=== PATIENT | male | born 1960 | race Caucasian/White ===

== ENCOUNTER 2022-11-16 11:03 | Inpatient (IN) | payer MEDICARE, MEDICAID ==
[~2022-11-16] VITALS: Ht 165.1 cm; Wt 56.8 kg
[~2022-11-16 11:03] MED LIST: PHEN100C PO
[2022-11-16] MEDS ORDERED: SODIUM CHLORIDE 0.9% 1,000 ML IVB ONE (13:15)
[2022-11-16 14:42] LABS: Basophils # (auto) 0.1 10 ^3/uL (0-0.2); Eosinophils # (auto) 0 10 ^3/uL (0-0.8); Hematocrit 50.9 % (41.0-53.0); Hemoglobin 16.3 g/dL (13.5-17.5); Lymphocytes # (auto) 1.4 10 ^3/uL (0.4-5.4); Mean Corpuscular Hemoglobin 31.2 pg (28.0-32.0); Mean Corpuscular Hgb Conc. 32.1 g/dL (32.0-36.0); Mean Corpuscular Volume 97.1 fL (80.0-100.0); Monocytes # (auto) 1.2 10 ^3/uL (0-1.3); Monocytes % (auto) 9.5 % (0.0-12.0); Neutrophils # (auto) 9.7 10 ^3/uL (1.6-8.6); Neutrophils % (auto) 78.5 % (37.0-80.0); Nucleated Red Blood Cells % 0.2 %; Red Blood Cells 5.25 10^6/uL (4.5-5.90); Red Cell Distribution Width 14.2 % (11.8-14.3); White Blood Cell 12.3 10^3/uL (4.4-10.8)
[2022-11-16 14:55] LABS: Albumin 3.7 g/dL (3.4-5.0); Anion Gap 4 (5-15); BUN/Creatinine Ratio 30.6; Blood Alcohol < 3.0 mg/dL (0-5); Blood Urea Nitrogen 34 mg/dL (7-18); Calcium 9.5 mg/dL (8.5-10.1); Carbon Dioxide 32 mmol/L (21-32); Chloride 128 mmol/L (98-107); GFR African American 86 mL/min; GFR Non-African American 71 mL/min; Glucose 129 mg/dL (74-106); Potassium 4.3 mmol/L (3.5-5.1)
[2022-11-16 14:58] LABS: Alanine Aminotransferase 32 U/L (16-61); Alkaline Phosphatase 170 U/L (45-117); Aspartate Aminotransferase 19 U/L (15-37); Bilirubin, Total 0.3 mg/dL (0.2-1.0); Total Protein 8.5 g/dL (6.4-8.2)
[2022-11-16 15:11] LABS: Sodium 164 mmol/L (136-145)
[2022-11-16] MEDS ORDERED: MORPHINE SULFATE INJ 2 MG/ml SYRG IV PRN (16:15)
[2022-11-16] MEDS ORDERED: BISACODYL 10 MG RECT SUPP PR ONE (16:15)
[2022-11-16] MEDS ORDERED: NITROGLYCERIN 0.4 MG SL TAB SL PRN (16:15)
[2022-11-16] MEDS ORDERED: BISACODYL 10 MG RECT SUPP PR PRN (16:15)
[2022-11-16] MEDS ORDERED: PANTOPRAZOLE 40 MG/10 ML VIAL INJ IV ONE (16:45)
[2022-11-16] MEDS: D5W 5% 1,000 ML IV SCH ×2 (17:11→23:10)
[2022-11-16 22:56] VITALS: BP 124/78
[2022-11-17 01:01] LABS: Potassium 4.2 mmol/L (3.5-5.1)
[2022-11-17 01:02] LABS: BUN/Creatinine Ratio 30.3; Calcium 8.8 mg/dL (8.5-10.1)
[2022-11-17] MEDS: D5W 5% 1,000 ML IV SCH ×2 (04:55→12:30)
[2022-11-17 05:00] VITALS: BP 124/80
[2022-11-17 06:57] LABS: Basophils # (auto) 0 10 ^3/uL (0-0.2); Basophils % (auto) 0.4 % (0.0-2.0); Eosinophils # (auto) 0 10 ^3/uL (0-0.8); Eosinophils % (auto) 0.5 % (0.0-7.0); Hematocrit 41.4 % (41.0-53.0); Lymphocytes # (auto) 1.4 10 ^3/uL (0.4-5.4); Lymphocytes % (auto) 20.5 % (10.0-50.0); Mean Corpuscular Hgb Conc. 31.4 g/dL (32.0-36.0); Mean Corpuscular Volume 98.6 fL (80.0-100.0); Monocytes # (auto) 0.6 10 ^3/uL (0-1.3); Neutrophils # (auto) 4.9 10 ^3/uL (1.6-8.6); Neutrophils % (auto) 69.6 % (37.0-80.0); Nucleated Red Blood Cells % 0.1 %; Red Cell Distribution Width 14.4 % (11.8-14.3)
[2022-11-17 07:15] LABS: Calcium 8.7 mg/dL (8.5-10.1); Potassium 3.8 mmol/L (3.5-5.1)
[2022-11-17 07:17] LABS: BUN/Creatinine Ratio 33.7
[2022-11-17 08:00] VITALS: BP 126/83
[2022-11-17 09:00] VITALS: BP 126/83
[2022-11-17] MEDS ORDERED: BISACODYL 10 MG RECT SUPP PR PRN (10:00)
[2022-11-17] MEDS: PHENYTOIN SODIUM 100 MG CAP PO SCH ×2 (10:00→21:09)
[2022-11-17] MEDS: ENOXAPARIN SOD 40 MG/0.4 ML SYRINGE SC SCH (10:39)
[2022-11-17] MEDS: PANTOPRAZOLE 40 MG/10 ML VIAL INJ IV SCH (10:39)
[2022-11-17] MEDS ORDERED: FLEET MINERAL OIL ENEMA 133 ML PR ONE ×2 (11:00→20:45)
[2022-11-17 12:08] LABS: Urine Bacteria FEW /hpf (None Seen); Urine Blood Negative /uL (Negative); Urine Mucus FEW (None Seen); Urine Specific Gravity 1.026 (1.001-1.035); Urine WBC 27 /hpf (0 - 3)
[2022-11-17 12:39] LABS: Anion Gap 3 (5-15); BUN/Creatinine Ratio 31.3; Blood Urea Nitrogen 25 mg/dL (7-18); Calcium 8.2 mg/dL (8.5-10.1); Carbon Dioxide 30 mmol/L (21-32); Chloride 121 mmol/L (98-107); GFR African American 126 mL/min; GFR Non-African American 104 mL/min; Glucose 101 mg/dL (74-106); Potassium 3.7 mmol/L (3.5-5.1); Sodium 154 mmol/L (136-145)
[2022-11-17 13:00] VITALS: BP 127/80
[2022-11-17] MEDS: SOD CHL 0.45% 1,000 ML IV SCH ×2 (15:22→20:15)
[2022-11-17 17:00] VITALS: BP 148/88
[2022-11-17 20:52] LABS: Chloride 117 mmol/L (98-107); Potassium 4.1 mmol/L (3.5-5.1); Sodium 150 mmol/L (136-145)
[2022-11-17 20:53] LABS: Anion Gap 6 (5-15); BUN/Creatinine Ratio 26.7; Blood Urea Nitrogen 24 mg/dL (7-18); Calcium 8.5 mg/dL (8.5-10.1); Carbon Dioxide 27 mmol/L (21-32); GFR African American 110 mL/min; GFR Non-African American 91 mL/min; Glucose 85 mg/dL (74-106)
[2022-11-17 22:00] VITALS: BP 109/53
[2022-11-17] MEDS ORDERED: ACETAMINOPHEN 325 MG TAB PO PRN (22:45)
[2022-11-18] VITALS (68 sets, daily range): BP systolic 84–122; BP diastolic 44–80
[2022-11-18 01:13] LABS: Anion Gap 6 (5-15); BUN/Creatinine Ratio 25.3; Blood Urea Nitrogen 24 mg/dL (7-18); Carbon Dioxide 25 mmol/L (21-32); Chloride 117 mmol/L (98-107); GFR African American 103 mL/min; GFR Non-African American 85 mL/min; Glucose 88 mg/dL (74-106); Potassium 3.9 mmol/L (3.5-5.1); Sodium 148 mmol/L (136-145)
[2022-11-18] MEDS: SOD CHL 0.45% 1,000 ML IV SCH (04:15)
[2022-11-18] MEDS ORDERED: NOREPINEPHRINE 8 MG/250ML KIT 250 ML IV ONE (06:11)
[2022-11-18] MEDS ORDERED: SODIUM CHLORIDE 0.9% 1,000 ML IV SCH (06:30)
[2022-11-18 06:35] LABS: BUN/Creatinine Ratio 17.6; Calcium 8.1 mg/dL (8.5-10.1); Potassium 3.9 mmol/L (3.5-5.1)
[2022-11-18] MEDS: NOREPINEPHRINE 8 MG/250ML KIT 250 ML IV SCH (07:39)
[2022-11-18 07:44] LABS: Basophils # (auto) 0 10 ^3/uL (0-0.2); Basophils % (auto) 0.1 % (0.0-2.0); Eosinophils # (auto) 0 10 ^3/uL (0-0.8); Eosinophils % (auto) 0.1 % (0.0-7.0); Hematocrit 38.9 % (41.0-53.0); Hemoglobin 12.3 g/dL (13.5-17.5); Lymphocytes # (auto) 1.4 10 ^3/uL (0.4-5.4); Lymphocytes % (auto) 6.3 % (10.0-50.0); Mean Corpuscular Hgb Conc. 31.6 g/dL (32.0-36.0); Mean Corpuscular Volume 97.9 fL (80.0-100.0); Monocytes # (auto) 1.2 10 ^3/uL (0-1.3); Monocytes % (auto) 5.3 % (0.0-12.0); Neutrophils # (auto) 19.4 10 ^3/uL (1.6-8.6); Neutrophils % (auto) 88.2 % (37.0-80.0); Nucleated Red Blood Cells % 0.1 %; Red Blood Cells 3.98 10^6/uL (4.5-5.90); Red Cell Distribution Width 13.9 % (11.8-14.3)
[2022-11-18] MEDS ORDERED: cefTRIAXone 1GM/50ML D5W 50 ML IV ONE (09:30)
[2022-11-18] MEDS ORDERED: FLEET MINERAL OIL ENEMA 133 ML PR ONE (09:45)
[2022-11-18] MEDS ORDERED: PHENYTOIN SODIUM 100 MG CAP PO SCH (10:00)
[2022-11-18] MEDS: PHENYTOIN SODIUM 100 MG CAP PO SCH (10:07)
[2022-11-18] MEDS: D5W 5% 1,000 ML IV SCH ×2 (10:07→17:45)
[2022-11-18] MEDS: PANTOPRAZOLE 40 MG/10 ML VIAL INJ IV SCH (10:08)
[2022-11-18] MEDS: ENOXAPARIN SOD 40 MG/0.4 ML SYRINGE SC SCH (10:09)
[2022-11-18 13:05] LABS: BUN/Creatinine Ratio 18.1; Calcium 7.2 mg/dL (8.5-10.1); Potassium 4.2 mmol/L (3.5-5.1)
[2022-11-18] MEDS: PIPERACILLIN-TAZOB 3.375GM 100 ML IV SCH ×2 (13:53→22:19)
[2022-11-19] VITALS (95 sets, daily range): BP systolic 84–125; BP diastolic 51–79
[2022-11-19] MEDS: PIPERACILLIN-TAZOB 3.375GM 100 ML IV SCH ×2 (01:00→05:37)
[2022-11-19] MEDS: D5W 5% 1,000 ML IV SCH ×5 (01:45→23:58)
[2022-11-19] MEDS: NOREPINEPHRINE 8 MG/250ML KIT 250 ML IV SCH (03:36)
[2022-11-19] MEDS ORDERED: cefTRIAXone 1GM/50ML D5W 50 ML IV SCH (09:00)
[2022-11-19] MEDS: ENOXAPARIN SOD 40 MG/0.4 ML SYRINGE SC SCH (09:15)
[2022-11-19] MEDS: PHENYTOIN SODIUM 100 MG CAP PO SCH (09:15)
[2022-11-19] MEDS: PANTOPRAZOLE 40 MG/10 ML VIAL INJ IV SCH (09:15)
[2022-11-19] MEDS ORDERED: cefTRIAXone 1GM/50ML D5W 50 ML IV ONE (10:00)
[2022-11-20] VITALS (90 sets, daily range): BP systolic 81–116; BP diastolic 48–76
[2022-11-20] MEDS: NOREPINEPHRINE 8 MG/250ML KIT 250 ML IV SCH ×2 (06:37→06:53)
[2022-11-20] MEDS: cefTRIAXone 1GM/50ML D5W 50 ML IV SCH (08:47)
[2022-11-20] MEDS: PANTOPRAZOLE 40 MG/10 ML VIAL INJ IV SCH (08:48)
[2022-11-20] MEDS: D5W 5% 1,000 ML IV SCH ×2 (08:48→18:03)
[2022-11-20] MEDS: ENOXAPARIN SOD 40 MG/0.4 ML SYRINGE SC SCH (08:48)
[2022-11-20] MEDS: PHENYTOIN SODIUM 100 MG CAP PO SCH (08:48)
[2022-11-20] MEDS: MIDODRINE HCL 10 MG TAB PO SCH ×2 (12:00→17:57)
[2022-11-21] VITALS (64 sets, daily range): BP systolic 82–120; BP diastolic 49–76
[2022-11-21] MEDS: D5W 5% 1,000 ML IV SCH ×3 (02:27→12:33)
[2022-11-21] MEDS: MIDODRINE HCL 10 MG TAB PO SCH ×3 (06:00→18:09)
[2022-11-21 08:03] LABS: Basophils # (auto) 0 10 ^3/uL (0-0.2); Basophils % (auto) 0.5 % (0.0-2.0); Eosinophils # (auto) 0.2 10 ^3/uL (0-0.8); Eosinophils % (auto) 3.7 % (0.0-7.0); Hematocrit 34.1 % (41.0-53.0); Hemoglobin 11.7 g/dL (13.5-17.5); Lymphocytes # (auto) 1.1 10 ^3/uL (0.4-5.4); Lymphocytes % (auto) 16.6 % (10.0-50.0); Mean Corpuscular Hemoglobin 31.7 pg (28.0-32.0); Mean Corpuscular Hgb Conc. 34.3 g/dL (32.0-36.0); Mean Corpuscular Volume 92.4 fL (80.0-100.0); Monocytes # (auto) 0.5 10 ^3/uL (0-1.3); Monocytes % (auto) 6.9 % (0.0-12.0); Neutrophils # (auto) 4.8 10 ^3/uL (1.6-8.6); Neutrophils % (auto) 72.3 % (37.0-80.0); Red Blood Cells 3.69 10^6/uL (4.5-5.90); Red Cell Distribution Width 13.1 % (11.8-14.3); White Blood Cell 6.6 10^3/uL (4.4-10.8)
[2022-11-21 08:20] LABS: BUN/Creatinine Ratio 5.8; Calcium 7.5 mg/dL (8.5-10.1)
[2022-11-21 08:28] LABS: Potassium 2.8 mmol/L (3.5-5.1)
[2022-11-21] MEDS: PANTOPRAZOLE 40 MG/10 ML VIAL INJ IV SCH (09:47)
[2022-11-21] MEDS: cefTRIAXone 1GM/50ML D5W 50 ML IV SCH (09:47)
[2022-11-21] MEDS: ENOXAPARIN SOD 40 MG/0.4 ML SYRINGE SC SCH (09:48)
[2022-11-21] MEDS: PHENYTOIN SODIUM 100 MG CAP PO SCH (09:48)
[2022-11-21] MEDS: POTASSIUM CHL 20MEQ/100ML 100 ML IV SCH ×3 (10:55→13:06)
[2022-11-22] MEDS: D5W 5% 1,000 ML IV SCH ×3 (01:15→19:52)
[2022-11-22 05:28] VITALS: BP 100/70
[2022-11-22] MEDS: MIDODRINE HCL 10 MG TAB PO SCH ×3 (05:44→18:37)
[2022-11-22 09:00] VITALS: BP 96/60
[2022-11-22] MEDS: cefTRIAXone 1GM/50ML D5W 50 ML IV SCH (09:34)
[2022-11-22] MEDS: PHENYTOIN SODIUM 100 MG CAP PO SCH (09:34)
[2022-11-22] MEDS: ENOXAPARIN SOD 40 MG/0.4 ML SYRINGE SC SCH (09:34)
[2022-11-22] MEDS: PANTOPRAZOLE 40 MG/10 ML VIAL INJ IV SCH (09:34)
[2022-11-22 12:14] LABS: BUN/Creatinine Ratio 10.2; Calcium 7.6 mg/dL (8.5-10.1); Potassium 3.4 mmol/L (3.5-5.1)
[2022-11-22] MEDS: POTASSIUM CHL 20MEQ/100ML 100 ML IV SCH ×2 (12:57→15:21)
[2022-11-22 13:19] VITALS: BP 95/66
[2022-11-22 17:27] VITALS: BP 100/66
[2022-11-22] MEDS: Ensure HIGH Protein Chocolate 8oz Bottle PO SCH (18:37)
[2022-11-22 21:37] VITALS: BP 121/68
[2022-11-23] MEDS: D5W 5% 1,000 ML IV SCH ×2 (01:45→09:45)
[2022-11-23 05:02] VITALS: BP 100/66
[2022-11-23] MEDS: MIDODRINE HCL 10 MG TAB PO SCH ×2 (05:58→12:12)
[2022-11-23 06:41] LABS: Albumin 2.2 g/dL (3.4-5.0); BUN/Creatinine Ratio 12.7; Bilirubin, Total 0.2 mg/dL (0.2-1.0); Calcium 7.7 mg/dL (8.5-10.1); Total Protein 5.7 g/dL (6.4-8.2)
[2022-11-23] MEDS: cefTRIAXone 1GM/50ML D5W 50 ML IV SCH (09:00)
[2022-11-23] MEDS: PHENYTOIN SODIUM 100 MG CAP PO SCH (09:06)
[2022-11-23] MEDS: ENOXAPARIN SOD 40 MG/0.4 ML SYRINGE SC SCH (09:06)
[2022-11-23] MEDS: Ensure HIGH Protein Chocolate 8oz Bottle PO SCH (09:11)
[2022-11-23] MEDS: PANTOPRAZOLE 40 MG/10 ML VIAL INJ IV SCH (10:00)
[2022-11-23] MEDS ORDERED: MIDO10TA2 PO (10:04)
[2022-11-23] MEDS ORDERED: POTA-220 PO (10:04)
[2022-11-23] MEDS ORDERED: CIPR-173 PO (10:04)
[2022-11-23 10:37] VITALS: BP 97/61
[2022-11-23 14:57] VITALS: BP 97/61
[2022-11-23 15:55] VITALS: BP 102/64
== END 2022-11-23 16:28 | disposition home or self-care (01) | DRG 871 ==
LOC: EDUNIT# 11:03 → EDBD 11:03 → ER 11:03 → TELE 16:19 → TELE-WESTW 22:38 → ICU WEST 11-18 06:29 → TELE-WESTW 11-21 16:43
PROVIDERS: ADMIT Nurse Practitioner Family; ATTEND Family Medicine
DX: A41.9 Sepsis, unspecified organism (principal); J69.0 Pneumonitis due to inhalation of food and vomit; R65.21 Severe sepsis with septic shock; K56.699 Other intestinal obstruction unspecified as to partial versus complete obstruction; E87.0 Hyperosmolality and hypernatremia; N39.0 Urinary tract infection, site not specified; N17.9 Acute kidney failure, unspecified; K56.41 Fecal impaction; T42.0X5A Adverse effect of hydantoin derivatives, initial encounter; R73.9 Hyperglycemia, unspecified; Z20.822 Contact with and (suspected) exposure to COVID-19; E86.0 Dehydration; E87.6 Hypokalemia; F79 Unspecified intellectual disabilities; G40.909 Epilepsy, unspecified, not intractable, without status epilepticus; Z90.5 Acquired absence of kidney; Z80.3 Family history of malignant neoplasm of breast; Y92.89 Other specified places as the place of occurrence of the external cause; E83.41 Hypermagnesemia
CPT/HCPCS: 36415; 70450; 71045; 74018; 74176; 80048; 80053; 80185; 80320; 81001; 82533; 83036; 83735; 84443; 85025; 87040; 87081; 87086; 87088; 87186; 87426; 93005; 93306; 96361; 96374; C9113; G0378; J0696; J2543; J3480; J7042

== ENCOUNTER 2023-10-15 22:19 | Emergency (ER) | payer MEDICARE, MEDICAID ==
[~2023-10-15] VITALS: Ht 177.8 cm; Wt 68.2 kg
[~2023-10-15 22:19] MED LIST changes: +CIPR-173 PO; +MIDO10TA3 PO; +POTA-220 PO
[2023-10-15] MEDS ORDERED: LORazepam 2MG/ML-1ML VIAL IV ONE ×2 (22:30→23:15)
[2023-10-15 23:00] VITALS: PULSE 74; RESP 18; O2SAT 96
[2023-10-15] MEDS ORDERED: levETIRAcetam 1000 mg/100ml 100 ML IV ONE (23:15)
[2023-10-16 00:09] LABS: Basophils # (auto) 0 10 ^3/uL (0-0.2); Basophils % (auto) 0.4 % (0.0-2.0); Eosinophils # (auto) 0.5 10 ^3/uL (0-0.8); Eosinophils % (auto) 6.5 % (0.0-7.0); Hematocrit 38.9 % (41.0-53.0); Hemoglobin 12.8 g/dL (13.5-17.5); Lymphocytes # (auto) 1.2 10 ^3/uL (0.4-5.4); Lymphocytes % (auto) 16.5 % (10.0-50.0); Mean Corpuscular Hemoglobin 29.9 pg (28.0-32.0); Mean Corpuscular Volume 90.6 fL (80.0-100.0); Monocytes # (auto) 0.6 10 ^3/uL (0-1.3); Monocytes % (auto) 8.3 % (0.0-12.0); Neutrophils # (auto) 4.8 10 ^3/uL (1.6-8.6); Neutrophils % (auto) 68.3 % (37.0-80.0); Red Cell Distribution Width 14.4 % (11.8-14.3); White Blood Cell 7.1 10^3/uL (4.4-10.8)
[2023-10-16 00:25] LABS: Alanine Aminotransferase 27 U/L (7-40); Albumin 4.3 g/dL (3.2-4.8); Alkaline Phosphatase 137 U/L (46-116); Anion Gap 9 (5-15); Aspartate Aminotransferase 23 U/L (13-40); BUN/Creatinine Ratio 15.5 (10.0-20.0); Bilirubin, Total 0.3 mg/dL (0.2-1.0); Blood Urea Nitrogen 11 mg/dL (9-23); Calcium 9.3 mg/dL (8.7-10.4); Carbon Dioxide 23 mmol/L (20-30); Chloride 104 mmol/L (98-107); Glucose 104 mg/dL (74-106); Magnesium 2.1 mg/dL (1.6-2.6); Potassium 4.4 mmol/L (3.5-5.1); Sodium 136 mmol/L (136-145); Total Protein 7.5 g/dL (5.7-8.2)
[2023-10-16] MEDS ORDERED: PHENYTOIN SODIUM 50 MG/ML 2ML VIAL IV ONE ×2 (01:00→01:30)
[2023-10-16] MEDS ORDERED: PHENYTOIN SODIUM 100 MG CAP PO ONE (01:00)
[2023-10-16 01:58] VITALS: BP 100/67; PULSE 83; RESP 16; TEMP 97.9; O2SAT 91
== END 2023-10-16 02:31 | disposition home or self-care (01) ==
LOC: ER 22:19 → EDBD 22:19 → EDUNIT# 22:19 → ER 10-16 02:15
DX: R56.9 Unspecified convulsions (principal)
CPT/HCPCS: 36415; 71045; 80053; 80185; 83735; 85025; 93005; 96365; 96375; 99285; J1165; J1953; J2060

== ENCOUNTER 2024-03-20 15:40 | Emergency (ER) | payer MEDICARE, MEDICAID ==
[~2024-03-20] VITALS: Ht 193 cm; Wt 60.0 kg
[2024-03-20 17:53] LABS: Basophils # (auto) 0 10 ^3/uL (0-0.2); Basophils % (auto) 0.1 % (0.0-2.0); Eosinophils # (auto) 0.1 10 ^3/uL (0-0.8); Eosinophils % (auto) 1.3 % (0.0-7.0); Hematocrit 50.4 % (41.0-53.0); Hemoglobin 16.7 g/dL (13.5-17.5); Lymphocytes # (auto) 1.8 10 ^3/uL (0.4-5.4); Lymphocytes % (auto) 18.2 % (10.0-50.0); Mean Corpuscular Hemoglobin 31.1 pg (28.0-32.0); Mean Corpuscular Hgb Conc. 33.1 g/dL (32.0-36.0); Monocytes # (auto) 0.9 10 ^3/uL (0-1.3); Monocytes % (auto) 9.7 % (0.0-12.0); Neutrophils # (auto) 6.9 10 ^3/uL (1.6-8.6); Neutrophils % (auto) 70.7 % (37.0-80.0); Red Blood Cells 5.36 10^6/uL (4.5-5.90); Red Cell Distribution Width 13.8 % (11.8-14.3); White Blood Cell 9.7 10^3/uL (4.4-10.8)
[2024-03-20 18:31] LABS: Alanine Aminotransferase 46 U/L (7-40); Albumin 4.6 g/dL (3.2-4.8); Alkaline Phosphatase 180 U/L (46-116); Anion Gap 14 (5-15); Aspartate Aminotransferase 31 U/L (13-40); BUN/Creatinine Ratio 15.9 (10.0-20.0); Blood Urea Nitrogen 13 mg/dL (9-23); Calcium 10.6 mg/dL (8.7-10.4); Carbon Dioxide 20 mmol/L (20-30); Chloride 107 mmol/L (98-107); Glucose 107 mg/dL (74-106); Lipase 36 U/L (12-53); Potassium 4.3 mmol/L (3.5-5.1); Sodium 141 mmol/L (136-145)
[2024-03-20 18:32] LABS: Bilirubin, Total 0.5 mg/dL (0.2-1.0); Total Protein 8.6 g/dL (5.7-8.2)
[2024-03-20 19:45] LABS: Lactic Acid w/Reflex 2.1 mmol/L (0.4-2.0)
[2024-03-20] MEDS: KETOROLAC TROMETH 60MG/2ML VIAL IM ONE (22:19)
[2024-03-20] MEDS: ONDANSETRON HCL 4 MG/2 ML VIAL IM ONE (22:20)
[2024-03-20] MEDS: SODIUM CHLORIDE 0.9% 1,000 ML IV ONE (22:24)
[2024-03-20] MEDS: KETOROLAC TROMETH 30 MG/ML 1ML VIAL IV ONE (22:55)
[2024-03-20] MEDS: ONDANSETRON HCL 4 MG/2 ML VIAL IV ONE (22:56)
[2024-03-21] MEDS: cefTRIAXone SOD 1,000 MG VL IM ONE (00:49)
[2024-03-21 01:10] VITALS: BP 137/65; PULSE 96; RESP 20; TEMP 97.9; O2SAT 96
== END 2024-03-21 01:49 | disposition admitted as inpatient to this hospital (09) ==
LOC: ER 15:40
DX: E86.0 Dehydration (principal); R00.0 Tachycardia, unspecified; Z98.890 Other specified postprocedural states; Z79.899 Other long term (current) drug therapy
CPT/HCPCS: 36415; 71045; 80053; 83605; 83690; 83880; 84484; 85025; 93005; 96361; 96372; 96374; 96375; 99285; J0696; J1885; J2405; J7030

== ENCOUNTER 2024-04-09 11:20 | Inpatient (IN) | payer MEDICARE, MEDICAID ==
[~2024-04-09] VITALS: Ht 177.8 cm; Wt 93.0 kg
[2024-04-09 12:10] VITALS: PULSE 111; RESP 20; O2SAT 92
[2024-04-09 13:01] LABS: Basophils # (auto) 0 10 ^3/uL (0-0.2); Basophils % (auto) 0.2 % (0.0-2.0); Eosinophils # (auto) 0 10 ^3/uL (0-0.8); Eosinophils % (auto) 0.3 % (0.0-7.0); Hematocrit 52.1 % (41.0-53.0); Lymphocytes % (auto) 21.2 % (10.0-50.0); Mean Corpuscular Hemoglobin 30.8 pg (28.0-32.0); Mean Corpuscular Hgb Conc. 32.6 g/dL (32.0-36.0); Mean Corpuscular Volume 94.5 fL (80.0-100.0); Monocytes # (auto) 0.8 10 ^3/uL (0-1.3); Monocytes % (auto) 8.2 % (0.0-12.0); Neutrophils # (auto) 6.6 10 ^3/uL (1.6-8.6); Neutrophils % (auto) 70.1 % (37.0-80.0); Nucleated Red Blood Cells % 0.1 %; Red Blood Cells 5.51 10^6/uL (4.5-5.90); Red Cell Distribution Width 14.3 % (11.8-14.3); White Blood Cell 9.4 10^3/uL (4.4-10.8)
[2024-04-09 13:16] LABS: Chloride 126 mmol/L (98-107); Potassium 3.9 mmol/L (3.5-5.1)
[2024-04-09 13:17] LABS: Anion Gap 10 (5-15); Calcium 10.6 mg/dL (8.5-10.1); Carbon Dioxide 29 mmol/L (20-30)
[2024-04-09 13:22] LABS: Blood Urea Nitrogen 31 mg/dL (9-23); Glucose 123 mg/dL (74-106)
[2024-04-09 13:28] LABS: Sodium 165 mmol/L (136-145)
[2024-04-09] MEDS: diphenhdrAMINE HCL 50 MG/1 ML VL IV ONE (16:41)
[2024-04-09] MEDS ORDERED: DOCUSATE SOD 100 MG CAP PO PRN (18:15)
[2024-04-09] MEDS ORDERED: ACETAMINOPHEN 325 MG TAB PO PRN (18:15)
[2024-04-09] MEDS ORDERED: MORPHINE SULFATE INJ 2 MG/ml SYRG IV PRN (18:15)
[2024-04-09] MEDS ORDERED: NITROGLYCERIN 0.4 MG SL TAB SL PRN (18:15)
[2024-04-09] MEDS ORDERED: ONDANSETRON HCL 4 MG/2 ML VIAL IV PRN (18:15)
[2024-04-09] MEDS ORDERED: D5W 5% 1,000 ML IV SCH (18:15)
[2024-04-09] MEDS: D5W 5% 1,000 ML IV ONE ×2 (18:40)
[2024-04-09 20:00] VITALS: PULSE 107
[2024-04-09 21:00] VITALS: BP 113/68; PULSE 107; RESP 18; TEMP 97.4; O2SAT 96
[2024-04-09 21:07] VITALS: PULSE 107; RESP 18; O2SAT 96
[2024-04-09] MEDS: FLEET ENEMA(ADULT) 135 ML PR ONE (21:39)
[2024-04-09] MEDS ORDERED: LEVE250T18 PO (21:47)
[2024-04-10] VITALS (8 sets, daily range): BP systolic 110–145; BP diastolic 67–80; PULSE 80–122; RESP 15–19; TEMP 97.4–98.2; O2SAT 93–99
[2024-04-10] MEDS: D5W 5% 1,000 ML IV SCH ×2 (01:41→13:45)
[2024-04-10] MEDS ORDERED: D5W 5% 1,000 ML IV SCH ×2 (02:00)
[2024-04-10 06:18] LABS: Basophils # (auto) 0 10 ^3/uL (0-0.2); Basophils % (auto) 0.1 % (0.0-2.0); Eosinophils # (auto) 0 10 ^3/uL (0-0.8); Eosinophils % (auto) 0.4 % (0.0-7.0); Hemoglobin 15.8 g/dL (13.5-17.5); Lymphocytes # (auto) 1.4 10 ^3/uL (0.4-5.4); Lymphocytes % (auto) 14.1 % (10.0-50.0); Mean Corpuscular Hgb Conc. 32.9 g/dL (32.0-36.0); Mean Corpuscular Volume 94.4 fL (80.0-100.0); Monocytes # (auto) 0.8 10 ^3/uL (0-1.3); Monocytes % (auto) 7.9 % (0.0-12.0); Neutrophils # (auto) 7.8 10 ^3/uL (1.6-8.6); Neutrophils % (auto) 77.5 % (37.0-80.0); Red Blood Cells 5.09 10^6/uL (4.5-5.90); Red Cell Distribution Width 14.4 % (11.8-14.3); White Blood Cell 10.1 10^3/uL (4.4-10.8)
[2024-04-10 06:35] LABS: Alanine Aminotransferase 31 U/L (7-40); Albumin 4.2 g/dL (3.2-4.8); Alkaline Phosphatase 115 U/L (46-116); Anion Gap 11 (5-15); Aspartate Aminotransferase 21 U/L (13-40); BUN/Creatinine Ratio 23.5 (10.0-20.0); Blood Urea Nitrogen 24 mg/dL (9-23); Calcium 9.4 mg/dL (8.5-10.1); Carbon Dioxide 28 mmol/L (20-30); Chloride 122 mmol/L (98-107); Glucose 116 mg/dL (74-106); Potassium 3.6 mmol/L (3.5-5.1); Total Protein 7.2 g/dL (5.7-8.2)
[2024-04-10 06:36] LABS: Bilirubin, Total 0.6 mg/dL (0.2-1.0)
[2024-04-10 06:51] LABS: Sodium 161 mmol/L (136-145)
[2024-04-10] MEDS ORDERED: LORazepam 2MG/ML-1ML VIAL IV PRN (22:15)
[2024-04-11] VITALS (7 sets, daily range): BP systolic 115–135; BP diastolic 69–81; PULSE 82–96; RESP 17–20; TEMP 97.4–98.1; O2SAT 92–99
[2024-04-11] MEDS: SOD CHL 0.45% 1,000 ML IV ONE (02:26)
[2024-04-11] MEDS: FLEET ENEMA(ADULT) 135 ML PR ONE (08:45)
[2024-04-11] MEDS ORDERED: LACTULOSE 20Gm/30ML SOLN PO SCH (10:00)
[2024-04-11] MEDS: OXcarbazepine 300 MG TAB PO SCH (11:26)
[2024-04-11] MEDS: LACTULOSE 20Gm/30ML SOLN PO SCH (11:26)
[2024-04-11] MEDS: POLYETHYLENE GLYCOL 17 GM PWDR PO SCH (11:26)
[2024-04-11 14:00] LABS: Chloride 119 mmol/L (98-107); Potassium 3.3 mmol/L (3.5-5.1); Sodium 157 mmol/L (136-145)
[2024-04-11 14:01] LABS: Anion Gap 7 (5-15); Calcium 9.7 mg/dL (8.5-10.1); Carbon Dioxide 31 mmol/L (20-30)
[2024-04-11 14:06] LABS: BUN/Creatinine Ratio 21.4 (10.0-20.0); Blood Urea Nitrogen 22 mg/dL (9-23); Glucose 115 mg/dL (74-106)
[2024-04-11] MEDS: POTASSIUM CHL 20MEQ/100ML 100 ML IV SCH (20:30)
[2024-04-12 05:00] VITALS: BP 114/73; PULSE 85; RESP 18; TEMP 98; O2SAT 95
[2024-04-12 06:07] LABS: Calcium 9.7 mg/dL (8.5-10.1); Chloride 118 mmol/L (98-107); Potassium 3.8 mmol/L (3.5-5.1); Sodium 154 mmol/L (136-145)
[2024-04-12 06:08] LABS: Anion Gap 9 (5-15); Carbon Dioxide 27 mmol/L (20-30)
[2024-04-12 06:13] LABS: BUN/Creatinine Ratio 17.7 (10.0-20.0); Blood Urea Nitrogen 17 mg/dL (9-23); Glucose 99 mg/dL (74-106)
[2024-04-12 09:00] VITALS: BP 128/79; PULSE 74; RESP 16; TEMP 97.2; O2SAT 96
[2024-04-12] MEDS: FLEET ENEMA(ADULT) 135 ML PR ONE (12:30)
[2024-04-12 13:00] VITALS: BP 122/77; PULSE 77; RESP 12; TEMP 97.2; O2SAT 95
[2024-04-12 16:59] VITALS: BP 126/78; PULSE 92; RESP 16; TEMP 97.3; O2SAT 93
[2024-04-12 21:00] VITALS: BP 126/78; PULSE 99; RESP 20; TEMP 98.8; O2SAT 95
[2024-04-13 05:59] LABS: Calcium 9.5 mg/dL (8.5-10.1); Chloride 120 mmol/L (98-107); Potassium 3.7 mmol/L (3.5-5.1); Sodium 158 mmol/L (136-145)
[2024-04-13 06:00] LABS: Anion Gap 11 (5-15); Carbon Dioxide 27 mmol/L (20-30)
[2024-04-13 06:05] LABS: Blood Urea Nitrogen 19 mg/dL (9-23); Glucose 101 mg/dL (74-106)
[2024-04-13 09:00] VITALS: BP 116/83; PULSE 97; RESP 17; TEMP 97.1; O2SAT 95
[2024-04-13] MEDS: D5W 5% 1,000 ML IV SCH (10:00)
[2024-04-13 13:00] VITALS: BP 119/71; PULSE 85; RESP 14; TEMP 97.1; O2SAT 92
[2024-04-13 17:00] VITALS: BP_SYST 119; BP_SYST 131; BP_DIAS 71; BP_DIAS 73; PULSE 85; PULSE 97; RESP 14; RESP 20; TEMP 97; TEMP 97.1; O2SAT 92; O2SAT 95
[2024-04-13 20:00] VITALS: PULSE 84; RESP 17; O2SAT 95
[2024-04-13 21:53] VITALS: BP 122/69; PULSE 84; RESP 17; TEMP 97.8; O2SAT 95
[2024-04-13] MEDS: ACETAMINOPHEN 325 MG TAB PO PRN (23:02)
[2024-04-14 01:04] VITALS: BP 123/74; PULSE 83; RESP 17; TEMP 97.9; O2SAT 93
[2024-04-14 05:15] VITALS: BP 125/79; PULSE 75; RESP 17; TEMP 97.9; O2SAT 97
[2024-04-14 07:32] LABS: Anion Gap 5 (5-15); Carbon Dioxide 28 mmol/L (20-30); Chloride 118 mmol/L (98-107); Potassium 3.3 mmol/L (3.5-5.1)
[2024-04-14 07:33] LABS: Calcium 9.1 mg/dL (8.5-10.1)
[2024-04-14 07:38] LABS: BUN/Creatinine Ratio 17.8 (10.0-20.0); Blood Urea Nitrogen 16 mg/dL (9-23); Glucose 114 mg/dL (74-106)
[2024-04-14 07:41] LABS: Sodium 151 mmol/L (136-145)
[2024-04-14 08:00] VITALS: PULSE 71; RESP 16; O2SAT 96
[2024-04-14 09:00] VITALS: BP 122/72; PULSE 71; RESP 16; TEMP 96.5; O2SAT 96
[2024-04-14] MEDS ORDERED: POTASSIUM CHL 20MEQ/100ML 100 ML IV SCH (09:30)
[2024-04-14] MEDS ORDERED: OXCA600T3 PO (10:21)
[2024-04-14] MEDS: POTASSIUM EFFERVESENT TAB 25 MEQ PO ONE (11:06)
[2024-04-14 12:15] VITALS: BP 138/76; PULSE 76; RESP 17; TEMP 96.8; O2SAT 96
== END 2024-04-14 13:20 | disposition home health service (06) | DRG 389 ==
LOC: ER 11:20 → EDBD 11:20 → EDUNIT# 11:20 → TELE 18:06 → ER 18:06 → TELE-EAST 20:04
PROVIDERS: ADMIT Nurse Practitioner Family; ATTEND Family Medicine
DX: K56.41 Fecal impaction (principal); E87.0 Hyperosmolality and hypernatremia; N17.9 Acute kidney failure, unspecified; R64 Cachexia; N39.0 Urinary tract infection, site not specified; E87.20 Acidosis, unspecified; K52.89 Other specified noninfective gastroenteritis and colitis; R62.7 Adult failure to thrive; E86.0 Dehydration; R62.50 Unspecified lack of expected normal physiological development in childhood; G40.909 Epilepsy, unspecified, not intractable, without status epilepticus; F79 Unspecified intellectual disabilities; E87.6 Hypokalemia; Z68.29 Body mass index [BMI] 29.0-29.9, adult; Z80.3 Family history of malignant neoplasm of breast; Z82.49 Family history of ischemic heart disease and other diseases of the circulatory system; Z74.01 Bed confinement status; Z79.899 Other long term (current) drug therapy
CPT/HCPCS: 36415; 71045; 74018; 74176; 80048; 80053; 85025; 87081; G0378

== ENCOUNTER 2024-09-19 14:19 | Inpatient (IN) | payer OTHER, MEDICAID ==
[~2024-09-19] VITALS: Ht 177.8 cm; Wt 57.7 kg
[~2024-09-19 14:19] MED LIST changes: -CIPR-173 PO; +LEVE250T18 PO; +OXCA600T3 PO; -PHEN100C PO; -POTA-220 PO
[2024-09-19 15:10] VITALS: PULSE 97; RESP 13; O2SAT 95
--- NOTE | 2024-09-19 16:37 | DVH ---
CHEST RADIOGRAPH Indication: gen weak Technique: Single frontal view of the chest was obtained COMPARISON: XY CHEST PORTABLE on DOS: 04/09/24, XY CHEST PORTABLE on DOS: 03/20/24, XY CHEST PORTABLE on DOS: 10/15/23, CXRP on DOS: 11/19/22, CHEST PORTABLE on DOS: 11/19/22 FINDINGS: Lines and Tubes: None Lungs: Clear Pleura: No effusion. No pneumothorax. Cardiomediastinal contours: Unremarkable Bones: Unremarkable IMPRESSION: 1. No acute disease.
[2024-09-19 16:53] LABS: Basophils # (auto) 0 10 ^3/uL (0-0.2); Basophils % (auto) 0.1 % (0.0-2.0); Eosinophils # (auto) 0.1 10 ^3/uL (0-0.8); Eosinophils % (auto) 0.9 % (0.0-7.0); Hematocrit 50.8 % (41.0-53.0); Hemoglobin 15.8 g/dL (13.5-17.5); Lymphocytes # (auto) 1.6 10 ^3/uL (0.4-5.4); Lymphocytes % (auto) 20.3 % (10.0-50.0); Mean Corpuscular Hemoglobin 29.9 pg (28.0-32.0); Mean Corpuscular Volume 96.2 fL (80.0-100.0); Monocytes # (auto) 0.5 10 ^3/uL (0-1.3); Monocytes % (auto) 6.8 % (0.0-12.0); Neutrophils # (auto) 5.8 10 ^3/uL (1.6-8.6); Neutrophils % (auto) 71.9 % (37.0-80.0); Platelet Count (auto) 140 10^3/uL (140-450); Red Blood Cells 5.28 10^6/uL (4.5-5.90); Red Cell Distribution Width 15.6 % (11.8-14.3); White Blood Cell 8.1 10^3/uL (4.4-10.8)
[2024-09-19] MEDS: SODIUM CHLORIDE 0.9% 1,000 ML IV ONE (17:11)
[2024-09-19 17:18] LABS: Alanine Aminotransferase 23 U/L (7-40); Albumin 4.7 g/dL (3.2-4.8); Anion Gap 12 (5-15); Aspartate Aminotransferase 19 U/L (13-40); BUN/Creatinine Ratio 23.9 (10.0-20.0); Calcium 10.1 mg/dL (8.7-10.4); Carbon Dioxide 26 mmol/L (20-31)
[2024-09-19 17:19] LABS: Bilirubin, Total 0.3 mg/dL (0.2-1.0); Total Protein 7.8 g/dL (5.7-8.2)
[2024-09-19 17:21] LABS: Alkaline Phosphatase 156 U/L (46-116); Blood Urea Nitrogen 39 mg/dL (9-23); Chloride 138 mmol/L (98-107); Glucose 113 mg/dL (74-106)
[2024-09-19 17:24] LABS: Sodium 176 mmol/L (136-145)
--- NOTE | 2024-09-19 17:36 | ED.PDOC ---
History of Present Illness HPI Comments 63-year-old male brought in by EMS from home for evaluation of generalized weakness and poor oral intake. Patient's mother who is at bedside states the patient has been having decreased p.o. food and fluid intake over the past week, no bowel movement for the past week despite being given laxatives, prune juice and stool softeners, and has been more weak than normal. Patient is mostly bed- bound, however is usually able to stand with assistance. Patient's mother states 3 people were required to remove him from the shower today, which is not normal for the patient. Patient is nonverbal at baseline, so history is obtained from the patient's mother. She states he has not had a fever or vomiting. Chief Complaint: General Weakness Time Seen by MD: 14:33 Primary Care Provider: [facility] Allergies: Coded Allergies: Gelatin (Verified Allergy, Severe, 04/12/24) "EKG pads"; rash and itching Home Meds Active Scripts Oxcarbazepine (Trileptal) 600 Mg Tab, 0.5 TAB PO BID, #90 TAB 1 Refill Prov:PRINCESS MAYA MD 04/14/24 Midodrine Hcl (Midodrine Hcl) 10 Mg Tab, 10 MG PO DAILY, #30 TAB Prov:PRINCESS MAYA MD 11/23/22 Reported Medications Levetiracetam (Keppra) 250 Mg Tab, 250 MG PO BID for 30 Days, MG 04/09/24 Information Source: Relative (Mother) Mode of Arrival: EMS Past Medical History PAST MEDICAL HISTORY: Seizures Surgical History: Hernia Repair Surgical History (Other): Nephrectomy Family History Family History: Reviewed,noncontributory to illness Social History Smoker: Non-Smoker Alcohol: Denies ETOH Use Drugs: Denies Drug Use Lives In: Home Unable to Obtain due to: Other (Baseline nonverbal status) Physical Exam General Appearance: No Apparent Distress, Thin HEENT: Other (Pupils symmetric, dry mucous membranes) Neck: Full Range of Motion, Non-Tender, Normal Inspection Respiratory: Lungs Clear, No Accessory Muscle Use, No Respiratory Distress, Normal Breath Sounds Cardiovascular: No Edema, No JVD, Regular Rate/Rhythm Breast Exam: Deferred Gastrointestinal: Non Tender, Soft Genitalia: Deferred Pelvic: Deferred Rectal: Deferred Extremities: Other (Extremity contractures. No edema or tenderness.) Neurologic: Alert (Nonverbal. Does not follow commands. Moves all extremities. Light touch sensation grossly intact.) Cerebellar Function: NOT DONE Reflexes: NOT DONE Skin: Dry, Warm, Other (Scattered erythematous/excoriated rash on extremities) Lymphatic: NOT DONE Was a procedure done? Was a procedure done?: No Differential Dx Considerations may include: Bowel obstruction, fecal impaction, constipation, ischemic bowel, dehydration/hypovolemia, electrolyte imbalance, infection such as UTI or pneumonia, among others X-Ray, Labs, Meds, VS Vital Signs Date Time Temp Pulse Resp B/P (MAP) Pulse Ox O2 Delivery O2 Flow Rate FiO2 09/19/24 19:25 96 Room Air* 0 21 09/19/24 19:20 98.6 98 16 129/81 (97) 97 98.6 09/19/24 19:00 97 15 117/76 (90) 95 09/19/24 17:41 91 09/19/24 17:00 97 16 141/84 (103) 93 09/19/24 15:10 97 13 95 Room Air* 0 21 09/19/24 15:06 98.9 92 16 132/89 (103) 96 09/19/24 15:00 97 17 123/91 (102) 97 Lab Test 09/19/24 19:35 09/19/24 19:14 09/19/24 18:03 09/19/24 17:29 Range/Units Influenza Type A Antigen Negative Negative Influenza Type B Antigen Negative Negative SARS-CoV-2 Antigen (Rapid) Negative NEGATIVE Troponin I High Sensitivity 7 8 </=54 ng/L Urine Color Yellow Yellow Urine Clarity Turbid H Clear Urine pH 5.5 5.0-9.0 Urine Specific [place] 1.029 1.001-1.035 Urine Protein 1+ H Negative Urine Ketones Negative Negative Urine Blood Negative Negative /uL Urine Nitrite 2+ H Negative Urine Bilirubin Negative Negative Urine Urobilinogen Normal Negative mg/dL Urine Leukocyte Esterase 2+ Negative /uL Urine RBC 3 0 - 3 /hpf Urine WBC 25 0 - 3 /hpf Urine Squamous Epithelial Cells Few <5 /hpf Urine Bacteria Many H None Seen /hpf Urine Hyaline Casts Few 0 - 2 /lpf Urine Mucus Few None Seen Urine Glucose Normal Normal mg/dL Test 09/19/24 16:30 Range/Units White Blood Count 8.1 4.4-10.8 10^3/uL Red Blood Count 5.28 4.5-5.90 10^6/uL Hemoglobin 15.8 13.5-17.5 g/dL Hematocrit 50.8 41.0-53.0 % Mean Corpuscular Volume 96.2 80.0-100.0 fL Mean Corpuscular Hemoglobin 29.9 28.0-32.0 pg Mean Corpuscular Hemoglobin Concent 31.0 L 32.0-36.0 g/dL Red Cell Distribution Width 15.6 H 11.8-14.3 % Platelet Count 140 140-450 10^3/uL Mean Platelet Volume 12.1 H 6.9-10.8 fL Neutrophils (%) (Auto) 71.9 37.0-80.0 % Lymphocytes (%) (Auto) 20.3 10.0-50.0 % Monocytes (%) (Auto) 6.8 0.0-12.0 % Eosinophils (%) (Auto) 0.9 0.0-7.0 % Basophils (%) (Auto) 0.1 0.0-2.0 % Neutrophils # (Auto) 5.8 1.6-8.6 10 ^3/uL Lymphocytes # (Auto) 1.6 0.4-5.4 10 ^3/uL Monocytes # (Auto) 0.5 0-1.3 10 ^3/uL Eosinophils # (Auto) 0.1 0-0.8 10 ^3/uL Basophils # (Auto) 0 0-0.2 10 ^3/uL Nucleated Red Blood Cells 0.0 % Sodium Level 176 *H 136-145 mmol/L Potassium Level 4.0 3.5-5.1 mmol/L Chloride Level 138 H 98-107 mmol/L Carbon Dioxide Level 26 20-31 mmol/L Anion Gap 12 5-15 Blood Urea Nitrogen 39 H 9-23 mg/dL Creatinine 1.63 H 0.700-1.30 mg/dL Glomerular Filtration Rate Calc 47 >90 mL/min BUN/Creatinine Ratio 23.9 H 10.0-20.0 Serum Glucose 113 H 74-106 mg/dL Lactic Acid Level 1.5 0.4-2.0 mmol/L Calcium Level 10.1 8.7-10.4 mg/dL Total Bilirubin 0.3 0.2-1.0 mg/dL Aspartate Amino Transferase (AST) 19 13-40 U/L Alanine Aminotransferase (ALT) 23 7-40 U/L Alkaline Phosphatase 156 H 46-116 U/L Troponin I High Sensitivity 8 </=54 ng/L B-Type Natriuretic Peptide 14.08 0-100 pg/mL Total Protein 7.8 5.7-8.2 g/dL Albumin 4.7 3.2-4.8 g/dL Current Medications Medications (Trade) Dose Ordered Sig/Efrem Route Start Time Stop Time Status Last Admin Sodium Chloride 1,000 ml @ 1,000 mls/hr Q1H ONCE IV 09/19/24 16:00 09/19/24 16:59 DC 09/19/24 17:11 PROCEDURE(s): CXRP - CHEST PORTABLE REASON: gen weak ORDER NUMBER(s): [id number], ACCESSION NUMBER(s): [id number] CHEST RADIOGRAPH Indication: gen weak Technique: Single frontal view of the chest was obtained COMPARISON: XY CHEST PORTABLE on DOS: 04/09/24, XY CHEST PORTABLE on DOS: 03/20/24, XY CHEST PORTABLE on DOS: 10/15/23, CXRP on DOS: 11/19/22, CHEST PORTABLE on DOS: 11/19/22 FINDINGS: Lines and Tubes: None Lungs: Clear Pleura: No effusion. No pneumothorax. Cardiomediastinal contours: Unremarkable Bones: Unremarkable IMPRESSION: 1. No acute disease. EDURE(s): ABPL - CT AB PEL WO CON-NO ORAL OR IV REASON: no bm x 1 wk r/o obstruction ORDER NUMBER(s): [id number], ACCESSION NUMBER(s): [id number] CT CT AB PEL WO CON-NO ORAL OR IV INDICATION: no bm x 1 wk r/o obstruction EXAM DATE: 09/19/2024 06:45 PM COMPARISON: CT CT AB PEL WO CON-NO ORAL OR IV on DOS: 04/09/24, ECIDC on DOS: 11/18/22, CT ABD PELVIS WO CONTRAST on DOS: 11/16/22 RADIATION DOSE: CTDIvol: 5.72 mGy, DLP: 333.27 mGy*cm PROCEDURE: Helical CT images were obtained of the abdomen and pelvis without IV contrast Sagittal and coronal reconstructions are provided. ORAL CONTRAST: None. ADDITIONAL IMAGES / REFORMATS: None All CT scans at this medical facility are performed using dose modulation techniques as appropriate to a performed exam including the following: Automated exposure control was utilized; adjustment of the MA and/or KV according to patient size; and use of iterative reconstruction technique. FINDINGS: LUNG BASE: Normal. LIVER: Scattered hypodense hepatic cystic lesions, similar to prior. GALLBLADDER AND BILIARY TREE: No calcified gallstones. Normal caliber wall. No intra- or extrahepatic biliary ductal dilation. PANCREAS: Unremarkable. SPLEEN: Normal. BOWEL: No small bowel dilation seen. Similar large fecal ball in the rectum. Appendix appears normal. ADRENALS: Normal. KIDNEYS AND URETER: Absent left kidney. BLADDER: Decompressed with a Lloyd. REPRODUCTIVE ORGANS: Normal. LYMPH NODES:No lymphadenopathy. PERITONEUM: No ascites or free air. No other fluid collection. VESSELS: Scattered atherosclerotic calcifications are noted. RETROPERITONEUM: Normal. ABDOMINAL WALL: Normal. BONES: Scattered osseous degenerative changes are noted. IMPRESSION: Similar large fecal ball in the rectum. Prominent fecal burden seen with cons tipation. X-Ray, Labs, Meds, VS Comment 63-year-old male with a history of developmental delay and seizures, admitted here in the past with stercoral colitis and hypernatremia brought in by EMS from home for evaluation of decreased p.o. intake and no bowel movement for the past week Vitals unremarkable Exam remarkable for dry mucous membranes and a scattered erythematous/excoriated rash on extremities Rhythm strip independently interpreted by me: Sinus rhythm, rate 92, no ectopy. Chest x-ray unremarkable CT abdomen and pelvis results pending CBC unremarkable, CMP remarkable for sodium 176, chloride 138, BUN 39, creatinine 1.63 BNP, troponin and lactate normal UA pending Patient treated with the following in the ED: 1 L 0.9 normal saline IV bolus. Plan is to admit the patient for IV hydration, electrolyte correction and disimpaction. Time of 1ST Reevaluation: 17:43 Reevaluation 1ST: Unchanged Patient Education/Counseling: Pt Unresponsive Family Education/Counseling: Diagnosis, Treatment Departure 1 Departure Time of Disposition: 17:43 Impression: Primary Impression: Dehydration with hypernatremia Additional Impressions: Acute kidney injury Fecal impaction Disposition: ADMITTED INPATIENT Admit to: [facility] Condition: Guarded Critical Care Note Critical Care Time?: No Stability Stability form required: No Heart Score Heart Score: Heart Score Response (Comments) Value History N/A 0 EKG N/A 0 Age N/A 0 Risk Factors N/A 0 Troponin N/A 0 Total 0 SACHI JURADO MD Sep 19, 2024 17:36
--- NOTE | 2024-09-19 18:55 | ECG ---
[facility] Test Date: 2024-09-19 Test Time: 17:41:57 Pat Name: JULIO DING Department: ER Room: 0283 Gender: M Production Support Analyst: MERARI : 1960 Requested By: SACHI STYLES Order Number: [id number] Reading MD: Michael Dove Measurements Intervals [place] Rate: 91 P: -19 NM: 119 QRS: 21 QRSD: 87 T: 208 QT: 334 QTc: 411 Interpretive Statements Sinus rhythm Atrial premature complexes Borderline short NM interval Abnormal R-wave progression, early transition Borderline repolarization abnormality Electronically Signed On 09-25-2024 12:23:39 PST by Michael Dove Please click the below link to view image of tracing.
[2024-09-19 18:58] LABS: Urine Bacteria MANY /hpf (None Seen); Urine Blood Negative /uL (Negative); Urine Clarity Turbid (Clear); Urine Color Yellow (Yellow); Urine Hyaline Cast FEW /lpf (0 - 2); Urine Mucus FEW (None Seen); Urine Protein, UAD 1+ (Negative); Urine Specific Gravity 1.029 (1.001-1.035); Urine Urobilinogen Normal (Negative); Urine WBC 25 /hpf (0 - 3); Urine pH 5.5 (5.0-9.0)
--- NOTE | 2024-09-19 19:24 | DVH ---
CT CT AB PEL WO CON-NO ORAL OR IV INDICATION: no bm x 1 wk r/o obstruction EXAM DATE: 09/19/2024 06:45 PM COMPARISON: CT CT AB PEL WO CON-NO ORAL OR IV on DOS: 04/09/24, ECIDC on DOS: 11/18/22, CT ABD PELVIS WO CONTRAST on DOS: 11/16/22 RADIATION DOSE: CTDIvol: 5.72 mGy, DLP: 333.27 mGy*cm PROCEDURE: Helical CT images were obtained of the abdomen and pelvis without IV contrast Sagittal an d coronal reconstructions are provided. ORAL CONTRAST: None. ADDITIONAL IMAGES / REFORMATS: None All CT scans at this medical facility are performed using dose modulation techniques as appropriate t o a performed exam including the following: Automated exposure control was utilized; adjustment of th e MA and/or KV according to patient size; and use of iterative reconstruction technique. FINDINGS: LUNG BASE: Normal. LIVER: Scattered hypodense hepatic cystic lesions, similar to prior. GALLBLADDER AND BILIARY TREE: No calcified gallstones. Normal caliber wall. No intra- or extrahepatic biliary ductal dilation. PANCREAS: Unremarkable. SPLEEN: Normal. BOWEL: No small bowel dilation seen. Similar large fecal ball in the rectum. Appendix appears normal. ADRENALS: Normal. KIDNEYS AND URETER: Absent left kidney. BLADDER: Decompressed with a Lloyd. REPRODUCTIVE ORGANS: Normal. LYMPH NODES:No lymphadenopathy. PERITONEUM: No ascites or free air. No other fluid collection. VESSELS: Scattered atherosclerotic calcifications are noted. RETROPERITONEUM: Normal. ABDOMINAL WALL: Normal. BONES: Scattered osseous degenerative changes are noted. IMPRESSION: Similar large fecal ball in the rectum. Prominent fecal burden seen with constipation.
[2024-09-19 19:25] VITALS: O2SAT 96
[2024-09-19 19:36] LABS: COVID19 ANTIGEN SOFIA FIA NEGATIVE (NEGATIVE); Rapid Influenza A Negative (Negative); Rapid Influenza B Negative (Negative)
[2024-09-19] MEDS ORDERED: NITROGLYCERIN 0.4 MG SL TAB SL PRN (21:00)
[2024-09-19] MEDS: D5W 5% 1,000 ML IV SCH (21:00)
[2024-09-19] MEDS ORDERED: ACETAMINOPHEN 325 MG TAB PO PRN (21:00)
[2024-09-19] MEDS ORDERED: ONDANSETRON HCL 4 MG/2 ML VIAL IV PRN (21:00)
[2024-09-19] MEDS ORDERED: HYDROcodone-ACET 5/325MG TAB PO PRN (21:00)
[2024-09-19] MEDS ORDERED: MORPHINE SULFATE INJ 2 MG/ml SYRG IV PRN (21:00)
--- NOTE | 2024-09-19 21:09 | DVHHP2 ---
History of Present Illness Reason for Visit: Generalized weakness History of Present Illness The patient is a 63-year-old male nonverbal with past medical history of seizure who presented to [facility] ED for evaluation of generalized weakness. Patient's mother who is at bedside states the patient has been having decreased oral food and fluid intake over the past week, no bowel movement for the past week despite being given laxatives, prune juice stool softeners, and has been more weak than normal. Patient is mostly bed-bound, however is usually able to stand with assistance. Patient's mother states 3 people were required to remove him from the shower today, which is not normal for the patient. Patient was seen and evaluated in the ED, laboratory data shows WBC 8.1, platelets 140, sodium 176, potassium 4.0, BUN 39, creatinine 1.63, glucose 113, troponin 8, BNP 14.08, blood pressure 129/81, heart rate 98, temperature 98.6 F, O2 saturation 96% on room air. Abdomen/pelvis CT revealing small large fecal ball in the rectum, prominent fecal burden seen with constipation. On my assessment, mother at bedside, no diaphoresis, no palpitation, no shortness of breath, no nausea, no vomiting, no fever, no chills. Patient was admitted for further evaluation and medical management. Past Medical History Seizures Past Surgical History Hernia Repair, Nephrectomy Family History Reviewed, noncontributory to the management of this case. Past Social History The patient lives at home, denies smoking, alcohol or illicit drugs abuse. Review of Systems Constitutional: Yes: Weakness; No: Fever, Chills, Sweats, Malaise, Other Eyes: No: Pain, Vision change, Conjunctivae inflammation, Eyelid inflammation, Other, Redness ENT: No: Ear pain, Ear discharge, Nose pain, Nose discharge, Nose congestion, Mouth pain, Mouth swelling, Throat pain, Throat swelling, Other Respiratory: No: Cough, Dry, Shortness of breath, SOB with excertion, Wheezing, Hemoptysis, Pleuritic Pain, Sputum, Wheezing, Other Cardiovascular: No: Chest Pain, Palpitations, Orthopnea, Paroxysmal Noc. Dyspnea, Edema, Lt Headedness, Other Gastrointestinal: No: Nausea, Vomiting, Abdominal Pain, Diarrhea, Constipation, Melena, Hematochezia, Other Genitourinary: No Dysuria, No Frequency, No Incontinence, No Hematuria, No Retention, No Other Musculoskeletal: No: other, neck pain, shoulder pain, arm pain, back pain, hand pain, leg pain, foot pain Skin: No: Rash, Lesions, Jaundice, Bruising, Other Neurological: Weakness, Other (Altered mental status); No: Numbness, Incoordination, Change in speech, Confusion, Seizures Allergies: Coded Allergies: Gelatin (Verified Allergy, Severe, 04/12/24) "EKG pads"; rash and itching Exam Vital Signs Vital Signs Date Time Temp Pulse Resp B/P (MAP) Pulse Ox O2 Delivery O2 Flow Rate FiO2 09/19/24 19:25 96 Room Air* 0 21 09/19/24 19:20 98.6 98 16 129/81 (97) 98.6 General Appearance: Alert, Cooperative, No acute distress, Other (Oriented x2) HEENT: Atraumatic, PERRLA, EOMI, Mucous membr. moist/pink Respiratory: Clear to auscultation, Normal air movement Cardiovascular: Regular rate, Normal S1, Normal S2, No murmurs Abdominal: Normal bowel sounds, Soft, No tenderness, No hepatospenomegaly, No masses Extremities: No clubbing, No cyanosis, No edema, Normal pulses, No tenderness/swelling Skin: No rashes, No breakdown, No significant lesion Neuro: Normal tone, Sensation intact, Cranial nerves 3-12 NL, Reflexes 2+, Other (Generalized weakness) Psych/Mental Status: Mood NL, Other (Altered mental status) Labs/Xrays Labs Test 09/19/24 19:35 09/19/24 19:14 09/19/24 18:03 09/19/24 16:30 Range/Units Influenza Type A Antigen Negative Negative Influenza Type B Antigen Negative Negative SARS-CoV-2 Antigen (Rapid) Negative NEGATIVE Troponin I High Sensitivity 7 </=54 ng/L Urine Color Yellow Yellow Urine Clarity Turbid H Clear Urine pH 5.5 5.0-9.0 Urine Specific [place] 1.029 1.001-1.035 Urine Protein 1+ H Negative Urine Ketones Negative Negative Urine Blood Negative Negative /uL Urine Nitrite 2+ H Negative Urine Bilirubin Negative Negative Urine Urobilinogen Normal Negative mg/dL Urine Leukocyte Esterase 2+ Negative /uL Urine RBC 3 0 - 3 /hpf Urine WBC 25 0 - 3 /hpf Urine Squamous Epithelial Cells Few <5 /hpf Urine Bacteria Many H None Seen /hpf Urine Hyaline Casts Few 0 - 2 /lpf Urine Mucus Few None Seen Urine Glucose Normal Normal mg/dL White Blood Count 8.1 4.4-10.8 10^3/uL Red Blood Count 5.28 4.5-5.90 10^6/uL Hemoglobin 15.8 13.5-17.5 g/dL Hematocrit 50.8 41.0-53.0 % Mean Corpuscular Volume 96.2 80.0-100.0 fL Mean Corpuscular Hemoglobin 29.9 28.0-32.0 pg Mean Corpuscular Hemoglobin Concent 31.0 L 32.0-36.0 g/dL Red Cell Distribution Width 15.6 H 11.8-14.3 % Platelet Count 140 140-450 10^3/uL Mean Platelet Volume 12.1 H 6.9-10.8 fL Neutrophils (%) (Auto) 71.9 37.0-80.0 % Lymphocytes (%) (Auto) 20.3 10.0-50.0 % Monocytes (%) (Auto) 6.8 0.0-12.0 % Eosinophils (%) (Auto) 0.9 0.0-7.0 % Basophils (%) (Auto) 0.1 0.0-2.0 % Neutrophils # (Auto) 5.8 1.6-8.6 10 ^3/uL Lymphocytes # (Auto) 1.6 0.4-5.4 10 ^3/uL Monocytes # (Auto) 0.5 0-1.3 10 ^3/uL Eosinophils # (Auto) 0.1 0-0.8 10 ^3/uL Basophils # (Auto) 0 0-0.2 10 ^3/uL Nucleated Red Blood Cells 0.0 % Sodium Level 176 *H 136-145 mmol/L Potassium Level 4.0 3.5-5.1 mmol/L Chloride Level 138 H 98-107 mmol/L Carbon Dioxide Level 26 20-31 mmol/L Anion Gap 12 5-15 Blood Urea Nitrogen 39 H 9-23 mg/dL Creatinine 1.63 H 0.700-1.30 mg/dL Glomerular Filtration Rate Calc 47 >90 mL/min BUN/Creatinine Ratio 23.9 H 10.0-20.0 Serum Glucose 113 H 74-106 mg/dL Lactic Acid Level 1.5 0.4-2.0 mmol/L Calcium Level 10.1 8.7-10.4 mg/dL Total Bilirubin 0.3 0.2-1.0 mg/dL Aspartate Amino Transferase (AST) 19 13-40 U/L Alanine Aminotransferase (ALT) 23 7-40 U/L Alkaline Phosphatase 156 H 46-116 U/L B-Type Natriuretic Peptide 14.08 0-100 pg/mL Total Protein 7.8 5.7-8.2 g/dL Albumin 4.7 3.2-4.8 g/dL PATIENT: JULIO DING ACCT: [id number] UNIT: [id number] : 1960 LOC: ER ROOM / BED: / AGE / SEX: 63 / M ADM STATUS: REG ER SERVICE [id number] ORDERING PHYSICIAN: SACHI JURADO MD PROCEDURE(s): ABPL - CT AB PEL WO CON-NO ORAL OR IV REASON: no bm x 1 wk r/o obstruction ORDER NUMBER(s): [id number], ACCESSION NUMBER(s): [id number] CT CT AB PEL WO CON-NO ORAL OR IV INDICATION: no bm x 1 wk r/o obstruction EXAM DATE: 09/19/2024 06:45 PM COMPARISON: CT CT AB PEL WO CON-NO ORAL OR IV on DOS: 04/09/24, ECIDC on DOS: 11/18/22, CT ABD PELVIS WO CONTRAST on DOS: 11/16/22 RADIATION DOSE: CTDIvol: 5.72 mGy, DLP: 333.27 mGy*cm PROCEDURE: Helical CT images were obtained of the abdomen and pelvis without IV contrast Sagittal and coronal reconstructions are provided. ORAL CONTRAST: None. ADDITIONAL IMAGES / REFORMATS: None All CT scans at this medical facility are performed using dose modulation techniques as appropriate to a performed exam including the following: Automated exposure control was utilized; adjustment of the MA and/or KV according to patient size; and use of iterative reconstruction technique. FINDINGS: LUNG BASE: Normal. LIVER: Scattered hypodense hepatic cystic lesions, similar to prior. GALLBLADDER AND BILIARY TREE: No calcified gallstones. Normal caliber wall. No intra- or extrahepatic biliary ductal dilation. PANCREAS: Unremarkable. SPLEEN: Normal. BOWEL: No small bowel dilation seen. Similar large fecal ball in the rectum. Appendix appears normal. ADRENALS: Normal. KIDNEYS AND URETER: Absent left kidney. BLADDER: Decompressed with a Lloyd. REPRODUCTIVE ORGANS: Normal. LYMPH NODES:No lymphadenopathy. PERITONEUM: No ascites or free air. No other fluid collection. VESSELS: Scattered atherosclerotic calcifications are noted. RETROPERITONEUM: Normal. ABDOMINAL WALL: Normal. BONES: Scattered osseous degenerative changes are noted. IMPRESSION: Similar large fecal ball in the rectum. Prominent fecal burden seen with constipation. ORDERING PHYSICIAN: SACHI JURADO MD PROCEDURE(s): CXRP - CHEST PORTABLE REASON: gen weak ORDER NUMBER(s): [id number], ACCESSION NUMBER(s): [id number] CHEST RADIOGRAPH Indication: gen weak Technique: Single frontal view of the chest was obtained COMPARISON: XY CHEST PORTABLE on DOS: 04/09/24, XY CHEST PORTABLE on DOS: 03/20/24, XY CHEST PORTABLE on DOS: 10/15/23, CXRP on DOS: 11/19/22, CHEST PORTABLE on DOS: 11/19/22 FINDINGS: Lines and Tubes: None Lungs: Clear Pleura: No effusion. No pneumothorax. Cardiomediastinal contours: Unremarkable Bones: Unremarkable IMPRESSION: 1. No acute disease. Assessment/Plan Assessment/Plan Dehydration with hypernatremia Acute kidney injury Fecal impaction Generalized weakness Plan 1. Admit to telemetry unit 2. Breathing treatment 3. Pain control management 4. Management of fluids and electrolytes 5. Consultation for hospitalist/nephrology 6. Diagnostic tests abdomen/pelvis CT 7. DVT prophylaxis-on SCDs 8. Repeat labs CBC, CMP in a.m. 9. Continue with current medical management 10. Treatment plan discussed with patient and RN. Patient verbalized understand ing. Plan discussed with: Patient, Other (RN) Problem List: (1) Dehydration with hypernatremia (2) Acute kidney injury (3) Fecal impaction (4) Generalized weakness Date of Service: Sep 19, 2024 Billing Provider: AL WRIGHT DNP Common Visit Codes: [id number] INP/OBS CARE (HIGH) AL WRIGHT DNP Sep 19, 2024 21:09
[2024-09-19] MEDS: levETIRAcetam 500 mg/100ml 100 ML IV SCH (22:00)
[2024-09-20 01:58] LABS: Anion Gap 11 (5-15); Calcium 9.7 mg/dL (8.7-10.4); Carbon Dioxide 30 mmol/L (20-31)
[2024-09-20 01:59] LABS: Chloride 137 mmol/L (98-107)
[2024-09-20 02:01] LABS: Sodium 178 mmol/L (136-145)
[2024-09-20 02:03] LABS: BUN/Creatinine Ratio 29.2 (10.0-20.0)
[2024-09-20 02:49] LABS: Blood Urea Nitrogen 45 mg/dL (9-23); Glucose 171 mg/dL (74-106)
[2024-09-20] MEDS: D5W 5% 1,000 ML IV SCH (04:00)
[2024-09-20 06:16] LABS: Basophils # (auto) 0 10 ^3/uL (0-0.2); Basophils % (auto) 0.2 % (0.0-2.0); Eosinophils # (auto) 0.1 10 ^3/uL (0-0.8); Eosinophils % (auto) 1.1 % (0.0-7.0); Hematocrit 48.9 % (41.0-53.0); Hemoglobin 15.4 g/dL (13.5-17.5); Lymphocytes # (auto) 1.5 10 ^3/uL (0.4-5.4); Lymphocytes % (auto) 12.7 % (10.0-50.0); Mean Corpuscular Hemoglobin 29.9 pg (28.0-32.0); Mean Corpuscular Hgb Conc. 31.4 g/dL (32.0-36.0); Mean Corpuscular Volume 95.2 fL (80.0-100.0); Monocytes # (auto) 0.8 10 ^3/uL (0-1.3); Monocytes % (auto) 6.9 % (0.0-12.0); Neutrophils # (auto) 9.6 10 ^3/uL (1.6-8.6); Neutrophils % (auto) 79.1 % (37.0-80.0); Nucleated Red Blood Cells % 0.3 %; Platelet Count (auto) 137 10^3/uL (140-450); Red Blood Cells 5.14 10^6/uL (4.5-5.90); Red Cell Distribution Width 15.5 % (11.8-14.3); White Blood Cell 12.1 10^3/uL (4.4-10.8)
[2024-09-20 06:29] LABS: Alanine Aminotransferase 22 U/L (7-40); Albumin 4.3 g/dL (3.2-4.8); Anion Gap 11 (5-15); Aspartate Aminotransferase 17 U/L (13-40); BUN/Creatinine Ratio 28.6 (10.0-20.0); Calcium 9.8 mg/dL (8.7-10.4); Carbon Dioxide 29 mmol/L (20-31); Potassium 3.6 mmol/L (3.5-5.1)
[2024-09-20 06:30] LABS: Bilirubin, Total 0.4 mg/dL (0.2-1.0); Total Protein 7.4 g/dL (5.7-8.2)
[2024-09-20 06:34] LABS: Alkaline Phosphatase 148 U/L (46-116); Blood Urea Nitrogen 40 mg/dL (9-23); Chloride 132 mmol/L (98-107); Glucose 133 mg/dL (74-106); Sodium 172 mmol/L (136-145)
[2024-09-20] MEDS: DOCUSATE SOD 100 MG CAP PO PRN (13:08)
--- NOTE | 2024-09-20 17:47 | DVHPN2 ---
Subjective Assuming the care of the patient from today onwards who was under the care of the hospitalist team detailed sign out obtained. Plan of care discussed with the bedside RN as well as mom. Patient's mom told me that patient has is not eating or drinking for last one week. Reviewed: Care Plan Changes from previous H/P or p: No Changes Eyes: No Pain, No Vision change, No Conjunctivae inflammation, No Eyelid inflammation, No Other, No Redness ENT: No Ear pain, No Ear discharge, No Nose pain, No Nose discharge, No Nose congestion, No Mouth pain, No Mouth swelling, No Throat pain, No Throat swelling, No Other Cardiovascular: No Chest Pain, No Palpitations, No Orthopnea, No Paroxysmal Noc. Dyspnea, No Edema, No Lt Headedness, No Other Respiratory: No Cough, No Dry, No Shortness of breath, No SOB with excertion, No Wheezing, No Hemoptysis, No Pleuritic Pain, No Sputum, No Other Gastrointestinal: No Nausea, No Vomiting, No Abdominal Pain, No Diarrhea, No Constipation, No Melena, No Hematochezia, No Other Genitourinary: No Dysuria, No Frequency, No Incontinence, No Hematuria, No Retention, No Other Musculoskeletal: No other, No neck pain, No shoulder pain, No arm pain, No back pain, No hand pain, No leg pain, No foot pain Skin: No Rash, No Lesions, No Jaundice, No Bruising, No Other Objective Vitals Vital Signs Date Time Temp Pulse Resp B/P (MAP) Pulse Ox O2 Delivery O2 Flow Rate FiO2 09/20/24 16:00 68 14 114/77 (89) 09/20/24 12:01 96 09/20/24 08:52 Room Air* 0 21 09/20/24 08:00 98.5 98.5 Exam HEENT pupils are reactive Neck is supple CV is S1-S2 regular rate and rhythm Respiratory bilateral clear GI positive bowel sound Extremity no edema [employer] patient moving extremities spontaneously Medications Current Medications Medications Dose Ordered Sig/Efrem Route Start Time Stop Time Status Last Admin Dose Admin Levetiracetam 100 ml @ 400 mls/hr BID IV 09/19/24 22:00 Acetaminophen/ Hydrocodone Bitart 1 tab Q4HP PRN PO 09/19/24 21:00 Ondansetron HCl 4 mg Q4HP PRN IV 09/19/24 21:00 Docusate Sodium 100 mg BIDPRN PRN PO 09/19/24 21:00 09/20/24 13:08 100 MG Acetaminophen 650 mg Q6HP PRN PO 09/19/24 21:00 Nitroglycerin 0.4 mg Q5MINP PRN SL 09/19/24 21:00 Morphine Sulfate 2 mg Q30M PRN IV 09/19/24 21:00 Dextrose 1,000 ml @ 125 mls/hr Q8H IV 09/20/24 04:00 09/20/24 12:05 125 MLS/HR Laboratory Results Laboratory Tests 09/20/24 05:40 Chemistry Test 09/20/24 01:30 09/20/24 05:40 Calcium Level 9.7 mg/dL (8.7-10.4) 9.8 mg/dL (8.7-10.4) Albumin 4.3 g/dL (3.2-4.8) Total Protein 7.4 g/dL (5.7-8.2) LFT Test 09/20/24 05:40 Alanine Aminotransferase (ALT) 22 U/L (7-40) Alkaline Phosphatase 148 U/L (46-116) H Aspartate Amino Transferase (AST) 17 U/L (13-40) Total Bilirubin 0.4 mg/dL (0.2-1.0) Urinalysis Test 09/19/24 18:03 Urine Color Yellow (Yellow) Urine Clarity Turbid (Clear) H Urine pH 5.5 (5.0-9.0) Urine Specific [place] 1.029 (1.001-1.035) Urine Protein 1+ (Negative) H Urine Ketones Negative (Negative) Urine Blood Negative /uL (Negative) Urine Nitrite 2+ (Negative) H Urine Bilirubin Negative (Negative) Urine Urobilinogen Normal mg/dL (Negative) Urine Leukocyte Esterase 2+ /uL (Negative) Urine RBC 3 /hpf (0 - 3) Urine WBC 25 /hpf (0 - 3) Urine Squamous Epithelial Cells Few /hpf (<5) Urine Bacteria Many /hpf (None Seen) H Urine Hyaline Casts Few /lpf (0 - 2) Urine Mucus Few (None Seen) Urine Glucose Normal mg/dL (Normal) Assessment/Plan Assessment/Plan 63-year-old male with a known history of developmental delay, seizure disorder who initially presented to the hospital by family member as he is not eating or drinking for last one week found to have 1. Severe hypernatremia suspect secondary to decreased fluid intake 2. Acute kidney injury suspected secondary to vasomotor nephropathy 3. Seizure disorder 4. Developmental delay -D5W IV fluids, nephrology consultation, BMP every 8 hours. Plan discussed with: Other My Orders Orders - FAMILIA GABRIEL MD Procedure Category Date Status Time Basic Metabolic Panel LAB 09/20/24 Transmitted 22:00 Basic Metabolic Panel LAB 09/21/24 Verified 06:00 Basic Metabolic Panel LAB 09/21/24 Verified 14:00 Basic Metabolic Panel LAB 09/21/24 Verified 22:00 Basic Metabolic Panel LAB 09/22/24 Verified 06:00 Basic Metabolic Panel LAB 09/22/24 Verified 14:00 Basic Metabolic Panel LAB 09/22/24 Verified 22:00 Problem List: (1) Acute hypernatremia (2) Failure to thrive (3) Dehydration (4) Generalized weakness (5) Acute kidney injury Date of Service: Sep 20, 2024 Billing Provider: FAMILIA GABRIEL MD Common Visit Codes: [id number] INP/OBS CARE(MOD) FAMILIA GABRIEL MD Sep 20, 2024 17:47
--- NOTE | 2024-09-20 17:54 | DVHINCON2 ---
Date of service: Sep 20, 2024 Referring Physician Rony Brownlee NP Reason for Consultation RHEA History of Present Illness Mr. Mondragon is a 63-year-old male with known history of seizure disorder who was brought by his family for weakness and altered mental status. Per chart documentation he is normally bedbound but he is able to cooperate and requires assistance with activities of daily living. His clinical course has been notable for treatment with hypotonic IV fluids for severe hypernatremia. His serum creatinine is also above his baseline values. he has been diagnosed with chronic constipation. Most of the history was obtained through the chart. Past Medical History seizure disorder Allergies: Coded Allergies: Gelatin (Verified Allergy, Severe, 04/12/24) "EKG pads"; rash and itching Levetiracetam (Verified Adverse Reaction, Intermediate, UNRESPONSIVE, 09/20/24) PTS MOTHER SAID WHENS SHE GAVE THE PT KEPPRA PO ONCE AT HOME THE PATIENT BECAME UNRESPONSIVE AND THEY HAD TO TAKE HIM TO THE ER IMMEDIATELY. Home Meds Active Scripts Oxcarbazepine (Trileptal) 600 Mg Tab, 0.5 TAB PO BID, #90 TAB 1 Refill Prov:PRINCESS MAYA MD 04/14/24 Midodrine Hcl (Midodrine Hcl) 10 Mg Tab, 10 MG PO DAILY, #30 TAB Prov:PRINCESS MAYA MD 11/23/22 Reported Medications Levetiracetam (Keppra) 250 Mg Tab, 250 MG PO BID for 30 Days, MG 04/09/24 Current Medications Current Medications Medications (Trade) Dose Ordered Sig/Efrem Route PRN Reason Start Time Stop Time Status Last Admin Levetiracetam 100 ml @ 400 mls/hr BID IV 09/19/24 22:00 Dextrose 1,000 ml @ 125 mls/hr Q8H IV 09/19/24 21:00 09/20/24 04:04 DC 09/19/24 21:00 Acetaminophen/ Hydrocodone Bitart ([place] 5/325MG Tab) 1 tab Q4HP PRN PO MODERATE PAIN (4-6 PAIN SCALE) 09/19/24 21:00 Ondansetron HCl (Zofran) 4 mg Q4HP PRN IV NAUSEA / VOMITING 09/19/24 21:00 Docusate Sodium (Colace Capsule) 100 mg BIDPRN PRN PO FOR CONSTIPATION 09/19/24 21:00 09/20/24 13:08 Acetaminophen (Tylenol Tablet) 650 mg Q6HP PRN PO PAIN SCALE 1-3 OR TEMP>100.4 09/19/24 21:00 Nitroglycerin (Ntrostat Sublingual) 0.4 mg Q5MINP PRN SL FOR CHEST PAIN 09/19/24 21:00 Morphine Sulfate 2 mg Q30M PRN IV FOR CHEST PAIN 09/19/24 21:00 Dextrose 1,000 ml @ 125 mls/hr Q8H IV 09/20/24 04:00 09/20/24 12:05 Family History: FH: alcohol abuse G8 BROTHER FH: breast cancer G8 SISTER FH: heart attack G8 MOTHER Hypercholesterolemia G8 MOTHER Hypertension G8 BROTHER Review of Systems unable to be obtained as patient is somnolent H&P Exam Vital Signs/I&O Vital Sign Date Time Temp Pulse Resp B/P (MAP) Pulse Ox O2 Delivery O2 Flow Rate FiO2 09/20/24 16:00 68 14 114/77 (89) 09/20/24 12:01 96 09/20/24 08:52 Room Air* 0 21 09/20/24 08:00 98.5 98.5 Physical Exam gen: cachectic heent: nc lungs: cta cvs: no rub abd: soft ext: no edema skin: no rash neuro: somnolent Labs/Diagnostic Data Labs/Diagnostic Data Laboratory Tests Test 09/20/24 05:40 09/20/24 01:30 09/19/24 19:35 09/19/24 19:14 Range/Units White Blood Count 12.1 #H 4.4-10.8 10^3/uL Red Blood Count 5.14 4.5-5.90 10^6/uL Hemoglobin 15.4 13.5-17.5 g/dL Hematocrit 48.9 41.0-53.0 % Mean Corpuscular Volume 95.2 80.0-100.0 fL Mean Corpuscular Hemoglobin 29.9 28.0-32.0 pg Mean Corpuscular Hemoglobin Concent 31.4 L 32.0-36.0 g/dL Red Cell Distribution Width 15.5 H 11.8-14.3 % Platelet Count 137 L 140-450 10^3/uL Mean Platelet Volume 11.9 H 6.9-10.8 fL Neutrophils (%) (Auto) 79.1 37.0-80.0 % Lymphocytes (%) (Auto) 12.7 10.0-50.0 % Monocytes (%) (Auto) 6.9 0.0-12.0 % Eosinophils (%) (Auto) 1.1 0.0-7.0 % Basophils (%) (Auto) 0.2 0.0-2.0 % Neutrophils # (Auto) 9.6 H 1.6-8.6 10 ^3/uL Lymphocytes # (Auto) 1.5 0.4-5.4 10 ^3/uL Monocytes # (Auto) 0.8 0-1.3 10 ^3/uL Eosinophils # (Auto) 0.1 0-0.8 10 ^3/uL Basophils # (Auto) 0 0-0.2 10 ^3/uL Nucleated Red Blood Cells 0.3 % Sodium Level 172 #*H 178 *H 136-145 mmol/L Potassium Level 3.6 4.0 3.5-5.1 mmol/L Chloride Level 132 H 137 H 98-107 mmol/L Carbon Dioxide Level 29 30 20-31 mmol/L Anion Gap 11 11 5-15 Blood Urea Nitrogen 40 H 45 H 9-23 mg/dL Creatinine 1.40 H 1.54 H 0.700-1.30 mg/dL Glomerular Filtration Rate Calc 56 50 >90 mL/min BUN/Creatinine Ratio 28.6 H 29.2 H 10.0-20.0 Serum Glucose 133 H 171 H 74-106 mg/dL Calcium Level 9.8 9.7 8.7-10.4 mg/dL Total Bilirubin 0.4 0.2-1.0 mg/dL Aspartate Amino Transferase (AST) 17 13-40 U/L Alanine Aminotransferase (ALT) 22 7-40 U/L Alkaline Phosphatase 148 H 46-116 U/L Total Protein 7.4 5.7-8.2 g/dL Albumin 4.3 3.2-4.8 g/dL Influenza Type A Antigen Negative Negative Influenza Type B Antigen Negative Negative SARS-CoV-2 Antigen (Rapid) Negative NEGATIVE Troponin I High Sensitivity 7 </=54 ng/L Test 09/19/24 18:03 09/19/24 17:29 09/19/24 16:30 Range/Units Urine Color Yellow Yellow Urine Clarity Turbid H Clear Urine pH 5.5 5.0-9.0 Urine Specific [place] 1.029 1.001-1.035 Urine Protein 1+ H Negative Urine Ketones Negative Negative Urine Blood Negative Negative /uL Urine Nitrite 2+ H Negative Urine Bilirubin Negative Negative Urine Urobilinogen Normal Negative mg/dL Urine Leukocyte Esterase 2+ Negative /uL Urine RBC 3 0 - 3 /hpf Urine WBC 25 0 - 3 /hpf Urine Squamous Epithelial Cells Few <5 /hpf Urine Bacteria Many H None Seen /hpf Urine Hyaline Casts Few 0 - 2 /lpf Urine Mucus Few None Seen Urine Glucose Normal Normal mg/dL Troponin I High Sensitivity 8 8 </=54 ng/L White Blood Count 8.1 4.4-10.8 10^3/uL Red Blood Count 5.28 4.5-5.90 10^6/uL Hemoglobin 15.8 13.5-17.5 g/dL Hematocrit 50.8 41.0-53.0 % Mean Corpuscular Volume 96.2 80.0-100.0 fL Mean Corpuscular Hemoglobin 29.9 28.0-32.0 pg Mean Corpuscular Hemoglobin Concent 31.0 L 32.0-36.0 g/dL Red Cell Distribution Width 15.6 H 11.8-14.3 % Platelet Count 140 140-450 10^3/uL Mean Platelet Volume 12.1 H 6.9-10.8 fL Neutrophils (%) (Auto) 71.9 37.0-80.0 % Lymphocytes (%) (Auto) 20.3 10.0-50.0 % Monocytes (%) (Auto) 6.8 0.0-12.0 % Eosinophils (%) (Auto) 0.9 0.0-7.0 % Basophils (%) (Auto) 0.1 0.0-2.0 % Neutrophils # (Auto) 5.8 1.6-8.6 10 ^3/uL Lymphocytes # (Auto) 1.6 0.4-5.4 10 ^3/uL Monocytes # (Auto) 0.5 0-1.3 10 ^3/uL Eosinophils # (Auto) 0.1 0-0.8 10 ^3/uL Basophils # (Auto) 0 0-0.2 10 ^3/uL Nucleated Red Blood Cells 0.0 % Sodium Level 176 *H 136-145 mmol/L Potassium Level 4.0 3.5-5.1 mmol/L Chloride Level 138 H 98-107 mmol/L Carbon Dioxide Level 26 20-31 mmol/L Anion Gap 12 5-15 Blood Urea Nitrogen 39 H 9-23 mg/dL Creatinine 1.63 H 0.700-1.30 mg/dL Glomerular Filtration Rate Calc 47 >90 mL/min BUN/Creatinine Ratio 23.9 H 10.0-20.0 Serum Glucose 113 H 74-106 mg/dL Lactic Acid Level 1.5 0.4-2.0 mmol/L Calcium Level 10.1 8.7-10.4 mg/dL Total Bilirubin 0.3 0.2-1.0 mg/dL Aspartate Amino Transferase (AST) 19 13-40 U/L Alanine Aminotransferase (ALT) 23 7-40 U/L Alkaline Phosphatase 156 H 46-116 U/L B-Type Natriuretic Peptide 14.08 0-100 pg/mL Total Protein 7.8 5.7-8.2 g/dL Albumin 4.7 3.2-4.8 g/dL Assessment IMP: 1) Hemodynamically mediated acute kidney injury, prerenal etiology 2) chronic hyponatremia - water deficit approximately 7-8 L 3) CKD II 4) Siezure disorder 5) chronic constipation REC: - May target a serum sodium in the high 160 range over the next 12 hours - Will hold current IV fluids with D5 pending repeat electrolyte panel - will continue to follow closely along with you. - thank you for the consultation. Plan discussed with: Other PIPER THRASHER MD Sep 20, 2024 17:54
[2024-09-20 22:26] VITALS: BP 108/72; PULSE 83; RESP 17; TEMP 97.6; O2SAT 98
[2024-09-20 23:43] VITALS: PULSE 89; O2SAT 97
[2024-09-21 00:29] LABS: Potassium 4.1 mmol/L (3.5-5.1)
[2024-09-21 00:30] LABS: Anion Gap 11 (5-15); Calcium 9.6 mg/dL (8.7-10.4); Carbon Dioxide 30 mmol/L (20-31)
[2024-09-21 00:35] LABS: BUN/Creatinine Ratio 30.2 (10.0-20.0); Glucose 100 mg/dL (74-106)
[2024-09-21 00:40] LABS: Blood Urea Nitrogen 35 mg/dL (9-23); Chloride 131 mmol/L (98-107); Sodium 172 mmol/L (136-145)
[2024-09-21] MEDS: D5W 5% 1,000 ML IV SCH (01:26)
[2024-09-21 06:23] LABS: Potassium 4.3 mmol/L (3.5-5.1)
[2024-09-21 06:24] LABS: Anion Gap 8 (5-15); Calcium 9.5 mg/dL (8.7-10.4); Carbon Dioxide 28 mmol/L (20-31)
[2024-09-21 06:29] LABS: BUN/Creatinine Ratio 21.1 (10.0-20.0)
[2024-09-21 06:38] LABS: Blood Urea Nitrogen 28 mg/dL (9-23); Chloride 130 mmol/L (98-107); Glucose 146 mg/dL (74-106)
[2024-09-21 06:40] LABS: Sodium 166 mmol/L (136-145)
[2024-09-21 08:00] VITALS: PULSE 83; RESP 15; O2SAT 97
[2024-09-21 14:37] LABS: Potassium 4.1 mmol/L (3.5-5.1)
[2024-09-21 14:38] LABS: Anion Gap 8 (5-15); Carbon Dioxide 28 mmol/L (20-31)
[2024-09-21 14:39] LABS: Calcium 9.4 mg/dL (8.7-10.4)
[2024-09-21 14:43] LABS: BUN/Creatinine Ratio 20.9 (10.0-20.0)
[2024-09-21 15:14] LABS: Blood Urea Nitrogen 24 mg/dL (9-23); Chloride 128 mmol/L (98-107); Glucose 128 mg/dL (74-106); Sodium 164 mmol/L (136-145)
--- NOTE | 2024-09-21 15:30 | DVHPN2 ---
Subjective in bed resting Reviewed: Care Plan Changes from previous H/P or p: No Changes Eyes: No Pain, No Vision change, No Conjunctivae inflammation, No Eyelid inflammation, No Other, No Redness ENT: No Ear pain, No Ear discharge, No Nose pain, No Nose discharge, No Nose congestion, No Mouth pain, No Mouth swelling, No Throat pain, No Throat swelling, No Other Cardiovascular: No Chest Pain, No Palpitations, No Orthopnea, No Paroxysmal Noc. Dyspnea, No Edema, No Lt Headedness, No Other Respiratory: No Cough, No Dry, No Shortness of breath, No SOB with excertion, No Wheezing, No Hemoptysis, No Pleuritic Pain, No Sputum, No Other Gastrointestinal: No Nausea, No Vomiting, No Abdominal Pain, No Diarrhea, No Constipation, No Melena, No Hematochezia, No Other Genitourinary: No Dysuria, No Frequency, No Incontinence, No Hematuria, No Retention, No Other Musculoskeletal: No other, No neck pain, No shoulder pain, No arm pain, No back pain, No hand pain, No leg pain, No foot pain Skin: No Rash, No Lesions, No Jaundice, No Bruising, No Other Objective Vitals Vital Signs Date Time Temp Pulse Resp B/P (MAP) Pulse Ox O2 Delivery O2 Flow Rate FiO2 09/21/24 14:00 80 19 103/69 (80) 98 09/21/24 08:00 97.6 97.6 09/21/24 08:00 Room Air* 0 21 General Appearance: Alert HEENT: Atraumatic Lungs: Clear to auscultation Medications Current Medications Medications Dose Ordered Sig/Efrem Route Start Time Stop Time Status Last Admin Dose Admin Levetiracetam 100 ml @ 400 mls/hr BID IV 09/19/24 22:00 Acetaminophen/ Hydrocodone Bitart 1 tab Q4HP PRN PO 09/19/24 21:00 Ondansetron HCl 4 mg Q4HP PRN IV 09/19/24 21:00 Docusate Sodium 100 mg BIDPRN PRN PO 09/19/24 21:00 09/20/24 13:08 100 MG Acetaminophen 650 mg Q6HP PRN PO 09/19/24 21:00 Nitroglycerin 0.4 mg Q5MINP PRN SL 09/19/24 21:00 Morphine Sulfate 2 mg Q30M PRN IV 09/19/24 21:00 Dextrose 1,000 ml @ 100 mls/hr Q10H IV 09/21/24 01:15 09/21/24 11:29 100 MLS/HR Laboratory Results Laboratory Tests 09/20/24 05:40 09/21/24 14:05 Chemistry Test 09/21/24 00:01 09/21/24 05:42 09/21/24 14:05 Calcium Level 9.6 mg/dL (8.7-10.4) 9.5 mg/dL (8.7-10.4) 9.4 mg/dL (8.7-10.4) Urinalysis Test 09/19/24 18:03 Urine Color Yellow (Yellow) Urine Clarity Turbid (Clear) H Urine pH 5.5 (5.0-9.0) Urine Specific [place] 1.029 (1.001-1.035) Urine Protein 1+ (Negative) H Urine Ketones Negative (Negative) Urine Blood Negative /uL (Negative) Urine Nitrite 2+ (Negative) H Urine Bilirubin Negative (Negative) Urine Urobilinogen Normal mg/dL (Negative) Urine Leukocyte Esterase 2+ /uL (Negative) Urine RBC 3 /hpf (0 - 3) Urine WBC 25 /hpf (0 - 3) Urine Squamous Epithelial Cells Few /hpf (<5) Urine Bacteria Many /hpf (None Seen) H Urine Hyaline Casts Few /lpf (0 - 2) Urine Mucus Few (None Seen) Urine Glucose Normal mg/dL (Normal) Assessment/Plan Assessment/Plan 63-year-old male with a known history of developmental delay, seizure disorder who initially presented to the hospital by family member as he is not eating or drinking for last one week found to have 1. Severe hypernatremia suspect secondary to decreased fluid intake 2. Acute kidney injury suspected secondary to vasomotor nephropathy 3. Seizure disorder 4. Developmental delay D5W as per nephrology would like to hold off for now until repeat Na levels Plan discussed with: Other (nurse) Date of Service: Sep 21, 2024 Billing Provider: LEN STEINER MD Common Visit Codes: [id number] INP/OBS CARE(HIGH) LEN STEINER MD Sep 21, 2024 15:29
[2024-09-21 19:35] VITALS: PULSE 81; RESP 16; O2SAT 97
--- NOTE | 2024-09-21 22:09 | DVHPN2 ---
Progress Note Date Seen: Sep 21, 2024 Medical Necessity Reason Pt with a Central, PICC or Fol: Yes Subjective Patient reports: Other (poor historian) Review of Systems: Deferred Objective vital signs Vital Sign Date Time Temp Pulse Resp B/P (MAP) Pulse Ox O2 Delivery O2 Flow Rate FiO2 09/21/24 19:35 81 16 97 Room Air* 0 21 09/21/24 19:35 97.8 100/70 (80) 97.8 Total Intake and Output 09/20/24 09/20/24 09/21/24 15:00 23:00 07:00 Intake Total 100 ml Output Total 700 ml Balance -600 ml medications Current Medications Medications Dose Ordered Sig/Efrem Route Start Time Stop Time Status Last Admin Dose Admin Levetiracetam 100 ml @ 400 mls/hr BID IV 09/19/24 22:00 Acetaminophen/ Hydrocodone Bitart 1 tab Q4HP PRN PO 09/19/24 21:00 Ondansetron HCl 4 mg Q4HP PRN IV 09/19/24 21:00 Docusate Sodium 100 mg BIDPRN PRN PO 09/19/24 21:00 09/20/24 13:08 100 MG Acetaminophen 650 mg Q6HP PRN PO 09/19/24 21:00 Nitroglycerin 0.4 mg Q5MINP PRN SL 09/19/24 21:00 Morphine Sulfate 2 mg Q30M PRN IV 09/19/24 21:00 Dextrose 1,000 ml @ 100 mls/hr Q10H IV 09/21/24 01:15 09/21/24 21:43 100 MLS/HR Examination: NEURO:Abnormal laboratory and microbiology Laboratory Tests 09/21/24 14:05 09/20/24 05:40 Test 09/21/24 14:05 Range/Units Serum Glucose 128 H 74-106 mg/dL Problem List/Assessment/Plan Problem List/Assessment/Plan 1) Hemodynamically mediated acute kidney injury, prerenal etiology 2) chronic hyponatremia - water deficit approximately 7-8 L 3) CKD II 4) Siezure disorder 5) chronic constipation recs d5w iv--continue improving renal function Plan discussed with: TATIANA Farias MD Sep 21, 2024 22:09
[2024-09-22] VITALS (7 sets, daily range): BP systolic 93–115; BP diastolic 70–80; PULSE 74–83; RESP 16–17; TEMP 96.5–97.9; O2SAT 98
[2024-09-22 00:06] LABS: Potassium 3.7 mmol/L (3.5-5.1)
[2024-09-22 00:07] LABS: Anion Gap 10 (5-15); Calcium 9.3 mg/dL (8.7-10.4)
[2024-09-22 00:13] LABS: BUN/Creatinine Ratio 26.1 (10.0-20.0); Blood Urea Nitrogen 29 mg/dL (9-23); Carbon Dioxide 33 mmol/L (20-31); Chloride 121 mmol/L (98-107); Glucose 120 mg/dL (74-106)
[2024-09-22 00:14] LABS: Sodium 164 mmol/L (136-145)
[2024-09-22 07:37] LABS: Anion Gap 8 (5-15); Calcium 9.3 mg/dL (8.7-10.4); Carbon Dioxide 29 mmol/L (20-31); Potassium 3.5 mmol/L (3.5-5.1)
[2024-09-22 07:43] LABS: BUN/Creatinine Ratio 24.8 (10.0-20.0)
[2024-09-22 07:46] LABS: Blood Urea Nitrogen 28 mg/dL (9-23); Chloride 121 mmol/L (98-107); Glucose 119 mg/dL (74-106); Sodium 158 mmol/L (136-145)
[2024-09-22 15:04] LABS: Potassium 3.7 mmol/L (3.5-5.1)
[2024-09-22 15:05] LABS: Anion Gap 9 (5-15); Calcium 9.3 mg/dL (8.7-10.4); Carbon Dioxide 30 mmol/L (20-31)
[2024-09-22 15:10] LABS: BUN/Creatinine Ratio 21.2 (10.0-20.0); Blood Urea Nitrogen 21 mg/dL (9-23)
[2024-09-22 15:11] LABS: Chloride 119 mmol/L (98-107); Glucose 111 mg/dL (74-106); Sodium 158 mmol/L (136-145)
--- NOTE | 2024-09-22 18:33 | DVHPN2 ---
Subjective in bed resting, mother at bedside and I discussed Na still being high Reviewed: Care Plan Changes from previous H/P or p: No Changes Eyes: No Pain, No Vision change, No Conjunctivae inflammation, No Eyelid inflammation, No Other, No Redness ENT: No Ear pain, No Ear discharge, No Nose pain, No Nose discharge, No Nose congestion, No Mouth pain, No Mouth swelling, No Throat pain, No Throat swelling, No Other Cardiovascular: No Chest Pain, No Palpitations, No Orthopnea, No Paroxysmal Noc. Dyspnea, No Edema, No Lt Headedness, No Other Respiratory: No Cough, No Dry, No Shortness of breath, No SOB with excertion, No Wheezing, No Hemoptysis, No Pleuritic Pain, No Sputum, No Other Gastrointestinal: No Nausea, No Vomiting, No Abdominal Pain, No Diarrhea, No Constipation, No Melena, No Hematochezia, No Other Genitourinary: No Dysuria, No Frequency, No Incontinence, No Hematuria, No Retention, No Other Musculoskeletal: No other, No neck pain, No shoulder pain, No arm pain, No back pain, No hand pain, No leg pain, No foot pain Skin: No Rash, No Lesions, No Jaundice, No Bruising, No Other Objective Vitals Vital Signs Date Time Temp Pulse Resp B/P (MAP) Pulse Ox O2 Delivery O2 Flow Rate FiO2 09/22/24 17:00 96.5 83 16 115/80 (92) 98 96.5 09/22/24 12:25 Room Air* 0 21 Intake/Output Intake and Output 09/22/24 05:00 Intake Total 500 ml Output Total 700 ml Balance -200 ml Intake Oral 100 ml IV Total 400 ml Output Urine Total 700 ml General Appearance: Alert HEENT: Atraumatic Lungs: Clear to auscultation Medications Current Medications Medications Dose Ordered Sig/Efrem Route Start Time Stop Time Status Last Admin Dose Admin Levetiracetam 100 ml @ 400 mls/hr BID IV 09/19/24 22:00 Acetaminophen/ Hydrocodone Bitart 1 tab Q4HP PRN PO 09/19/24 21:00 Ondansetron HCl 4 mg Q4HP PRN IV 09/19/24 21:00 Docusate Sodium 100 mg BIDPRN PRN PO 09/19/24 21:00 09/20/24 13:08 100 MG Acetaminophen 650 mg Q6HP PRN PO 09/19/24 21:00 Nitroglycerin 0.4 mg Q5MINP PRN SL 09/19/24 21:00 Morphine Sulfate 2 mg Q30M PRN IV 09/19/24 21:00 Dextrose 1,000 ml @ 100 mls/hr Q10H IV 09/21/24 01:15 09/22/24 17:05 100 MLS/HR Laboratory Results Laboratory Tests 09/20/24 05:40 09/22/24 14:10 Chemistry Test 09/21/24 23:52 09/22/24 05:54 09/22/24 14:10 Calcium Level 9.3 mg/dL (8.7-10.4) 9.3 mg/dL (8.7-10.4) 9.3 mg/dL (8.7-10.4) Urinalysis Test 09/19/24 18:03 Urine Color Yellow (Yellow) Urine Clarity Turbid (Clear) H Urine pH 5.5 (5.0-9.0) Urine Specific [place] 1.029 (1.001-1.035) Urine Protein 1+ (Negative) H Urine Ketones Negative (Negative) Urine Blood Negative /uL (Negative) Urine Nitrite 2+ (Negative) H Urine Bilirubin Negative (Negative) Urine Urobilinogen Normal mg/dL (Negative) Urine Leukocyte Esterase 2+ /uL (Negative) Urine RBC 3 /hpf (0 - 3) Urine WBC 25 /hpf (0 - 3) Urine Squamous Epithelial Cells Few /hpf (<5) Urine Bacteria Many /hpf (None Seen) H Urine Hyaline Casts Few /lpf (0 - 2) Urine Mucus Few (None Seen) Urine Glucose Normal mg/dL (Normal) Assessment/Plan Assessment/Plan 63-year-old male with a known history of developmental delay, seizure disorder who initially presented to the hospital by family member as he is not eating or drinking for last one week found to have 1. Severe hypernatremia suspect secondary to decreased fluid intake 2. Acute kidney injury suspected secondary to vasomotor nephropathy 3. Seizure disorder 4. Developmental delay D5W as per nephrology Na improving to 158 Continue to monitor Na levels Plan discussed with: Other (mother) Date of Service: Sep 22, 2024 Billing Provider: LEN STEINER MD Common Visit Codes: [id number] INP/OBS CARE(HIGH) JATIN,LEN J MD Sep 22, 2024 18:33
--- NOTE | 2024-09-22 21:04 | DVHPN2 ---
Progress Note Date Seen: Sep 22, 2024 Medical Necessity Reason Pt with a Central, PICC or Fol: Yes Subjective Patient reports: Other Review of Systems: Deferred Objective vital signs Vital Sign Date Time Temp Pulse Resp B/P (MAP) Pulse Ox O2 Delivery O2 Flow Rate FiO2 09/22/24 17:00 96.5 83 16 115/80 (92) 98 96.5 09/22/24 12:25 Room Air* 0 21 Total Intake and Output 09/21/24 09/21/24 09/22/24 15:00 23:00 07:00 Intake Total 100 ml 300 ml Balance 100 ml 300 ml medications Current Medications Medications Dose Ordered Sig/Efrem Route Start Time Stop Time Status Last Admin Dose Admin Acetaminophen/ Hydrocodone Bitart 1 tab Q4HP PRN PO 09/19/24 21:00 Ondansetron HCl 4 mg Q4HP PRN IV 09/19/24 21:00 Docusate Sodium 100 mg BIDPRN PRN PO 09/19/24 21:00 09/20/24 13:08 100 MG Acetaminophen 650 mg Q6HP PRN PO 09/19/24 21:00 Nitroglycerin 0.4 mg Q5MINP PRN SL 09/19/24 21:00 Morphine Sulfate 2 mg Q30M PRN IV 09/19/24 21:00 Dextrose 1,000 ml @ 100 mls/hr Q10H IV 09/21/24 01:15 09/22/24 17:05 100 MLS/HR Patient Own Medication 300 BID PO 09/22/24 22:00 UNV Examination: NEURO:Abnormal laboratory and microbiology Laboratory Tests 09/22/24 14:10 09/20/24 05:40 Test 09/22/24 14:10 Range/Units Serum Glucose 111 H 74-106 mg/dL Problem List/Assessment/Plan Problem List/Assessment/Plan 1) Hemodynamically mediated acute kidney injury, prerenal etiology 2) chronic hyponatremia - water deficit approximately 7-8 L 3) CKD II 4) Siezure disorder 5) chronic constipation recs d5w iv--continue improving renal function Plan discussed with: TATIANA Farias MD Sep 22, 2024 21:04
[2024-09-23] VITALS (7 sets, daily range): BP systolic 91–138; BP diastolic 59–80; PULSE 77–88; RESP 16–17; TEMP 97.6–99.3; O2SAT 92–98
[2024-09-23] MEDS: OXcarbazepine 300 MG TAB PO SCH ×2 (08:24→20:11)
[2024-09-23] MEDS: LACTULOSE 20Gm/30ML SOLN PO ONE (15:47)
--- NOTE | 2024-09-23 16:45 | DVHPN2 ---
Progress Note Date Seen: Sep 23, 2024 Medical Necessity Reason Pt with a Central, PICC or Fol: Yes Subjective Review of Systems: Deferred Objective vital signs Vital Sign Date Time Temp Pulse Resp B/P (MAP) Pulse Ox O2 Delivery O2 Flow Rate FiO2 09/23/24 13:00 99.3 85 16 93/63 (73) 95 99.3 09/23/24 08:00 Room Air* 0 21 Total Intake and Output 09/22/24 09/22/24 09/23/24 15:00 23:00 07:00 Intake Total 400 ml 100 ml Output Total 100 ml 450 ml Balance 400 ml 0 ml -450 ml medications Current Medications Medications Dose Ordered Sig/Efrem Route Start Time Stop Time Status Last Admin Dose Admin Acetaminophen/ Hydrocodone Bitart 1 tab Q4HP PRN PO 09/19/24 21:00 Ondansetron HCl 4 mg Q4HP PRN IV 09/19/24 21:00 Docusate Sodium 100 mg BIDPRN PRN PO 09/19/24 21:00 09/20/24 13:08 100 MG Acetaminophen 650 mg Q6HP PRN PO 09/19/24 21:00 Nitroglycerin 0.4 mg Q5MINP PRN SL 09/19/24 21:00 Morphine Sulfate 2 mg Q30M PRN IV 09/19/24 21:00 Dextrose 1,000 ml @ 100 mls/hr Q10H IV 09/21/24 01:15 09/23/24 15:27 100 MLS/HR Oxcarbazepine 300 mg BID PO 09/23/24 10:00 09/23/24 08:24 300 MG laboratory and microbiology Laboratory Tests 09/23/24 06:00 09/22/24 14:10 09/20/24 05:40 Test 09/22/24 14:10 Range/Units Serum Glucose 111 H 74-106 mg/dL Problem List/Assessment/Plan Problem List/Assessment/Plan 1) Hemodynamically mediated acute kidney injury, prerenal etiology 2) chronic hyponatremia - water deficit approximately 7-8 L 3) CKD II 4) Siezure disorder 5) chronic constipation recs d5w iv-- stop if sodium reaches 140 range improved renal function sodium improving i will sign off this case/pls reconsult if needed Plan discussed with: Other Dietary Evaluation Review Comments: Encourage PO intake to meet 75% of his needs Expected Outcomes/Goals: gradual weight gain, heled wounds, improved strength TATIANA STANLEY MD Sep 23, 2024 16:45
[2024-09-23] MEDS: D5W 5% 1,000 ML IV SCH (16:56)
--- NOTE | 2024-09-23 17:36 | DVHPN2 ---
Subjective Seen and examined at bedside, mom at bedside. Patient is resting comfortably. Reviewed: Care Plan Changes from previous H/P or p: No Changes Eyes: No Pain, No Vision change, No Conjunctivae inflammation, No Eyelid inflammation, No Other, No Redness ENT: No Ear pain, No Ear discharge, No Nose pain, No Nose discharge, No Nose congestion, No Mouth pain, No Mouth swelling, No Throat pain, No Throat swelling, No Other Cardiovascular: No Chest Pain, No Palpitations, No Orthopnea, No Paroxysmal Noc. Dyspnea, No Edema, No Lt Headedness, No Other Respiratory: No Cough, No Dry, No Shortness of breath, No SOB with excertion, No Wheezing, No Hemoptysis, No Pleuritic Pain, No Sputum, No Other Gastrointestinal: No Nausea, No Vomiting, No Abdominal Pain, No Diarrhea, No Constipation, No Melena, No Hematochezia, No Other Genitourinary: No Dysuria, No Frequency, No Incontinence, No Hematuria, No Retention, No Other Musculoskeletal: No other, No neck pain, No shoulder pain, No arm pain, No back pain, No hand pain, No leg pain, No foot pain Skin: No Rash, No Lesions, No Jaundice, No Bruising, No Other Objective Vitals Vital Signs Date Time Temp Pulse Resp B/P (MAP) Pulse Ox O2 Delivery O2 Flow Rate FiO2 09/23/24 13:00 99.3 85 16 93/63 (73) 95 99.3 09/23/24 08:00 Room Air* 0 21 Intake/Output Intake and Output 09/23/24 07:00 Intake Total 500 ml Output Total 550 ml Balance -50 ml Intake Oral 100 ml IV Total 400 ml Output Urine Total 550 ml Exam Gen: in bed, resting non communicative Cvs: N S1/S2, RRR Resp: Diminished b/l Abd: Soft Private Client Advisor: Non communicative Medications Current Medications Medications Dose Ordered Sig/Efrem Route Start Time Stop Time Status Last Admin Dose Admin Acetaminophen/ Hydrocodone Bitart 1 tab Q4HP PRN PO 09/19/24 21:00 Ondansetron HCl 4 mg Q4HP PRN IV 09/19/24 21:00 Docusate Sodium 100 mg BIDPRN PRN PO 09/19/24 21:00 09/20/24 13:08 100 MG Acetaminophen 650 mg Q6HP PRN PO 09/19/24 21:00 Nitroglycerin 0.4 mg Q5MINP PRN SL 09/19/24 21:00 Morphine Sulfate 2 mg Q30M PRN IV 09/19/24 21:00 Oxcarbazepine 300 mg BID PO 09/23/24 10:00 09/23/24 08:24 300 MG Dextrose 1,000 ml @ 75 mls/hr [id number] IV 09/23/24 16:45 09/23/24 16:56 75 MLS/HR Laboratory Results Laboratory Tests 09/20/24 05:40 09/22/24 14:10 09/23/24 06:00 Urinalysis Test 09/19/24 18:03 Urine Color Yellow (Yellow) Urine Clarity Turbid (Clear) H Urine pH 5.5 (5.0-9.0) Urine Specific [place] 1.029 (1.001-1.035) Urine Protein 1+ (Negative) H Urine Ketones Negative (Negative) Urine Blood Negative /uL (Negative) Urine Nitrite 2+ (Negative) H Urine Bilirubin Negative (Negative) Urine Urobilinogen Normal mg/dL (Negative) Urine Leukocyte Esterase 2+ /uL (Negative) Urine RBC 3 /hpf (0 - 3) Urine WBC 25 /hpf (0 - 3) Urine Squamous Epithelial Cells Few /hpf (<5) Urine Bacteria Many /hpf (None Seen) H Urine Hyaline Casts Few /lpf (0 - 2) Urine Mucus Few (None Seen) Urine Glucose Normal mg/dL (Normal) Assessment/Plan Assessment/Plan Severe hypernatremia suspect secondary to decreased fluid intake Acute kidney injury suspected secondary to vasomotor nephropathy Seizure disorder Developmental delay Plan discussed with: Other (mom) My Orders Orders - BOGDAN CHOWDHURY MD Procedure Category Date Status Time * Wound Consult CONS 09/23/24 Transmitted Basic Metabolic Panel LAB 09/24/24 Verified 04:00 Date of Service: Sep 23, 2024 Billing Provider: BOGDAN CHOWDHURY MD Common Visit Codes: [id number] INP/OBS CARE(HIGH) BOGDAN CHOWDHURY MD Sep 23, 2024 17:36
[2024-09-23] MEDS: BISACODYL 5 MG EC TAB PO ONE (18:49)
[2024-09-24] VITALS (8 sets, daily range): BP systolic 101–120; BP diastolic 64–71; PULSE 80–94; RESP 16–20; TEMP 97.1–98.9; O2SAT 83–98
[2024-09-24 09:32] LABS: Sodium 142 mmol/L (136-145)
[2024-09-24 09:33] LABS: Anion Gap 3 (5-15); Calcium 8.8 mg/dL (8.7-10.4); Carbon Dioxide 30 mmol/L (20-31)
[2024-09-24 09:38] LABS: BUN/Creatinine Ratio 14.4 (10.0-20.0); Blood Urea Nitrogen 14 mg/dL (9-23)
[2024-09-24 09:47] LABS: Chloride 109 mmol/L (98-107); Glucose 109 mg/dL (74-106); Potassium 3.2 mmol/L (3.5-5.1)
[2024-09-24] MEDS: BISACODYL 10 MG RECT SUPP PR ONE (10:49)
[2024-09-24] MEDS: FLEET ENEMA(ADULT) 135 ML PR ONE (13:22)
--- NOTE | 2024-09-24 14:56 | DVHPN2 ---
Subjective Seen and examined at bedside, mom at bedside. Still constipated. No bowel movement Reviewed: Care Plan Changes from previous H/P or p: No Changes Eyes: No Pain, No Vision change, No Conjunctivae inflammation, No Eyelid inflammation, No Other, No Redness ENT: No Ear pain, No Ear discharge, No Nose pain, No Nose discharge, No Nose congestion, No Mouth pain, No Mouth swelling, No Throat pain, No Throat swelling, No Other Cardiovascular: No Chest Pain, No Palpitations, No Orthopnea, No Paroxysmal Noc. Dyspnea, No Edema, No Lt Headedness, No Other Respiratory: No Cough, No Dry, No Shortness of breath, No SOB with excertion, No Wheezing, No Hemoptysis, No Pleuritic Pain, No Sputum, No Other Gastrointestinal: No Nausea, No Vomiting, No Abdominal Pain, No Diarrhea, No Constipation, No Melena, No Hematochezia, No Other Genitourinary: No Dysuria, No Frequency, No Incontinence, No Hematuria, No Retention, No Other Musculoskeletal: No other, No neck pain, No shoulder pain, No arm pain, No back pain, No hand pain, No leg pain, No foot pain Skin: No Rash, No Lesions, No Jaundice, No Bruising, No Other Objective Vitals Vital Signs Date Time Temp Pulse Resp B/P (MAP) Pulse Ox O2 Delivery O2 Flow Rate FiO2 09/24/24 13:00 97.1 85 20 109/64 (79) 97 97.1 09/24/24 08:00 Room Air* 0 21 Intake/Output Intake and Output 09/24/24 07:00 Intake Total 1330 ml Output Total 325 ml Balance 1005 ml Intake Oral 230 ml IV Total 1100 ml Output Urine Total 325 ml Exam Gen: in bed, resting non communicative Cvs: N S1/S2, RRR Resp: Diminished b/l Abd: Soft Hat Marker: Non communicative Medications Current Medications Medications Dose Ordered Sig/Efrem Route Start Time Stop Time Status Last Admin Dose Admin Acetaminophen/ Hydrocodone Bitart 1 tab Q4HP PRN PO 09/19/24 21:00 Ondansetron HCl 4 mg Q4HP PRN IV 09/19/24 21:00 Docusate Sodium 100 mg BIDPRN PRN PO 09/19/24 21:00 09/20/24 13:08 100 MG Acetaminophen 650 mg Q6HP PRN PO 09/19/24 21:00 Nitroglycerin 0.4 mg Q5MINP PRN SL 09/19/24 21:00 Morphine Sulfate 2 mg Q30M PRN IV 09/19/24 21:00 Dextrose 1,000 ml @ 75 mls/hr [id number] IV 09/23/24 16:45 09/24/24 05:28 75 MLS/HR Oxcarbazepine 300 mg Q12H PO 09/23/24 21:00 09/24/24 08:40 300 MG Atorvastatin Calcium 10 mg HS PO 09/24/24 22:00 Laboratory Results Laboratory Tests 09/20/24 05:40 09/24/24 09:01 Chemistry Test 09/24/24 09:01 Calcium Level 8.8 mg/dL (8.7-10.4) Urinalysis Test 09/19/24 18:03 Urine Color Yellow (Yellow) Urine Clarity Turbid (Clear) H Urine pH 5.5 (5.0-9.0) Urine Specific [place] 1.029 (1.001-1.035) Urine Protein 1+ (Negative) H Urine Ketones Negative (Negative) Urine Blood Negative /uL (Negative) Urine Nitrite 2+ (Negative) H Urine Bilirubin Negative (Negative) Urine Urobilinogen Normal mg/dL (Negative) Urine Leukocyte Esterase 2+ /uL (Negative) Urine RBC 3 /hpf (0 - 3) Urine WBC 25 /hpf (0 - 3) Urine Squamous Epithelial Cells Few /hpf (<5) Urine Bacteria Many /hpf (None Seen) H Urine Hyaline Casts Few /lpf (0 - 2) Urine Mucus Few (None Seen) Urine Glucose Normal mg/dL (Normal) Assessment/Plan Assessment/Plan Severe hypernatremia suspect secondary to decreased fluid intake Acute kidney injury suspected secondary to vasomotor nephropathy Seizure disorder Developmental delay Plan discussed with: Other (mother) My Orders Orders - BOGDAN CHOWDHURY MD Procedure Category Date Status Time Atorvastatin (Lipitor) PHA 09/24/24 In Process 22:00 Transfer Orders XFER 09/24/24 Transmitted 14:37 Date of Service: Sep 24, 2024 Billing Provider: BOGDAN CHOWDHURY MD Common Visit Codes: [id number] INP/OBS CARE(HIGH) BOGDAN CHOWDHURY MD Sep 24, 2024 14:56
[2024-09-24] MEDS: POTASSIUM EFFERVESENT TAB 25 MEQ PO ONE (17:49)
[2024-09-24] MEDS: LACTULOSE 20Gm/30ML SOLN PO ONE (17:49)
[2024-09-24] MEDS: ATORVASTATIN 20 MG TAB PO SCH (20:42)
[2024-09-25] VITALS (8 sets, daily range): BP systolic 98–137; BP diastolic 56–68; PULSE 73–90; RESP 14–20; TEMP 97.6–99.5; O2SAT 92–98
[2024-09-25 07:22] LABS: Anion Gap 10 (5-15); Carbon Dioxide 26 mmol/L (20-31); Sodium 144 mmol/L (136-145)
[2024-09-25 07:23] LABS: Calcium 8.8 mg/dL (8.7-10.4)
[2024-09-25 07:24] LABS: Chloride 108 mmol/L (98-107); Potassium 3.4 mmol/L (3.5-5.1)
[2024-09-25 07:28] LABS: BUN/Creatinine Ratio 17.2 (10.0-20.0); Blood Urea Nitrogen 16 mg/dL (9-23); Glucose 95 mg/dL (74-106)
[2024-09-25 07:33] LABS: Magnesium 2.7 mg/dL (1.6-2.6)
--- NOTE | 2024-09-25 11:22 | DVHPN2 ---
Subjective The patient seen and examined at bedside. Complain of being tired and weak. Reviewed: Care Plan Changes from previous H/P or p: No Changes Eyes: No Pain, No Vision change, No Conjunctivae inflammation, No Eyelid inflammation, No Other, No Redness ENT: No Ear pain, No Ear discharge, No Nose pain, No Nose discharge, No Nose congestion, No Mouth pain, No Mouth swelling, No Throat pain, No Throat swelling, No Other Cardiovascular: No Chest Pain, No Palpitations, No Orthopnea, No Paroxysmal Noc. Dyspnea, No Edema, No Lt Headedness, No Other Respiratory: No Cough, No Dry, No Shortness of breath, No SOB with excertion, No Wheezing, No Hemoptysis, No Pleuritic Pain, No Sputum, No Other Gastrointestinal: No Nausea, No Vomiting, No Abdominal Pain, No Diarrhea, No Constipation, No Melena, No Hematochezia, No Other Genitourinary: No Dysuria, No Frequency, No Incontinence, No Hematuria, No Retention, No Other Musculoskeletal: No other, No neck pain, No shoulder pain, No arm pain, No back pain, No hand pain, No leg pain, No foot pain Skin: No Rash, No Lesions, No Jaundice, No Bruising, No Other Objective Vitals Vital Signs Date Time Temp Pulse Resp B/P (MAP) Pulse Ox O2 Delivery O2 Flow Rate FiO2 09/25/24 09:00 97.6 83 18 114/56 (75) 92 97.6 09/24/24 20:00 Room Air* 0 21 Intake/Output Intake and Output 09/25/24 07:00 Intake Total 240 ml Output Total 350 ml Balance -110 ml Intake Oral 240 ml Output Urine Total 350 ml # Bowel Movements 1 General Appearance: Alert, Oriented X3, Cooperative, No acute distress HEENT: Atraumatic, PERRLA, EOMI, Mucous membr. moist/pink Lungs: Clear to auscultation, Normal air movement Cardiovascular: Regular rate, Normal S1, Normal S2, No murmurs, Gallops, Rubs Neuro: Cranial nerves 3-12 NL Psych/Mental Status: Mental status NL Medications Current Medications Medications Dose Ordered Sig/Efrem Route Start Time Stop Time Status Last Admin Dose Admin Acetaminophen/ Hydrocodone Bitart 1 tab Q4HP PRN PO 09/19/24 21:00 Ondansetron HCl 4 mg Q4HP PRN IV 09/19/24 21:00 Docusate Sodium 100 mg BIDPRN PRN PO 09/19/24 21:00 09/20/24 13:08 100 MG Acetaminophen 650 mg Q6HP PRN PO 09/19/24 21:00 Nitroglycerin 0.4 mg Q5MINP PRN SL 09/19/24 21:00 Morphine Sulfate 2 mg Q30M PRN IV 09/19/24 21:00 Dextrose 1,000 ml @ 75 mls/hr [id number] IV 09/23/24 16:45 09/24/24 05:28 75 MLS/HR Oxcarbazepine 300 mg Q12H PO 09/23/24 21:00 09/25/24 09:21 300 MG Atorvastatin Calcium 10 mg HS PO 09/24/24 22:00 09/24/24 20:42 10 MG Laboratory Results Laboratory Tests 09/20/24 05:40 09/25/24 06:13 Chemistry Test 09/25/24 06:13 Calcium Level 8.8 mg/dL (8.7-10.4) Magnesium Level 2.7 mg/dL (1.6-2.6) H Urinalysis Test 09/19/24 18:03 Urine Color Yellow (Yellow) Urine Clarity Turbid (Clear) H Urine pH 5.5 (5.0-9.0) Urine Specific [place] 1.029 (1.001-1.035) Urine Protein 1+ (Negative) H Urine Ketones Negative (Negative) Urine Blood Negative /uL (Negative) Urine Nitrite 2+ (Negative) H Urine Bilirubin Negative (Negative) Urine Urobilinogen Normal mg/dL (Negative) Urine Leukocyte Esterase 2+ /uL (Negative) Urine RBC 3 /hpf (0 - 3) Urine WBC 25 /hpf (0 - 3) Urine Squamous Epithelial Cells Few /hpf (<5) Urine Bacteria Many /hpf (None Seen) H Urine Hyaline Casts Few /lpf (0 - 2) Urine Mucus Few (None Seen) Urine Glucose Normal mg/dL (Normal) Labs and/or images reviewed: Labs reviewed by me Assessment/Plan Assessment/Plan Severe hypernatremia suspect secondary to decreased fluid intake Acute kidney injury suspected secondary to vasomotor nephropathy Seizure disorder Developmental delay Plan: Continuing current management. We will add the D5 W to his regimen and follow up closely with his hyponatremia. Continuing with physical therapy to get the patient out of bed and ambulate. Plan discussed with: Patient Date of Service: Sep 25, 2024 Billing Provider: MINESH SAWANT MD Common Visit Codes: [id number] INP/OBS CARE(HIGH) MINESH SAWANT MD Sep 25, 2024 11:22
[2024-09-25 15:18] LABS: Sodium 142 mmol/L (136-145)
[2024-09-25 15:19] LABS: Anion Gap 6 (5-15); Calcium 8.7 mg/dL (8.7-10.4); Carbon Dioxide 28 mmol/L (20-31)
[2024-09-25 15:24] LABS: BUN/Creatinine Ratio 19.6 (10.0-20.0); Blood Urea Nitrogen 20 mg/dL (9-23)
[2024-09-25 15:26] LABS: Chloride 108 mmol/L (98-107); Glucose 145 mg/dL (74-106); Potassium 3.3 mmol/L (3.5-5.1)
[2024-09-26] VITALS (7 sets, daily range): BP systolic 108–133; BP diastolic 56–69; PULSE 64–83; RESP 12–20; TEMP 97.4–98.4; O2SAT 95–97
--- NOTE | 2024-09-26 10:31 | DVHPN2 ---
Subjective The patient seen and examined at bedside. Complain of being tired and weak. Reviewed: Care Plan Changes from previous H/P or p: No Changes Eyes: No Pain, No Vision change, No Conjunctivae inflammation, No Eyelid inflammation, No Other, No Redness ENT: No Ear pain, No Ear discharge, No Nose pain, No Nose discharge, No Nose congestion, No Mouth pain, No Mouth swelling, No Throat pain, No Throat swelling, No Other Cardiovascular: No Chest Pain, No Palpitations, No Orthopnea, No Paroxysmal Noc. Dyspnea, No Edema, No Lt Headedness, No Other Respiratory: No Cough, No Dry, No Shortness of breath, No SOB with excertion, No Wheezing, No Hemoptysis, No Pleuritic Pain, No Sputum, No Other Gastrointestinal: No Nausea, No Vomiting, No Abdominal Pain, No Diarrhea, No Constipation, No Melena, No Hematochezia, No Other Genitourinary: No Dysuria, No Frequency, No Incontinence, No Hematuria, No Retention, No Other Musculoskeletal: No other, No neck pain, No shoulder pain, No arm pain, No back pain, No hand pain, No leg pain, No foot pain Skin: No Rash, No Lesions, No Jaundice, No Bruising, No Other Objective Vitals Vital Signs Date Time Temp Pulse Resp B/P (MAP) Pulse Ox O2 Delivery O2 Flow Rate FiO2 09/26/24 09:21 97.7 70 19 108/60 (76) 95 97.7 09/25/24 20:00 Room Air* 0 21 Intake/Output Intake and Output 09/26/24 07:00 Intake Total 440 ml Output Total 550 ml Balance -110 ml Intake Oral 440 ml Output Urine Total 550 ml # Bowel Movements 1 General Appearance: Alert, Oriented X3, Cooperative, No acute distress HEENT: Atraumatic, PERRLA, EOMI, Mucous membr. moist/pink Lungs: Clear to auscultation, Normal air movement Cardiovascular: Regular rate, Normal S1, Normal S2, No murmurs, Gallops, Rubs Neuro: Cranial nerves 3-12 NL Psych/Mental Status: Mental status NL Medications Current Medications Medications Dose Ordered Sig/Efrem Route Start Time Stop Time Status Last Admin Dose Admin Acetaminophen/ Hydrocodone Bitart 1 tab Q4HP PRN PO 09/19/24 21:00 Ondansetron HCl 4 mg Q4HP PRN IV 09/19/24 21:00 Docusate Sodium 100 mg BIDPRN PRN PO 09/19/24 21:00 09/25/24 20:42 100 MG Acetaminophen 650 mg Q6HP PRN PO 09/19/24 21:00 Nitroglycerin 0.4 mg Q5MINP PRN SL 09/19/24 21:00 Morphine Sulfate 2 mg Q30M PRN IV 09/19/24 21:00 Dextrose 1,000 ml @ 75 mls/hr [id number] IV 09/23/24 16:45 09/25/24 21:55 75 MLS/HR Oxcarbazepine 300 mg Q12H PO 09/23/24 21:00 09/26/24 08:34 300 MG Atorvastatin Calcium 10 mg HS PO 09/24/24 22:00 09/25/24 20:38 10 MG Laboratory Results Laboratory Tests 09/20/24 05:40 09/25/24 14:30 Chemistry Test 09/25/24 14:30 Calcium Level 8.7 mg/dL (8.7-10.4) Urinalysis Test 09/19/24 18:03 Urine Color Yellow (Yellow) Urine Clarity Turbid (Clear) H Urine pH 5.5 (5.0-9.0) Urine Specific [place] 1.029 (1.001-1.035) Urine Protein 1+ (Negative) H Urine Ketones Negative (Negative) Urine Blood Negative /uL (Negative) Urine Nitrite 2+ (Negative) H Urine Bilirubin Negative (Negative) Urine Urobilinogen Normal mg/dL (Negative) Urine Leukocyte Esterase 2+ /uL (Negative) Urine RBC 3 /hpf (0 - 3) Urine WBC 25 /hpf (0 - 3) Urine Squamous Epithelial Cells Few /hpf (<5) Urine Bacteria Many /hpf (None Seen) H Urine Hyaline Casts Few /lpf (0 - 2) Urine Mucus Few (None Seen) Urine Glucose Normal mg/dL (Normal) Assessment/Plan Assessment/Plan Severe hypernatremia suspect secondary to decreased fluid intake Acute kidney injury suspected secondary to vasomotor nephropathy Seizure disorder Developmental delay Plan: Continuing current management. We will add the D5 W to his regimen and follow up closely with his hyponatremia. Continuing with physical therapy to get the patient out of bed and ambulate. Plan discussed with: Other (Rn) Date of Service: Sep 26, 2024 Billing Provider: MINESH SAWANT MD Common Visit Codes: [id number] INP/OBS CARE(HIGH) MINESH SAWANT MD Sep 26, 2024 10:31
[2024-09-27 01:00] VITALS: BP 122/62; PULSE 69; RESP 12; TEMP 98; O2SAT 97
[2024-09-27 05:00] VITALS: BP 106/56; PULSE 67; RESP 12; TEMP 98.4; O2SAT 97
[2024-09-27 08:00] VITALS: PULSE 68; RESP 16; O2SAT 96
[2024-09-27 09:56] VITALS: BP 117/63; PULSE 71; RESP 19; TEMP 97.6
--- NOTE | 2024-09-27 13:05 | DVHPN2 ---
Subjective The patient seen and examined at bedside. Complain of being tired and weak. Reviewed: Care Plan Changes from previous H/P or p: No Changes Eyes: No Pain, No Vision change, No Conjunctivae inflammation, No Eyelid inflammation, No Other, No Redness ENT: No Ear pain, No Ear discharge, No Nose pain, No Nose discharge, No Nose congestion, No Mouth pain, No Mouth swelling, No Throat pain, No Throat swelling, No Other Cardiovascular: No Chest Pain, No Palpitations, No Orthopnea, No Paroxysmal Noc. Dyspnea, No Edema, No Lt Headedness, No Other Respiratory: No Cough, No Dry, No Shortness of breath, No SOB with excertion, No Wheezing, No Hemoptysis, No Pleuritic Pain, No Sputum, No Other Gastrointestinal: No Nausea, No Vomiting, No Abdominal Pain, No Diarrhea, No Constipation, No Melena, No Hematochezia, No Other Genitourinary: No Dysuria, No Frequency, No Incontinence, No Hematuria, No Retention, No Other Musculoskeletal: No other, No neck pain, No shoulder pain, No arm pain, No back pain, No hand pain, No leg pain, No foot pain Skin: No Rash, No Lesions, No Jaundice, No Bruising, No Other Objective Vitals Vital Signs Date Time Temp Pulse Resp B/P (MAP) Pulse Ox O2 Delivery O2 Flow Rate FiO2 09/27/24 09:56 97.6 71 19 117/63 (81) 97.6 09/27/24 08:00 96 Room Air* 0 21 Intake/Output Intake and Output 09/27/24 07:00 Intake Total 1810 ml Output Total 550 ml Balance 1260 ml Intake Oral 310 ml IV Total 1500 ml Output Urine Total 550 ml Stool Total 0 ml General Appearance: Alert, Oriented X3, Cooperative, No acute distress HEENT: Atraumatic, PERRLA, EOMI, Mucous membr. moist/pink Lungs: Clear to auscultation, Normal air movement Cardiovascular: Regular rate, Normal S1, Normal S2, No murmurs, Gallops, Rubs Neuro: Cranial nerves 3-12 NL Psych/Mental Status: Mental status NL Medications Current Medications Medications Dose Ordered Sig/Efrem Route Start Time Stop Time Status Last Admin Dose Admin Acetaminophen/ Hydrocodone Bitart 1 tab Q4HP PRN PO 09/19/24 21:00 Ondansetron HCl 4 mg Q4HP PRN IV 09/19/24 21:00 Docusate Sodium 100 mg BIDPRN PRN PO 09/19/24 21:00 09/25/24 20:42 100 MG Acetaminophen 650 mg Q6HP PRN PO 09/19/24 21:00 Nitroglycerin 0.4 mg Q5MINP PRN SL 09/19/24 21:00 Morphine Sulfate 2 mg Q30M PRN IV 09/19/24 21:00 Dextrose 1,000 ml @ 75 mls/hr [id number] IV 09/23/24 16:45 09/27/24 08:11 75 MLS/HR Oxcarbazepine 300 mg Q12H PO 09/23/24 21:00 09/27/24 08:10 300 MG Atorvastatin Calcium 10 mg HS PO 09/24/24 22:00 09/26/24 21:09 10 MG Laboratory Results Laboratory Tests 09/20/24 05:40 09/25/24 14:30 Urinalysis Test 09/19/24 18:03 Urine Color Yellow (Yellow) Urine Clarity Turbid (Clear) H Urine pH 5.5 (5.0-9.0) Urine Specific [place] 1.029 (1.001-1.035) Urine Protein 1+ (Negative) H Urine Ketones Negative (Negative) Urine Blood Negative /uL (Negative) Urine Nitrite 2+ (Negative) H Urine Bilirubin Negative (Negative) Urine Urobilinogen Normal mg/dL (Negative) Urine Leukocyte Esterase 2+ /uL (Negative) Urine RBC 3 /hpf (0 - 3) Urine WBC 25 /hpf (0 - 3) Urine Squamous Epithelial Cells Few /hpf (<5) Urine Bacteria Many /hpf (None Seen) H Urine Hyaline Casts Few /lpf (0 - 2) Urine Mucus Few (None Seen) Urine Glucose Normal mg/dL (Normal) Labs and/or images reviewed: Labs reviewed by me Assessment/Plan Assessment/Plan Severe hypernatremia suspect secondary to decreased fluid intake Acute kidney injury suspected secondary to vasomotor nephropathy Seizure disorder Developmental delay Plan: Continuing current management. We will add the D5 W to his regimen and follow up closely with his hyponatremia. Continuing with physical therapy to get the patient out of bed and ambulate. Plan discussed with: Other (RN) Date of Service: Sep 27, 2024 Billing Provider: MINESH SAWANT MD Common Visit Codes: [id number] INP/OBS CARE(HIGH) MINESH SAWANT MD Sep 27, 2024 13:05
[2024-09-27 14:03] VITALS: BP 121/68; PULSE 64; RESP 21; TEMP 97.5; O2SAT 93
[2024-09-27 14:51] VITALS: BP 121/68; PULSE 64; RESP 21; TEMP 97.5; O2SAT 93
--- NOTE | 2024-09-28 09:53 | DVHDS2 ---
Discharge Summary Date of Admission Sep 19, 2024 at 20:58 Date of Discharge: Sep 27, 2024 Admitting Diagnosis Severe hypernatremia suspect secondary to decreased fluid intake Acute kidney injury suspected secondary to vasomotor nephropathy Seizure disorder Developmental delay Labs/Diagnostic Data: Laboratory Results Test 09/25/24 14:30 09/25/24 06:13 09/21/24 11:31 09/20/24 05:40 Sodium Level 142 mmol/L (136-145) Potassium Level 3.3 mmol/L (3.5-5.1) Chloride Level 108 mmol/L (98-107) Carbon Dioxide Level 28 mmol/L (20-31) Anion Gap 6 (5-15) Blood Urea Nitrogen 20 mg/dL (9-23) Creatinine 1.02 mg/dL (0.700-1.30) Glomerular Filtration Rate Calc 83 mL/min (>90) BUN/Creatinine Ratio 19.6 (10.0-20.0) Serum Glucose 145 mg/dL (74-106) Calcium Level 8.7 mg/dL (8.7-10.4) Magnesium Level 2.7 mg/dL (1.6-2.6) POC Glucose 103 mg/dl (70-106) White Blood Count 12.1 10^3/uL (4.4-10.8) Red Blood Count 5.14 10^6/uL (4.5-5.90) Hemoglobin 15.4 g/dL (13.5-17.5) Hematocrit 48.9 % (41.0-53.0) Mean Corpuscular Volume 95.2 fL (80.0-100.0) Mean Corpuscular Hemoglobin 29.9 pg (28.0-32.0) Mean Corpuscular Hemoglobin Concent 31.4 g/dL (32.0-36.0) Red Cell Distribution Width 15.5 % (11.8-14.3) Platelet Count 137 10^3/uL (140-450) Mean Platelet Volume 11.9 fL (6.9-10.8) Neutrophils (%) (Auto) 79.1 % (37.0-80.0) Lymphocytes (%) (Auto) 12.7 % (10.0-50.0) Monocytes (%) (Auto) 6.9 % (0.0-12.0) Eosinophils (%) (Auto) 1.1 % (0.0-7.0) Basophils (%) (Auto) 0.2 % (0.0-2.0) Neutrophils # (Auto) 9.6 10 ^3/uL (1.6-8.6) Lymphocytes # (Auto) 1.5 10 ^3/uL (0.4-5.4) Monocytes # (Auto) 0.8 10 ^3/uL (0-1.3) Eosinophils # (Auto) 0.1 10 ^3/uL (0-0.8) Basophils # (Auto) 0 10 ^3/uL (0-0.2) Nucleated Red Blood Cells 0.3 % Total Bilirubin 0.4 mg/dL (0.2-1.0) Aspartate Amino Transferase (AST) 17 U/L (13-40) Alanine Aminotransferase (ALT) 22 U/L (7-40) Alkaline Phosphatase 148 U/L (46-116) Total Protein 7.4 g/dL (5.7-8.2) Albumin 4.3 g/dL (3.2-4.8) Test 09/19/24 19:35 09/19/24 19:14 09/19/24 18:03 09/19/24 16:30 Influenza Type A Antigen Negative (Negative) Influenza Type B Antigen Negative (Negative) SARS-CoV-2 Antigen (Rapid) Negative (NEGATIVE) Troponin I High Sensitivity 7 ng/L (</=54) Urine Color Yellow (Yellow) Urine Clarity Turbid (Clear) Urine pH 5.5 (5.0-9.0) Urine Specific [place] 1.029 (1.001-1.035) Urine Protein 1+ (Negative) Urine Ketones Negative (Negative) Urine Blood Negative /uL (Negative) Urine Nitrite 2+ (Negative) Urine Bilirubin Negative (Negative) Urine Urobilinogen Normal mg/dL (Negative) Urine Leukocyte Esterase 2+ /uL (Negative) Urine RBC 3 /hpf (0 - 3) Urine WBC 25 /hpf (0 - 3) Urine Squamous Epithelial Cells Few /hpf (<5) Urine Bacteria Many /hpf (None Seen) Urine Hyaline Casts Few /lpf (0 - 2) Urine Mucus Few (None Seen) Urine Glucose Normal mg/dL (Normal) Lactic Acid Level 1.5 mmol/L (0.4-2.0) B-Type Natriuretic Peptide 14.08 pg/mL (0-100) Other Laboratory Tests 09/25/24 14:30 09/20/24 05:40 Brief Hx & Hospital Course: This is 64 years old male with mental delay, nonverbal, with past medical history seizure came to [facility] to evaluate for generalized weakness. The patient had decreased oral food and fluid intake for one week. No bowel movement and had been given laxative, prune juice, stool softener. Patient bed-bound however patient able to stand with assistance. The patient CT scan abdomen pelvis showed small large fecal ball in the rectum. The patient was admitted. Patient able to move bowel movement. The patient was empirically treated with IV antibiotic. The patient also was found to have hypernatremia due to decreased fluid intake. The patient was given free water. The patient doing much better. Less weak. The patient is able to get out of bed with help. The patient's sodium improved. The patient has started eating and drinking more. So today I am discharge the patient home. Advised the patient to follow up with primary care physician 1-2 weeks. Activity as tolerated. Diet per home diet. Physical exam: HEENT: Normocephalic atraumatic pupils equal react to light and accommodation. Extraocular muscles intact, conjunctiva pink, oropharynx moist, no thrush, no exudate. Lymphatic: No lymphadenopathy Cardiovascular exam: S1, S2 was heard. No murmurs, rubs, gallops Lung: Clear on auscultation bilaterally, no wheeze, rale, rhonchi. GI: Abdominal soft, nondistended, nontenderness, positive bowel sounds. Extremity: No crepitus, cyanosis, edema. Pedal pulses present bilateral. Full range of motion. Skin: Normal turgor, no rash. Psych: Alert, oriented x3. Neurology: No focal deficits, cranial nerve II to XII grossly intact. This medical document was created using an electronic medical record system with [employer] direct computerized dictation system. Although this document has been carefully reviewed, there may still be some phonetic and typographical errors. These areas are purely typographical due to imperfections of the software programs, and do not reflect any compromise in the patient's medical care. Condition at Discharge: Stable Final Diagnosis/Problems List Generalized Weakness Severe hypernatremia suspect secondary to decreased fluid intake Acute kidney injury suspected secondary to vasomotor nephropathy Seizure disorder Developmental delay Discharge Disposition: Home Discharge Instruct/Medications Diet: Regular Activity: Light activity Follow Up/Referral: pcp 1-2 weeks Medications: Resume home meds Discharge Statement: "Patient was advised to return to the ER or call 911 if any headaches, dizziness, shortness of breath, chest pain, abdominal pain, bleeding, fevers, or worsening of medical condition. Patient was counseled about treatment plan, medications, possible side effects, patientverbalized understanding. All questions were answered to the best of my ability. This discharge took greater then 30 minutes in planning, reviewing documentation, counseling the patient, and discussing with other team members." ASSESSMENT ASSESSMENT Assessment Generalized Weakness Date of Service: Sep 27, 2024 Billing Provider: MINESH SAWANT MD Common Visit Codes: 17533-FGL/OBS DISCH DAY >30min MINESH SAWANT MD Sep 28, 2024 09:53
== END 2024-09-27 15:00 | disposition home or self-care (01) | DRG 640 ==
LOC: EDBD 14:19 → ER 14:19 → TELE 20:58 → TELE-WESTW 09-22 12:20 → WEST WING 09-24 16:50
PROVIDERS: ADMIT Nurse Practitioner Family; ATTEND Internal Medicine
DX: E87.0 Hyperosmolality and hypernatremia (principal); N17.0 Acute kidney failure with tubular necrosis; E86.0 Dehydration; K56.41 Fecal impaction; N18.2 Chronic kidney disease, stage 2 (mild); Z20.822 Contact with and (suspected) exposure to COVID-19; G40.909 Epilepsy, unspecified, not intractable, without status epilepticus; R62.50 Unspecified lack of expected normal physiological development in childhood; Z90.5 Acquired absence of kidney; Z80.3 Family history of malignant neoplasm of breast; Z74.01 Bed confinement status; Z82.49 Family history of ischemic heart disease and other diseases of the circulatory system
CPT/HCPCS: 36415; 71045; 74176; 80048; 80053; 81001; 82962; 83605; 83735; 83880; 84295; 84484; 85025; 87426; 87804; 92610; 93005; G0378; J7042

== ENCOUNTER 2025-06-03 13:46 | Inpatient (IN) | payer OTHER, MEDICAID ==
[~2025-06-03] VITALS: Ht 177.8 cm; Wt 54.6 kg
[~2025-06-03 13:46] MED LIST changes: -LEVE250T18 PO
--- NOTE | 2025-06-03 15:06 | DVH ---
CHEST RADIOGRAPH Indication: sob Technique: Single frontal view of the chest was obtained COMPARISON: XY CHEST PORTABLE on DOS: 09/19/24, XY CHEST PORTABLE on DOS: 04/09/24, XY CHEST PORTABLE o n DOS: 03/20/24, XY CHEST PORTABLE on DOS: 10/15/23, CXRP on DOS: 11/19/22 FINDINGS: Lines and Tubes: None Lungs: Clear Pleura: No effusion. No pneumothorax. Cardiomediastinal contours: Unremarkable Bones: Unremarkable IMPRESSION: No acute disease.
--- NOTE | 2025-06-03 15:22 | ED.PDOC ---
History of Present Illness HPI Comments 64-year-old male brought by paramedics because family noticed that he was having shortness a breath. He has been having shortness breath on and off for the past few days. He is mentally challenged. Unable to get any history from the patient. Family does state that he normally does not gasp for air. He is tachycardic on arrival. Saturation pristine on room air. Chief Complaint: Confusion Time Seen by MD: 14:21 Primary Care Provider: FAMILY PRACTICE Reviewed Notes: Nurses Notes, Medications, Allergies Allergies: Coded Allergies: Gelatin (Verified Allergy, Severe, 04/12/24) "EKG pads"; rash and itching Levetiracetam (Verified Adverse Reaction, Intermediate, UNRESPONSIVE, 09/20/24) PTS MOTHER SAID WHENS SHE GAVE THE PT KEPPRA PO ONCE AT HOME THE PATIENT BECAME UNRESPONSIVE AND THEY HAD TO TAKE HIM TO THE ER IMMEDIATELY. Home Meds Active Scripts Oxcarbazepine (Trileptal) 600 Mg Tab, 0.5 TAB PO BID, #90 TAB 1 Refill Prov:PRINCESS MAYA MD 04/14/24 Midodrine Hcl (Midodrine Hcl) 10 Mg Tab, 10 MG PO DAILY, #30 TAB Prov:PRINCESS MAYA MD 11/23/22 Information Source: Relative (Mother) Mode of Arrival: Ambulatory Severity: Moderate Timing: Days Duration: Since onset Past Medical History PAST MEDICAL HISTORY: Seizures Surgical History: Hernia Repair Family History Family History: Reviewed,noncontributory to illness Social History Smoker: Non-Smoker Alcohol: Denies ETOH Use Drugs: Denies Drug Use Lives In: Home Constitutional: denies: chills, diaphoresis, fatigue, fever, malaise, sweats, weakness, others EENTM: denies: blurred vision, double vision, ear bleeding, ear discharge, ear drainage, ear pain, ear ringing, eye pain, eye redness, hearing loss, mouth pain, mouth swelling, nasal discharge, nose bleeding, nose congestion, nose pain, photophobia, tearing, throat pain, throat swelling, voice changes, others Respiratory: reports: shortness of breath; denies: cough, hemoptysis, orthopnea, SOB at rest, SOB with excertion, stridor, wheezing, others Cardiovascular: denies: chest pain, dizzy spells, diaphoresis, Dyspnea on exertion, edema, irregular heart beat, left arm pain, lightheadedness, palpitations, PND, syncope, others Gastrointestinal: denies: abdomen distended, abdominal pain, blood streaked bowels, constipated, diarrhea, dysphagia, difficulty swallowing, hematemesis, melena, nausea, poor appetite, poor fluid intake, rectal bleeding, rectal pain, vomiting, others Genitourinary: denies: burning, dysuria, flank pain, frequency, hematuria, incontinence, penile discharge, penile sore, pain, testicle pain, testicle swelling, urgency, others Neurological: denies: dizziness, fainting, headache, left sided numbness, left sided weakness, numbness, paresthesia, pre-existing deficit, right sided numbness, right sided weakness, seizure, speech problems, tingling, tremors, weakness, others Musculoskeletal: denies: back pain, gout, joint pain, joint swelling, muscle pain, muscle stiffness, neck pain, others Integumetry: denies: bruises, change in color, change in hair/nails, dryness, laceration, lesions, lumps, rash, wounds, others Allergic/Immunocompromised: denies: Difficulty Healing, Frequent Infections, Hives, Itching, others Hematologic/Lymphatic: denies: anemia, blood clots, easy bleeding, easy bruising, swollen glands, others Endocrine: denies: excessive hunger, excessive sweating, excessive thirst, excessive urination, flushing, intolerance to cold, intolerance to heat, unexplained weight gain, unexplained weight loss, others Psychiatric: denies: anxiety, bipolar disorder, depression, hopeless, panic disorder, schizophrenia, sleepless, suicidal, others Physical Exam General Appearance: Moderate Distress HEENT: Normal ENT Inspection, Pharynx Normal, TMs Normal Neck: Full Range of Motion, Non-Tender, Normal, Normal Inspection Respiratory: Chest Non-Tender, Lungs Clear, No Accessory Muscle Use, No Respiratory Distress, Normal Breath Sounds Cardiovascular: No Edema, No JVD, No Murmur, No Gallop, Normal Peripheral Pulses, Regular Rate/Rhythm Breast Exam: Deferred Gastrointestinal: No Organomegaly, Non Tender, No Pulsatile Mass, Normal Bowel Sounds, Soft Genitalia: Deferred Pelvic: Deferred Rectal: Deferred Extremities: No calf tenderness, No pedal edema Musculoskeletal : Apperance: Normal Neurologic: Other (Baseline) Cerebellar Function: NOT DONE Reflexes: NOT DONE Skin: Dry, Normal Color, Warm Peripheral Pulses: 3+ Radial (R), 3+ Radial (L) Lymphatic: No Adenopathy Was a procedure done? Was a procedure done?: No Differential Dx Considerations may include: Pneumonitis Electrolyte imbalance X-Ray, Labs, Meds, VS Vital Signs Date Time Temp Pulse Resp B/P (MAP) Pulse Ox O2 Delivery O2 Flow Rate FiO2 06/03/25 14:10 98.7 110 18 139/50 97 98.7 Time of 1ST Reevaluation: 15:21 Reevaluation 1ST: Unchanged Patient Education/Counseling: Other (Unable to comprehend) Family Education/Counseling: Diagnosis, Treatment SEPSIS Sepsis Screen Date sepsis recognized/suspect: Jun 03, 2025 Time Sepsis recognized/suspect: 1344 Recent Procedure: No On Antibiotic Therapy: No Respiratory Rate >20: No Heart Rate >90: Yes Temp<36 C (96.8 F) or >38.3 C: No SBP <90 or MAP <65 mmHG: No New Acute Mental Status Change: No Is the patient on CPAP, BIPAP,: No Physician Orders Troponin-I Hs (06/03/25 14:36) Complete Blood Count (06/03/25 14:36) Chest Portable (06/03/25 14:36) Urinalysis (06/03/25 14:36) Basic Metabolic Panel (06/03/25 14:36) Sodium Chloride 0.9% (06/03/25 14:45) Sodium Chloride 0.9% (06/03/25 14:45) Vital Signs Date Time Temp Pulse Resp B/P (MAP) Pulse Ox O2 Delivery O2 Flow Rate FiO2 06/03/25 14:10 98.7 110 18 139/50 97 98.7 Departure 1 Departure Time of Disposition: 15:21 Impression: Primary Impression: Pneumonitis Disposition: 09 ADMITTED INPATIENT Admit to: Med Surg Condition: Guarded Critical Care Note Critical Care Time?: No Stability Stability form required: No Heart Score Heart Score: Heart Score Response (Comments) Value History N/A 0 EKG N/A 0 Age N/A 0 Risk Factors N/A 0 Troponin N/A 0 Total 0 ELY PEREZ MD Jun 03, 2025 15:22
[2025-06-03] MEDS: IPRATROPIUM BROM 0.5 MG/2.5ML INH SOL NEB ONE (15:42)
[2025-06-03] MEDS: ALBUTEROL SULF 2.5 MG/0.5ML(0.5%) NEB SOLN NEB ONE (15:43)
[2025-06-03 15:45] LABS: Hematocrit 39.7 % (41.0-53.0); Hemoglobin 12.9 g/dL (13.5-17.5); Mean Corpuscular Hemoglobin 30.7 pg (28.0-32.0); Mean Corpuscular Volume 94.6 fL (80.0-100.0); Nucleated Red Blood Cells % 0.8 %
[2025-06-03 15:52] LABS: Potassium 3.9 mmol/L (3.5-5.1); Sodium 144 mmol/L (136-145)
[2025-06-03 15:53] LABS: Anion Gap 11 (5-15); Carbon Dioxide 23 mmol/L (20-31)
[2025-06-03 15:54] LABS: Calcium 9.0 mg/dL (8.7-10.4)
[2025-06-03 15:58] LABS: BUN/Creatinine Ratio 20.0 (10.0-20.0); Blood Urea Nitrogen 19 mg/dL (9-23)
[2025-06-03 16:01] LABS: Chloride 110 mmol/L (98-107); Glucose 127 mg/dL (74-106)
[2025-06-03 19:14] VITALS: PULSE 65; RESP 19; O2SAT 95
[2025-06-03] MEDS: methylPREDNISolone SOD SUCC 125 MG/2 ML VL IV ONE (21:56)
[2025-06-03] MEDS ORDERED: IPRATROPIUM BROM 0.5 MG/2.5ML INH SOL NEB PRN (22:30)
[2025-06-03] MEDS ORDERED: ONDANSETRON HCL 4 MG/2 ML VIAL IV PRN (22:30)
[2025-06-03] MEDS ORDERED: DOCUSATE SOD 100 MG CAP PO PRN (22:30)
[2025-06-03] MEDS ORDERED: ALBUTEROL SULF 2.5 MG/0.5ML(0.5%) NEB SOLN NEB PRN (22:30)
[2025-06-03 22:37] VITALS: BP 100/58; PULSE 118; RESP 20; O2SAT 96
[2025-06-03] MEDS: ACETAMINOPHEN 325 MG TAB PO PRN (22:43)
[2025-06-03] MEDS: cefTRIAXone 1GM/50ML D5W 50 ML IV ONE (22:53)
[2025-06-03] MEDS: AZITHROMYCIN 500MG/ 250ML 250 ML IV ONE (22:53)
[2025-06-03] MEDS: ACETAMINOPHEN IV 1000 MG/100ML (10MG/ML) IV ONE (23:00)
[2025-06-03 23:01] LABS: Hematocrit 37.0 % (41.0-53.0); Hemoglobin 12.2 g/dL (13.5-17.5); Mean Corpuscular Hemoglobin 30.6 pg (28.0-32.0); Mean Corpuscular Volume 92.6 fL (80.0-100.0); Nucleated Red Blood Cells % 0.1 %
[2025-06-03] MEDS: SODIUM CHLORIDE 0.9% 1,000 ML IV ONE ×2 (23:10→23:49)
[2025-06-03 23:18] LABS: Alanine Aminotransferase 33 U/L (7-40); Albumin 4.0 g/dL (3.2-4.8); Alkaline Phosphatase 89 U/L (46-116); Anion Gap 12 (5-15); BUN/Creatinine Ratio 22.2 (10.0-20.0); Calcium 9.0 mg/dL (8.7-10.4); Carbon Dioxide 23 mmol/L (20-31); Potassium 4.2 mmol/L (3.5-5.1); Sodium 144 mmol/L (136-145); Total Protein 6.8 g/dL (5.7-8.2)
[2025-06-03 23:20] LABS: Bilirubin, Total 0.3 mg/dL (0.2-1.0); Blood Urea Nitrogen 24 mg/dL (9-23); Chloride 109 mmol/L (98-107); Glucose 122 mg/dL (74-106)
[2025-06-03 23:22] LABS: INR 1.13 (0.9-1.15); Partial Thromboplastin Time 29.1 SEC (24.5-34.5); Prothrombin Time 11.8 sec (9.3-11.8)
--- NOTE | 2025-06-03 23:34 | DVHHP2 ---
History of Present Illness Reason for Visit: Acute respiratory distress History of Present Illness The patient is a 64-year-old male mentally challenge with past medical history of seizures who presented to [facility] ED with complaint of shortness of breaths. As reported by family patient was having intermittent sh ortness of breaths, noticed patient gasp for air, tachycardia, so EMS were called. Patient was seen and evaluated in the ED, laboratory data shows WBC 3.8, hemoglobin 12.9, hematocrit 39.7, platelets 130, sodium 144, potassium 3.9, BUN 19, creatinine 0.95, glucose 127, calcium 9.0, troponin 84, blood pressure 100/58, heart rate 132 trending down to 114, temperature 103.0 F trending down to 99.1 F O2 saturation 96% on oxygen. Chest x-ray showed no acute disease. Patient was started on IV antibiotic regimen Rocephin, please see medication orders section in the computer. On my assessment, patient remains confused, no dizziness, no diaphoresis, no nausea, no vomiting, no fever, no chills. Patient was admitted for further evaluation and medical management. Past Medical History Seizures Past Surgical History Hernia Repair Family History Reviewed, noncontributory to the management of this case. Past Social History The patient lives at home, denies smoking, alcohol or illicit drugs abuse. Review of Systems Constitutional: Yes: Weakness; No: Fever, Chills, Sweats, Malaise, Other Eyes: No: Pain, Vision change, Conjunctivae inflammation, Eyelid inflammation, Other, Redness ENT: No: Ear pain, Ear discharge, Nose pain, Nose discharge, Nose congestion, Mouth pain, Mouth swelling, Throat pain, Throat swelling, Other Respiratory: Shortness of breath; No: Cough, Dry, SOB with excertion, Wheezing, Hemoptysis, Pleuritic Pain, Sputum, Wheezing, Other Cardiovascular: No: Chest Pain, Palpitations, Orthopnea, Paroxysmal Noc. Dyspnea, Edema, Lt Headedness, Other Gastrointestinal: No: Nausea, Vomiting, Abdominal Pain, Diarrhea, Constipation, Melena, Hematochezia, Other Genitourinary: No Dysuria, No Frequency, No Incontinence, No Hematuria, No Ret ention, No Other Musculoskeletal: No: other, neck pain, shoulder pain, arm pain, back pain, hand pain, leg pain, foot pain Skin: No: Rash, Lesions, Jaundice, Bruising, Other Neurological: Seizures; No: Weakness, Numbness, Incoordination, Change in speech, Confusion, Other Allergies: Coded Allergies: Gelatin (Verified Allergy, Severe, 04/12/24) "EKG pads"; rash and itching Levetiracetam (Verified Adverse Reaction, Intermediate, UNRESPONSIVE, 09/20/24) PTS MOTHER SAID WHENS SHE GAVE THE PT KEPPRA PO ONCE AT HOME THE PATIENT BECAME UNRESPONSIVE AND THEY HAD TO TAKE HIM TO THE ER IMMEDIATELY. Medications Current Medications Medications Dose Ordered Sig/Efrem Route Start Time Stop Time Status Last Admin Dose Admin Cefepime HCl 50 ml @ 12.5 mls/hr Q8HR IV 06/04/25 06:00 Albuterol 2.5 mg Q4HPRN PRN NEB 06/03/25 22:30 Ipratropium [place] 0.5 mg Q4HPRN PRN NEB 06/03/25 22:30 Famotidine 20 mg Q12HR IV 06/04/25 10:00 Methylprednisolone Sodium Succinate 40 mg BID IV 06/04/25 10:00 Oxcarbazepine 600 mg Q12HR PO 06/04/25 10:00 Sodium Chloride 10 ml Q8HR IV 06/04/25 06:00 Acetaminophen/ Hydrocodone Bitart 1 tab Q4HP PRN PO 06/03/25 22:30 Ondansetron HCl 4 mg Q4HP PRN IV 06/03/25 22:30 Docusate Sodium 100 mg BIDPRN PRN PO 06/03/25 22:30 Acetaminophen 650 mg Q6HP PRN PO 06/03/25 22:30 Aspirin 81 mg DAILY PO 06/04/25 10:00 Lactated Ringer's 1,000 ml @ 100 mls/hr Q10H IV 06/03/25 22:45 Exam Vital Signs Vital Signs Date Time Temp Pulse Resp B/P (MAP) Pulse Ox O2 Delivery O2 Flow Rate FiO2 06/03/25 22:43 103.6 06/03/25 22:37 118 20 100/58 96 21 06/03/25 19:14 Room Air* 0 General Appearance: Alert, Cooperative, No acute distress, Other (Oriented x1) HEENT: Atraumatic, PERRLA, EOMI, Mucous membr. moist/pink Respiratory: Normal air movement Cardiovascular: Regular rate, Normal S1, Normal S2, No murmurs Abdominal: Normal bowel sounds, Soft, No tenderness, No hepatospenomegaly, No masses Extremities: No clubbing, No cyanosis, No edema, Normal pulses, No tenderness/swelling Skin: No rashes, No breakdown, No significant lesion Neuro: Normal speech, Normal tone, Sensation intact, Cranial nerves 3-12 NL, Reflexes 2+, Other (Generalized weakness) Psych/Mental Status: Mood NL, Other (Altered mental status) Labs/Xrays Labs Test 06/03/25 22:38 06/03/25 15:32 Range/Units White Blood Count 12.4 #H 4.4-10.8 10^3/uL Red Blood Count 4.00 L 4.5-5.90 10^6/uL Hemoglobin 12.2 L 13.5-17.5 g/dL Hematocrit 37.0 L 41.0-53.0 % Mean Corpuscular Volume 92.6 80.0-100.0 fL Mean Corpuscular Hemoglobin 30.6 28.0-32.0 pg Mean Corpuscular Hemoglobin Concent 33.0 32.0-36.0 g/dL Red Cell Distribution Width 13.8 11.8-14.3 % Platelet Count 90 L 140-450 10^3/uL Mean Platelet Volume 9.7 6.9-10.8 fL Neutrophils (%) (Auto) 90.2 H 37.0-80.0 % Lymphocytes (%) (Auto) 1.4 L 10.0-50.0 % Monocytes (%) (Auto) 8.3 0.0-12.0 % Eosinophils (%) (Auto) 0.1 0.0-7.0 % Basophils (%) (Auto) 0.0 0.0-2.0 % Neutrophils # (Auto) 11.2 H 1.6-8.6 10 ^3/uL Lymphocytes # (Auto) 0.2 L 0.4-5.4 10 ^3/uL Monocytes # (Auto) 1.0 0-1.3 10 ^3/uL Eosinophils # (Auto) 0 0-0.8 10 ^3/uL Basophils # (Auto) 0 0-0.2 10 ^3/uL Nucleated Red Blood Cells 0.1 % Prothrombin Time 11.8 9.3-11.8 sec Prothrombin Time INR 1.13 0.9-1.15 Activated Partial Thromboplast Time 29.1 24.5-34.5 SEC Sodium Level 144 136-145 mmol/L Potassium Level 4.2 3.5-5.1 mmol/L Chloride Level 109 H 98-107 mmol/L Carbon Dioxide Level 23 20-31 mmol/L Anion Gap 12 5-15 Blood Urea Nitrogen 24 H 9-23 mg/dL Creatinine 1.08 0.700-1.30 mg/dL Glomerular Filtration Rate Calc 77 >90 mL/min BUN/Creatinine Ratio 22.2 H 10.0-20.0 Serum Glucose 122 H 74-106 mg/dL Calcium Level 9.0 8.7-10.4 mg/dL Total Bilirubin 0.3 0.2-1.0 mg/dL Aspartate Amino Transferase (AST) 39 13-40 U/L Alanine Aminotransferase (ALT) 33 7-40 U/L Alkaline Phosphatase 89 46-116 U/L Total Protein 6.8 5.7-8.2 g/dL Albumin 4.0 3.2-4.8 g/dL Troponin I High Sensitivity 84 *H </=54 ng/L PATIENT: JULIO DING ACCT: [id number] UNIT: [id number] : 1960 LOC: ER ROOM / BED: / AGE / SEX: 64 / M ADM STATUS: REG ER SERVICE 1436 ORDERING PHYSICIAN: ELY PEREZ MD PROCEDURE(s): CXRP - CHEST PORTABLE REASON: sob ORDER NUMBER(s): [id number], ACCESSION NUMBER(s): [id number] CHEST RADIOGRAPH Indication: sob Technique: Single frontal view of the chest was obtained COMPARISON: XY CHEST PORTABLE on DOS: 09/19/24, XY CHEST PORTABLE on DOS: 04/09/24, XY CHEST PORTABLE on DOS: 03/20/24, XY CHEST PORTABLE on DOS: 10/15/23, CXRP on DOS: 11/19/22 FINDINGS: Lines and Tubes: None Lungs: Clear Pleura: No effusion. No pneumothorax. Cardiomediastinal contours: Unremarkable Bones: Unremarkable IMPRESSION: No acute disease. SEPSIS Sepsis Screen Date sepsis recognized/suspect: Jun 03, 2025 Time Sepsis recognized/suspect: 143 Recent Procedure: No On Antibiotic Therapy: No Respiratory Rate >20: No Heart Rate >90: No Temp<36 C (96.8 F) or >38.3 C: No SBP <90 or MAP <65 mmHG: No New Acute Mental Status Change: No Is the patient on CPAP, BIPAP,: No Physician Orders Resaw Tailer (06/03/25 ) Lloyd Catheters (06/03/25 ) Rapid Influenza A&B (06/03/25 22:09) Covid19 Antigen Yenny (06/03/25 ) Accucheck (06/03/25 22:09) Blood Culture (06/03/25 22:09) Lactic Acid W/ Reflex Order (06/04/25 00:00) Lactic Acid W/ Reflex Order (06/04/25 02:00) Cefepime 1gm/ 50ml (Maxipime 1gm/50ml) (06/04/25 06:00) Notify Md If Map <65 Or Bp<90 (06/03/25 22:09) If Map<65 Start Vasopressor (06/03/25 22:09) Sepsis Reassesment After Fluid (06/03/25 23:09) Albuterol Medneb (Ventolin Medneb) (06/03/25 22:30) Ipratropium Medneb (Atrovent Medneb) (06/03/25 22:30) Famotidine Injection (Pepcid Injection) (06/04/25 10:00) Methylprednisolone Sod Succ (Solu Medrol (06/04/25 10:00) Oxcarbazepine Tablet (Trileptal Tablet) (06/04/25 10:00) Allergies (06/03/25 22:20) Code Status (06/03/25 22:20) Sodium Chloride Lock (Saline Lock Ns) (06/04/25 06:00) Oxygen Per Hour (06/03/25 22:20) Hydrocodone-Acet 5/325mg Tab ([place] 32 (06/03/25 22:30) Ondansetron Hcl (Zofran) (06/03/25 22:30) Docusate Sodium Capsule (Colace Capsule) (06/03/25 22:30) Fall Risk Precautions In Place QSHIFT (06/03/25 22:20) Complete Blood Count (06/04/25 04:00) Comprehensive Metabolic Panel (06/04/25 04:00) Cardiac Diet-2gna,Lofat,Lochol (06/04/25 Breakfast) Condition: Serious (06/03/25 22:20) Acetaminophen Tablet (Tylenol Tablet) (06/03/25 22:30) Maintain Bed Rest (06/03/25 22:20) Sequential Compression Device (06/03/25 ) Aspirin Tablet (06/04/25 10:00) Lactated Ringer's (06/03/25 22:45) Vital Signs Date Time Temp Pulse Resp B/P (MAP) Pulse Ox O2 Delivery O2 Flow Rate FiO2 06/03/25 22:43 103.6 06/03/25 22:37 118 20 100/58 96 21 06/03/25 20:00 114 26 100/58 (72) 96 06/03/25 20:00 114 06/03/25 19:14 114 22 106/64 (78) 96 06/03/25 19:14 65 19 95 Room Air* 0 21 06/03/25 18:30 111 20 111/65 (80) 95 06/03/25 16:30 132 20 118/68 (85) 92 06/03/25 15:44 26 98 Room Air* 0 21 Laboratory Tests Test 06/03/25 15:32 06/03/25 22:38 White Blood Count 3.8 10^3/uL (4.4-10.8) L 12.4 10^3/uL (4.4-10.8) #H Medications Medications Dose Ordered Sig/Efrem Route Start Time Stop Time Status Last Admin Dose Admin Acetaminophen 1,000 mg ONCE ONCE IV 06/03/25 22:45 06/03/25 22:46 DC 06/03/25 23:00 1,000 MG Albuterol 5 mg ONCE ONCE NEB 06/03/25 15:30 06/03/25 15:31 DC 06/03/25 15:43 5 MG Ipratropium [place] 0.5 mg ONCE ONCE NEB 06/03/25 15:30 06/03/25 15:31 DC 06/03/25 15:42 0.5 MG Methylprednisolone Sodium Succinate 125 mg ONCE ONCE IV 06/03/25 15:30 06/03/25 15:31 DC 06/03/25 21:56 125 MG Sodium Chloride 1,000 ml @ 1,000 mls/hr Q1H ONCE IV 06/03/25 14:45 06/03/25 15:44 DC 06/03/25 23:10 1,000 MLS/HR Assessment/Plan Assessment/Plan Acute respiratory distress Fever, unspecified Confusion state Generalized weakness Plan 1. Admit to telemetry unit 2. Breathing treatment 3. Pain control management 4. IV antibiotic management 5. Management of fluids and electrolytes 6. Consultation for hospitalist 7. Diagnostic test chest x-ray 8. DVT prophylaxis on aspirin 9. Repeat labs CBC, CMP in a.m. 10. Home medication reviewed and reconciled 11. Continue with current medical management 12. Treatment plan discussed with patient and RN. Patient verbalized understanding. Plan discussed with: Patient, Other (RN) My Orders Orders - AL WRIGHT DNP Procedure Category Date Status Time Albuterol Medneb PHA 06/03/25 In Process (Ventolin Medneb) 22:30 Ipratropium Medneb PHA 06/03/25 In Process (Atrovent Medneb) 22:30 Famotidine Injection PHA 06/04/25 In Process (Pepcid Injection) 10:00 Methylprednisolone PHA 06/04/25 In Process Sod Succ (Solu Medrol 10:00 Oxcarbazepine Tablet PHA 06/04/25 In Process (Trileptal Tablet) 10:00 Allergies CHERYL 06/03/25 In Process 22:20 Code Status CODE 06/03/25 Transmitted 22:20 Sodium Chloride Lock PHA 06/04/25 In Process (Saline Lock Ns) 06:00 Oxygen Per Hour RT 06/03/25 Transmitted 22:20 Hydrocodone-Acet PHA 06/03/25 In Process 5/325mg Tab ([place] 22:30 Ondansetron Hcl PHA 06/03/25 In Process (Zofran) 22:30 Docusate Sodium PHA 06/03/25 In Process Capsule (Colace 22:30 Fall Risk Precautions CHERYL 06/03/[address] 22:20 Complete Blood Count LAB 06/04/25 Verified 04:00 Comprehensive LAB 06/04/25 Verified Metabolic Panel 04:00 Cardiac DIET 06/04/25 Transmitted Diet-2gna,Lofat,Lochol Breakfast Condition: Serious CHERYL 06/03/25 In Process 22:20 Acetaminophen Tablet PHA 06/03/25 In Process (Tylenol Tablet) 22:30 Maintain Bed Rest CHERYL 06/03/25 In Process 22:20 Sequential CHERYL 06/03/25 In Process Compression Device Aspirin Tablet PHA 06/04/25 In Process 10:00 Lactated Ringer's PHA 06/03/25 In Process 22:45 Problem List: (1) Acute respiratory distress (2) Fever, unspecified (3) Confusion state (4) Generalized weakness Date of Service: Jun 03, 2025 Billing Provider: AL WRIGHT DNP Common Visit Codes: [id number] INP/OBS CARE (HIGH) AL WRIGHT DNP Jun 03, 2025 23:34
[2025-06-03] MEDS ORDERED: MORPHINE SULFATE INJ 2 MG/ml SYRG IV PRN (23:45)
[2025-06-03] MEDS ORDERED: NITROGLYCERIN 0.4 MG SL TAB SL PRN (23:45)
[2025-06-03] MEDS: LACTATED RINGER'S 2,200 ML IV ONE (23:50)
[2025-06-04] VITALS (10 sets, daily range): BP systolic 98–121; BP diastolic 59–83; PULSE 82–95; RESP 19–20; TEMP 97.4–99.4; O2SAT 94–99
[2025-06-04 00:07] LABS: Urine Protein, UAD TRACE (Negative)
[2025-06-04] MEDS: LACTATED RINGER'S 1,000 ML IV SCH (00:19)
[2025-06-04 00:24] LABS: Lactic Acid w/Reflex 4.6 mmol/L (0.4-2.0)
[2025-06-04] MEDS: HEPARIN SODIUM (PORCINE) 5000 UNITS/ML 1ML VIAL SC ONE (00:30)
[2025-06-04 00:33] LABS: COVID19 ANTIGEN SOFIA FIA NEGATIVE (NEGATIVE)
[2025-06-04] MEDS: cefTRIAXone 1GM/50ML D5W 50 ML IV ONE (00:39)
[2025-06-04] MEDS: MIDODRINE HCL 10 MG TAB PO SCH (01:31)
[2025-06-04] MEDS: CEFEPIME 1GM/ 50ML 50 ML IV SCH (05:16)
[2025-06-04] MEDS: SODIUM CHLOR 0.9% PF (SALINE LOCK) 10ML VIAL/SYR IV SCH (05:16)
[2025-06-04] MEDS: cefTRIAXone 1GM/50ML D5W 50 ML IV SCH (10:36)
[2025-06-04] MEDS: methylPREDNISolone SOD SUCC 40 MG/ML VL IV SCH (10:36)
[2025-06-04] MEDS: FAMOTIDINE (10MG/ML) 2ML VL IV SCH (10:37)
[2025-06-04 10:50] LABS: Hematocrit 36.8 % (41.0-53.0); Hemoglobin 11.9 g/dL (13.5-17.5); Mean Corpuscular Hemoglobin 30.4 pg (28.0-32.0); Mean Corpuscular Volume 93.9 fL (80.0-100.0)
[2025-06-04 11:07] LABS: Alanine Aminotransferase 53 U/L (7-40); Albumin 3.9 g/dL (3.2-4.8); Alkaline Phosphatase 70 U/L (46-116); Anion Gap 12 (5-15); BUN/Creatinine Ratio 22.1 (10.0-20.0); Blood Urea Nitrogen 21 mg/dL (9-23); Calcium 8.9 mg/dL (8.7-10.4); Carbon Dioxide 23 mmol/L (20-31); Chloride 109 mmol/L (98-107); Glucose 135 mg/dL (74-106); Potassium 4.6 mmol/L (3.5-5.1); Sodium 144 mmol/L (136-145); Total Protein 6.3 g/dL (5.7-8.2)
[2025-06-04 11:09] LABS: Bilirubin, Total 0.2 mg/dL (0.2-1.0)
[2025-06-04 12:48] LABS: Total Cells Counted 100.0 (100)
--- NOTE | 2025-06-04 12:54 | DVHPN2 ---
Reviewed: Care Plan, H&P, Labs, Medications, Previous Orders, Radiology Changes from previous H/P or p: No Changes Eyes: No Pain, No Vision change, No Conjunctivae inflammation, No Eyelid inflammation, No Other, No Redness ENT: No Ear pain, No Ear discharge, No Nose pain, No Nose discharge, No Nose congestion, No Mouth pain, No Mouth swelling, No Throat pain, No Throat swelling, No Other Cardiovascular: No Chest Pain, No Palpitations, No Orthopnea, No Paroxysmal Noc. Dyspnea, No Edema, No Lt Headedness, No Other Respiratory: No Cough, No Dry; Shortness of breath; No SOB with excertion, No Wheezing, No Hemoptysis, No Pleuritic Pain, No Sputum, No Other Gastrointestinal: No Nausea, No Vomiting, No Abdominal Pain, No Diarrhea, No Constipation, No Melena, No Hematochezia, No Other Genitourinary: No Dysuria, No Frequency, No Incontinence, No Hematuria, No Retention, No Other Musculoskeletal: No other, No neck pain, No shoulder pain, No arm pain, No back pain, No hand pain, No leg pain, No foot pain Skin: No Rash, No Lesions, No Jaundice, No Bruising, No Other Objective Vitals Vital Signs Date Time Temp Pulse Resp B/P (MAP) Pulse Ox O2 Delivery O2 Flow Rate FiO2 06/04/25 08:39 98.3 92 20 121/83 (96) 94 98.3 06/04/25 07:43 Room Air 06/04/25 07:43 0 21 Intake/Output Intake and Output 06/04/25 07:00 Intake Total 2050 ml Output Total 250 ml Balance 1800 ml Intake IV Total 2050 ml Output Urine Total 250 ml # Bowel Movements 2 Medications Current Medications Medications Dose Ordered Sig/Efrem Route Start Time Stop Time Status Last Admin Dose Admin Albuterol 2.5 mg Q4HPRN PRN NEB 06/03/25 22:30 Ipratropium [place] 0.5 mg Q4HPRN PRN NEB 06/03/25 22:30 Famotidine 20 mg Q12HR IV 06/04/25 10:00 06/04/25 10:37 20 MG Methylprednisolone Sodium Succinate 40 mg BID IV 06/04/25 10:00 06/04/25 10:36 40 MG Oxcarbazepine 600 mg Q12HR PO 06/04/25 10:00 06/04/25 10:38 600 MG Sodium Chloride 10 ml Q8HR IV 06/04/25 06:00 06/04/25 05:16 10 ML Acetaminophen/ Hydrocodone Bitart 1 tab Q4HP PRN PO 06/03/25 22:30 Ondansetron HCl 4 mg Q4HP PRN IV 06/03/25 22:30 Docusate Sodium 100 mg BIDPRN PRN PO 06/03/25 22:30 Acetaminophen 650 mg Q6HP PRN PO 06/03/25 22:30 Aspirin 81 mg DAILY PO 06/04/25 10:00 Lactated Ringer's 1,000 ml @ 100 mls/hr Q10H IV 06/03/25 22:45 06/04/25 00:19 100 MLS/HR Nitroglycerin 0.4 mg Q5MINP PRN SL 06/03/25 23:45 Morphine Sulfate 2 mg Q30M PRN IV 06/03/25 23:45 Ceftriaxone Sodium 50 ml @ 100 mls/hr DAILY@09 IV 06/04/25 09:00 06/04/25 10:36 100 MLS/HR Midodrine 10 mg TID@0600,1200,1800 PO 06/04/25 06:00 06/04/25 01:31 10 MG Laboratory Results Laboratory Tests 06/04/25 10:15 Chemistry Test 06/03/25 15:32 06/03/25 22:38 06/04/25 10:15 Calcium Level 9.0 mg/dL (8.7-10.4) 9.0 mg/dL (8.7-10.4) 8.9 mg/dL (8.7-10.4) Albumin 4.0 g/dL (3.2-4.8) 3.9 g/dL (3.2-4.8) Total Protein 6.8 g/dL (5.7-8.2) 6.3 g/dL (5.7-8.2) Coagulation Test 06/03/25 22:38 Prothrombin Time 11.8 sec (9.3-11.8) Prothrombin Time INR 1.13 (0.9-1.15) Activated Partial Thromboplast Time 29.1 SEC (24.5-34.5) LFT Test 06/03/25 22:38 06/04/25 10:15 Alanine Aminotransferase (ALT) 33 U/L (7-40) 53 U/L (7-40) H Alkaline Phosphatase 89 U/L (46-116) 70 U/L (46-116) Aspartate Amino Transferase (AST) 39 U/L (13-40) 70 U/L (13-40) H Total Bilirubin 0.3 mg/dL (0.2-1.0) 0.2 mg/dL (0.2-1.0) Urinalysis Test 06/03/25 23:13 Urine Color Yellow (Yellow) Urine Clarity Turbid (Clear) H Urine pH 5.5 (5.0-9.0) Urine Specific [place] 1.019 (1.001-1.035) Urine Protein Trace (Negative) H Urine Ketones Negative (Negative) Urine Blood 1+ /uL (Negative) H Urine Nitrite 2+ (Negative) H Urine Bilirubin Negative (Negative) Urine Urobilinogen Normal mg/dL (Negative) Urine Leukocyte Esterase 1+ /uL (Negative) Urine RBC 6 /hpf (0 - 3) Urine Microscopic WBC 9 /HPF (0-3) H Urine Squamous Epithelial Cells Few /hpf (<5) Urine Bacteria Mod /hpf (None Seen) H Urine Mucus Few (None Seen) Urine Glucose Normal mg/dL (Normal) Labs and/or images reviewed: Labs reviewed by me, Image(s) reviewed by me Assessment/Plan Assessment/Plan Acute hypoxic respiratory failure: Oxygen by nasal cannula Possible community-acquired aspiration pneumonia: Rocephin azithromycin History of seizures: Continue home medications Acute generalized weakness Flu test negative COVID test neg Plan discussed with: Patient Date of Service: Jun 04, 2025 Billing Provider: PRINCESS MAYA MD Common Visit Codes: [id number] INP/OBS CARE(HIGH) PRINCESS MAYA MD Jun 04, 2025 12:54
[2025-06-04] MEDS: AZITHROMYCIN 500MG/ 250ML 250 ML IV ONE (18:16)
[2025-06-05] VITALS (9 sets, daily range): BP systolic 100–138; BP diastolic 66–83; PULSE 54–91; RESP 15–20; TEMP 97.6–99; O2SAT 95–99
--- NOTE | 2025-06-05 09:56 | DVHPN2 ---
Reviewed: Care Plan, H&P, Labs, Medications, Previous Orders, Radiology Changes from previous H/P or p: No Changes Eyes: No Pain, No Vision change, No Conjunctivae inflammation, No Eyelid inflammation, No Other, No Redness ENT: No Ear pain, No Ear discharge, No Nose pain, No Nose discharge, No Nose congestion, No Mouth pain, No Mouth swelling, No Throat pain, No Throat swelling, No Other Cardiovascular: No Chest Pain, No Palpitations, No Orthopnea, No Paroxysmal Noc. Dyspnea, No Edema, No Lt Headedness, No Other Respiratory: No Cough, No Dry; Shortness of breath; No SOB with excertion, No Wheezing, No Hemoptysis, No Pleuritic Pain, No Sputum, No Other Gastrointestinal: No Nausea, No Vomiting, No Abdominal Pain, No Diarrhea, No Constipation, No Melena, No Hematochezia, No Other Genitourinary: No Dysuria, No Frequency, No Incontinence, No Hematuria, No Retention, No Other Musculoskeletal: No other, No neck pain, No shoulder pain, No arm pain, No back pain, No hand pain, No leg pain, No foot pain Skin: No Rash, No Lesions, No Jaundice, No Bruising, No Other Objective Vitals Vital Signs Date Time Temp Pulse Resp B/P (MAP) Pulse Ox O2 Delivery O2 Flow Rate FiO2 06/05/25 09:00 98.3 79 17 115/83 (94) 96 98.3 06/05/25 07:52 Room Air* 0 21 Intake/Output Intake and Output 06/05/25 07:00 Intake Total 125 ml Output Total 1050 ml Balance -925 ml Intake Oral 75 ml IV Total 50 ml Output Urine Total 1050 ml # Bowel Movements 3 Medications Current Medications Medications Dose Ordered Sig/Efrem Route Start Time Stop Time Status Last Admin Dose Admin Albuterol 2.5 mg Q4HPRN PRN NEB 06/03/25 22:30 Ipratropium [place] 0.5 mg Q4HPRN PRN NEB 06/03/25 22:30 Famotidine 20 mg Q12HR IV 06/04/25 10:00 06/05/25 09:17 20 MG Methylprednisolone Sodium Succinate 40 mg BID IV 06/04/25 10:00 06/05/25 09:16 40 MG Oxcarbazepine 600 mg Q12HR PO 06/04/25 10:00 06/05/25 09:15 600 MG Sodium Chloride 10 ml Q8HR IV 06/04/25 06:00 06/05/25 05:49 10 ML Acetaminophen/ Hydrocodone Bitart 1 tab Q4HP PRN PO 06/03/25 22:30 Ondansetron HCl 4 mg Q4HP PRN IV 06/03/25 22:30 Docusate Sodium 100 mg BIDPRN PRN PO 06/03/25 22:30 Acetaminophen 650 mg Q6HP PRN PO 06/03/25 22:30 Aspirin 81 mg DAILY PO 06/04/25 10:00 Lactated Ringer's 1,000 ml @ 100 mls/hr Q10H IV 06/03/25 22:45 06/05/25 01:29 100 MLS/HR Nitroglycerin 0.4 mg Q5MINP PRN SL 06/03/25 23:45 Morphine Sulfate 2 mg Q30M PRN IV 06/03/25 23:45 Ceftriaxone Sodium 50 ml @ 100 mls/hr DAILY@09 IV 06/04/25 09:00 06/05/25 09:17 100 MLS/HR Midodrine 10 mg TID@0600,1200,1800 PO 06/04/25 06:00 06/04/25 12:56 10 MG Azithromycin 250 ml @ 125 mls/hr DAILY IV 06/05/25 10:00 Laboratory Results Laboratory Tests 06/04/25 10:15 Chemistry Test 06/04/25 10:15 Albumin 3.9 g/dL (3.2-4.8) Calcium Level 8.9 mg/dL (8.7-10.4) Total Protein 6.3 g/dL (5.7-8.2) LFT Test 06/04/25 10:15 Alanine Aminotransferase (ALT) 53 U/L (7-40) H Alkaline Phosphatase 70 U/L (46-116) Aspartate Amino Transferase (AST) 70 U/L (13-40) H Total Bilirubin 0.2 mg/dL (0.2-1.0) Urinalysis Test 06/03/25 23:13 Urine Color Yellow (Yellow) Urine Clarity Turbid (Clear) H Urine pH 5.5 (5.0-9.0) Urine Specific [place] 1.019 (1.001-1.035) Urine Protein Trace (Negative) H Urine Ketones Negative (Negative) Urine Blood 1+ /uL (Negative) H Urine Nitrite 2+ (Negative) H Urine Bilirubin Negative (Negative) Urine Urobilinogen Normal mg/dL (Negative) Urine Leukocyte Esterase 1+ /uL (Negative) Urine RBC 6 /hpf (0 - 3) Urine Microscopic WBC 9 /HPF (0-3) H Urine Squamous Epithelial Cells Few /hpf (<5) Urine Bacteria Mod /hpf (None Seen) H Urine Mucus Few (None Seen) Urine Glucose Normal mg/dL (Normal) Microbiology Microbiology Date/Time Source Procedure Growth Status 06/03/25 22:38 Blood Blood Culture - Preliminary NO GROWTH AFTER 24 HOURS OF INCUBATION. Resulted Labs and/or images reviewed: Labs reviewed by me, Image(s) reviewed by me Assessment/Plan Assessment/Plan Sepsis secondary to community-acquired pneumonia white count 21 K, will DC Solu-Medrol Acute hypoxic respiratory failure: Oxygen by nasal cannula Possible community-acquired aspiration pneumonia: Rocephin azithromycin History of seizures: Continue home medications Acute generalized weakness Flu test negative COVID test neg Plan discussed with: Patient My Orders Orders - PRINCESS MAYA MD Procedure Category Date Status Time Azithromycin 500mg/ PHA 06/05/25 In Process 250ml (Zithromax 50 10:00 Date of Service: Jun 05, 2025 Billing Provider: PRINCESS MYAA MD Common Visit Codes: [id number] INP/OBS CARE(HIGH) PRINCESS MAYA MD Jun 05, 2025 09:56
[2025-06-05] MEDS: AZITHROMYCIN 500MG/ 250ML 250 ML IV SCH (11:07)
[2025-06-05] MEDS: HYDROcodone-ACET 5/325MG TAB PO PRN (23:57)
[2025-06-06 01:00] VITALS: BP 112/65; PULSE 66; RESP 20; TEMP 98.9; O2SAT 98
[2025-06-06 05:00] VITALS: BP 126/81; PULSE 67; RESP 20; TEMP 98; O2SAT 94
[2025-06-06 07:35] LABS: Hematocrit 34.7 % (41.0-53.0); Hemoglobin 11.3 g/dL (13.5-17.5); Mean Corpuscular Hemoglobin 30.6 pg (28.0-32.0); Mean Corpuscular Volume 93.6 fL (80.0-100.0); Nucleated Red Blood Cells % 0.0 %
[2025-06-06 09:00] VITALS: BP 123/84; PULSE 64; RESP 18; TEMP 97.7; O2SAT 96
[2025-06-06] MEDS ORDERED: AZIT500T66 PO (10:11)
--- NOTE | 2025-06-06 10:15 | DVHPN2 ---
Reviewed: Care Plan, H&P, Labs, Medications, Previous Orders, Radiology Changes from previous H/P or p: No Changes Eyes: No Pain, No Vision change, No Conjunctivae inflammation, No Eyelid inflammation, No Other, No Redness ENT: No Ear pain, No Ear discharge, No Nose pain, No Nose discharge, No Nose congestion, No Mouth pain, No Mouth swelling, No Throat pain, No Throat swelling, No Other Cardiovascular: No Chest Pain, No Palpitations, No Orthopnea, No Paroxysmal Noc. Dyspnea, No Edema, No Lt Headedness, No Other Respiratory: No Cough, No Dry; Shortness of breath; No SOB with excertion, No Wheezing, No Hemoptysis, No Pleuritic Pain, No Sputum, No Other Gastrointestinal: No Nausea, No Vomiting, No Abdominal Pain, No Diarrhea, No Constipation, No Melena, No Hematochezia, No Other Genitourinary: No Dysuria, No Frequency, No Incontinence, No Hematuria, No Retention, No Other Musculoskeletal: No other, No neck pain, No shoulder pain, No arm pain, No back pain, No hand pain, No leg pain, No foot pain Skin: No Rash, No Lesions, No Jaundice, No Bruising, No Other Objective Vitals Vital Signs Date Time Temp Pulse Resp B/P (MAP) Pulse Ox O2 Delivery O2 Flow Rate FiO2 06/06/25 09:00 97.7 64 18 123/84 (97) 96 97.7 06/05/25 20:00 Room Air* 0 21 Intake/Output Intake and Output 06/06/25 07:00 Intake Total 675 ml Output Total 1500 ml Balance -825 ml Intake Oral 375 ml IV Total 300 ml Output Urine Total 1500 ml # Bowel Movements 5 Medications Current Medications Medications Dose Ordered Sig/Efrem Route Start Time Stop Time Status Last Admin Dose Admin Albuterol 2.5 mg Q4HPRN PRN NEB 06/03/25 22:30 Cancel Ipratropium Bryan 0.5 mg Q4HPRN PRN NEB 06/03/25 22:30 Cancel Famotidine 20 mg Q12HR IV 06/04/25 10:00 06/05/25 21:05 20 MG Oxcarbazepine 600 mg Q12HR PO 06/04/25 10:00 06/05/25 21:05 600 MG Sodium Chloride 10 ml Q8HR IV 06/04/25 06:00 06/06/25 05:46 10 ML Acetaminophen/ Hydrocodone Bitart 1 tab Q4HP PRN PO 06/03/25 22:30 06/05/25 23:57 1 TAB Ondansetron HCl 4 mg Q4HP PRN IV 06/03/25 22:30 Docusate Sodium 100 mg BIDPRN PRN PO 06/03/25 22:30 Acetaminophen 650 mg Q6HP PRN PO 06/03/25 22:30 Aspirin 81 mg DAILY PO 06/04/25 10:00 Lactated Ringer's 1,000 ml @ 100 mls/hr Q10H IV 06/03/25 22:45 06/06/25 05:13 100 MLS/HR Nitroglycerin 0.4 mg Q5MINP PRN SL 06/03/25 23:45 Morphine Sulfate 2 mg Q30M PRN IV 06/03/25 23:45 Ceftriaxone Sodium 50 ml @ 100 mls/hr DAILY@09 IV 06/04/25 09:00 06/05/25 09:17 100 MLS/HR Midodrine 10 mg TID@0600,1200,1800 PO 06/04/25 06:00 06/05/25 14:01 10 MG Azithromycin 250 ml @ 125 mls/hr DAILY IV 06/05/25 10:00 06/05/25 11:07 125 MLS/HR Laboratory Results Laboratory Tests 06/04/25 10:15 06/06/25 06:53 Urinalysis Test 06/03/25 23:13 Urine Color Yellow (Yellow) Urine Clarity Turbid (Clear) H Urine pH 5.5 (5.0-9.0) Urine Specific [place] 1.019 (1.001-1.035) Urine Protein Trace (Negative) H Urine Ketones Negative (Negative) Urine Blood 1+ /uL (Negative) H Urine Nitrite 2+ (Negative) H Urine Bilirubin Negative (Negative) Urine Urobilinogen Normal mg/dL (Negative) Urine Leukocyte Esterase 1+ /uL (Negative) Urine RBC 6 /hpf (0 - 3) Urine Microscopic WBC 9 /HPF (0-3) H Urine Squamous Epithelial Cells Few /hpf (<5) Urine Bacteria Mod /hpf (None Seen) H Urine Mucus Few (None Seen) Urine Glucose Normal mg/dL (Normal) Microbiology Microbiology Date/Time Source Procedure Growth Status 06/03/25 22:38 Blood Blood Culture - Preliminary NO GROWTH AFTER 48 HOURS OF INCUBATION. Resulted Labs and/or images reviewed: Labs reviewed by me, Image(s) reviewed by me Assessment/Plan Assessment/Plan Sepsis secondary to community-acquired pneumonia white count 21 K, will DC Solu-Medrol Acute hypoxic respiratory failure: Oxygen by nasal cannula Possible community-acquired aspiration pneumonia: Rocephin azithromycin History of seizures: Continue home medications Acute generalized weakness Flu test negative COVID test neg Patient on room air and comfortable and mother wants to take him home Plan discussed with: Patient My Orders Orders - PRINCESS MAYA MD Procedure Category Date Status Time D/C Sitter ORDERS 06/06/25 Transmitted 10:11 Date of Service: Jun 06, 2025 Billing Provider: PRINCESS MAYA MD Common Visit Codes: [id number] INP/OBS CARE(HIGH) PRINCESS MAYA MD Jun 06, 2025 10:15
--- NOTE | 2025-06-06 10:18 | DVHDS2 ---
Discharge Summary Date of Admission Jun 03, 2025 at 23:32 Date of Discharge: Jun 06, 2025 Admitting Diagnosis Shortness of breath Wounds: None Labs/Diagnostic Data: Laboratory Results Test 06/06/25 06:53 06/04/25 10:15 06/04/25 00:51 06/03/25 23:13 White Blood Count 15.6 10^3/uL (4.4-10.8) Red Blood Count 3.70 10^6/uL (4.5-5.90) Hemoglobin 11.3 g/dL (13.5-17.5) Hematocrit 34.7 % (41.0-53.0) Mean Corpuscular Volume 93.6 fL (80.0-100.0) Mean Corpuscular Hemoglobin 30.6 pg (28.0-32.0) Mean Corpuscular Hemoglobin Concent 32.7 g/dL (32.0-36.0) Red Cell Distribution Width 13.8 % (11.8-14.3) Platelet Count 76 10^3/uL (140-450) Mean Platelet Volume 10.4 fL (6.9-10.8) Neutrophils (%) (Auto) 78.4 % (37.0-80.0) Lymphocytes (%) (Auto) 13.5 % (10.0-50.0) Monocytes (%) (Auto) 7.4 % (0.0-12.0) Eosinophils (%) (Auto) 0.3 % (0.0-7.0) Basophils (%) (Auto) 0.4 % (0.0-2.0) Neutrophils # (Auto) 12.2 10 ^3/uL (1.6-8.6) Lymphocytes # (Auto) 2.1 10 ^3/uL (0.4-5.4) Monocytes # (Auto) 1.1 10 ^3/uL (0-1.3) Eosinophils # (Auto) 0.1 10 ^3/uL (0-0.8) Basophils # (Auto) 0.1 10 ^3/uL (0-0.2) Nucleated Red Blood Cells 0.0 % Differential Total Cells Counted 100.0 (100) Neutrophils % (Manual) 80 (37.0-80.0) Band Neutrophils % (Manual) 13 Lymphocytes % (Manual) 3 (10.0-50.0) Monocytes % (Manual) 4 (0-12) Eosinophils % (Manual) 0 (0-7) Basophils % (Manual) 0 (0.0-2.0) Metamyelocytes % (manual) 0 Myelocytes % (Manual) 0 Promyelocytes % (Manual) 0 Blast Cells % (Manual) 0 Reactive Lymphocytes 0 Platelet Estimate Decreased Sodium Level 144 mmol/L (136-145) Potassium Level 4.6 mmol/L (3.5-5.1) Chloride Level 109 mmol/L (98-107) Carbon Dioxide Level 23 mmol/L (20-31) Anion Gap 12 (5-15) Blood Urea Nitrogen 21 mg/dL (9-23) Creatinine 0.95 mg/dL (0.700-1.30) Glomerular Filtration Rate Calc 89 mL/min (>90) BUN/Creatinine Ratio 22.1 (10.0-20.0) Serum Glucose 135 mg/dL (74-106) Calcium Level 8.9 mg/dL (8.7-10.4) Total Bilirubin 0.2 mg/dL (0.2-1.0) Aspartate Amino Transferase (AST) 70 U/L (13-40) Alanine Aminotransferase (ALT) 53 U/L (7-40) Alkaline Phosphatase 70 U/L (46-116) Total Protein 6.3 g/dL (5.7-8.2) Albumin 3.9 g/dL (3.2-4.8) Lactic Acid Level 4.6 mmol/L (0.4-2.0) Urine Color Yellow (Yellow) Urine Clarity Turbid (Clear) Urine pH 5.5 (5.0-9.0) Urine Specific [place] 1.019 (1.001-1.035) Urine Protein Trace (Negative) Urine Ketones Negative (Negative) Urine Blood 1+ /uL (Negative) Urine Nitrite 2+ (Negative) Urine Bilirubin Negative (Negative) Urine Urobilinogen Normal mg/dL (Negative) Urine Leukocyte Esterase 1+ /uL (Negative) Urine RBC 6 /hpf (0 - 3) Urine Microscopic WBC 9 /HPF (0-3) Urine Squamous Epithelial Cells Few /hpf (<5) Urine Bacteria Mod /hpf (None Seen) Urine Mucus Few (None Seen) Urine Glucose Normal mg/dL (Normal) Influenza Type A Antigen Negative (Negative) Influenza Type B Antigen Negative (Negative) SARS-CoV-2 Antigen (Rapid) Negative (NEGATIVE) Test 06/03/25 22:38 06/03/25 15:32 Prothrombin Time 11.8 sec (9.3-11.8) Prothrombin Time INR 1.13 (0.9-1.15) Activated Partial Thromboplast Time 29.1 SEC (24.5-34.5) Troponin I High Sensitivity 84 ng/L (</=54) Other Laboratory Tests 06/06/25 06:53 06/04/25 10:15 Brief Hx & Hospital Course: 64-year-old male developmentally delayed with a history of seizures burden by mom for shortness of breaths found to have community-acquired pneumonia white count was elevated [id number] consistent with sepsis. Treated with Rocephin azithromycin and Solu-Medrol Solu-Medrol was discontinued in the white count came down. At the time of discharge patient is afebrile on room air and is normal mental status. Mother at the bedside and willing to take him home. Discharged home on azithromycin tablets. Consults/Reason for consult None Operations or Procedures None Condition at Discharge: Fair Final Diagnosis/Problems List Sepsis secondary to community-acquired pneumonia white count 21 K, will DC Solu-Medrol Acute hypoxic respiratory failure: Oxygen by nasal cannula Possible community-acquired aspiration pneumonia: Rocephin azithromycin History of seizures: Continue home medications Acute generalized weakness Flu test negative COVID test neg Discharge Disposition: Home Discharge Instruct/Medications Diet: Regular Activity: Bed rest Medications: Azithromycin Transmitted to pharmacy Scheduled Azithromycin (Azithromycin), 1 TAB PO DAILY Midodrine Hcl (Midodrine Hcl), 10 MG PO DAILY Oxcarbazepine (Trileptal), 0.5 TAB PO BID 39 (Time taken for discharge summary 39 minutes) Discharge Statement: "Patient was advised to return to the ER or call 911 if any headaches, dizziness, shortness of breath, chest pain, abdominal pain, bleeding, fevers, or worsening of medical condition. Patient was counseled about treatment plan, medications, possible side effects, patientverbalized understanding. All questions were answered to the best of my ability. This discharge took greater then 30 minutes in planning, reviewing documentation, counseling the patient, and discussing with other team members." ASSESSMENT ASSESSMENT Hospital Course Improved Assessment Sepsis secondary to community-acquired pneumonia white count 21 K, will DC Solu-Medrol Acute hypoxic respiratory failure: Oxygen by nasal cannula Possible community-acquired aspiration pneumonia: Rocephin azithromycin History of seizures: Continue home medications Acute generalized weakness Flu test negative COVID test neg Date of Service: Jun 06, 2025 Billing Provider: PRINCESS MAYA MD Common Visit Codes: [id number] DISCH DAY >30min PRINCESS MAYA MD Jun 06, 2025 10:18
[2025-06-06 11:05] VITALS: BP 123/84; PULSE 64; RESP 18; TEMP 97.7; O2SAT 96
== END 2025-06-06 12:16 | disposition home or self-care (01) | DRG 871 ==
LOC: EDBD 13:46 → ER 13:46 → OVERFLOW 23:32 → TELE-CENTR 06-04 02:44
PROVIDERS: ADMIT Family Medicine; ATTEND Family Medicine
DX: A41.9 Sepsis, unspecified organism (principal); J18.9 Pneumonia, unspecified organism; J96.01 Acute respiratory failure with hypoxia; J69.0 Pneumonitis due to inhalation of food and vomit; Z20.822 Contact with and (suspected) exposure to COVID-19; J98.4 Other disorders of lung; Z88.1 Allergy status to other antibiotic agents
CPT/HCPCS: 36415; 71045; 80048; 80053; 81001; 83605; 84484; 85007; 85025; 85027; 85610; 85730; 87040; 87426; 87804; 94640; 96361; 96374; 96375; G0378; J0131; J3490